=== PATIENT | female | born 1940 | race Caucasian/White ===

== ENCOUNTER 2020-10-03 18:57 | Emergency (ER) | payer MEDICARE, SELFPAY ==
[2020-10-03 19:31] VITALS: BP 165/78; PULSE 106; RESP 16; TEMP 36.4; O2SAT 98; BMI 25.7
[2020-10-03 19:35] VITALS: BP 165/78; PULSE 106; RESP 16; TEMP 36.4; O2SAT 98
[2020-10-03 21:04] LABS: Amphetamine Screen Urine Not Detected (Not Detect); Barbiturates, Urine Not Detected (Not Detect); Benzodiazepines Screen Urine Not Detected (Not Detect); Cannabinoid Screen Urine Not Detected (Not Detect); Cocaine Screen Urine Not Detected (Not Detect); Opiate Screen Urine Not Detected (Not Detect); Phencyclidine Screen Urine Not Detected (Not Detect)
[2020-10-03 22:12] VITALS: BP 172/80; PULSE 100; RESP 18; TEMP 36.5; O2SAT 97
--- NOTE | 2020-10-03 22:17 | ED.PSYCH ---
HPI - Psych General Chief Complaint: Psychiatric Symptoms Stated Complaint: crisis Time Seen by Provider: 10/03/20 22:17 Source: RN notes reviewed Mode of arrival: EMS Limitations: language barrier and other (Dementia) History of Present Illness HPI Narrative: Patient history of dementia came from the [facility] for increased agitation toward staff with history of same in the past staff was unable to control her center here for evaluation on arrival patient been sleeping and relaxed without any agitation Related Data Home Medications Medication Instructions Recorded Confirmed acetylcysteine 2 cap PO BID 10/03/20 10/03/20 albuterol sulfate 90 mcg INHALATION QID PRN 10/03/20 10/03/20 ammonium lactate 1 appl TOPICAL BID 10/03/20 10/03/20 clonazepam 1 mg PO TID 10/03/20 10/03/20 fluocinonide 1 applic TOPICAL DAILY PRN 10/03/20 10/03/20 fluticasone propion-salmeterol 1 inh INHALATION BID 10/03/20 10/03/20 gabapentin 1 cap PO TID 10/03/20 10/03/20 hydroxyzine HCl 1 tab PO TID PRN 10/03/20 10/03/20 insulin aspart U-100 [Novolog See Rx Instructions .ROUTE .COMPLEX 10/03/20 10/03/20 Flexpen U-100 Insulin] insulin glargine [Lantus Solostar 20 unit SUBCUT BID 10/03/20 10/03/20 U-100 Insulin] metoprolol tartrate 1 tab PO BID 10/03/20 10/03/20 montelukast 1 tab PO DAILY 10/03/20 10/03/20 polyethylene glycol 3350 17 g PO DAILY 10/03/20 10/03/20 risperidone 0.75 mg PO DAILY 10/03/20 10/03/20 risperidone 1 tab PO DAILY 10/03/20 10/03/20 tramadol 1 tab PO BID PRN 10/03/20 10/03/20 triamcinolone acetonide 1 appl TOPICAL DAILY PRN 10/03/20 10/03/20 Allergies Allergy/AdvReac Type Severity Reaction Status Date / Time aspirin [ASA] Allergy Unknown RASH Unverified 06/29/20 14:38 niacin [Niacin] Allergy Unknown Rash Unverified 10/03/20 23:59 penicillin G [Penicillin G] Allergy Unknown HIVES Unverified 06/29/20 14:38 penicillin V Allergy Unknown Hives Verified 10/03/20 23:58 Penicillins Allergy Unknown UNKNOWN Unverified 06/29/20 14:38 rofecoxib [From Vioxx] Allergy Unknown UNKNOWN Unverified 06/29/20 14:38 Iodinated Contrast Media Allergy Swelling Verified 10/04/20 00:02 [IV Contrast Dye] moxifloxacin AdvReac Nausea Verified 10/04/20 00:01 Review of Systems Review of Systems: Yes Unobtainable due to mental status [facility] Past Medical History Medical History (Updated 10/03/20 @ 22:47 by Luis M Cantu) Anemia Dementia Diabetes mellitus, type 2 Hypertension Social History Social History Alcohol intake: former Smoking Status: Current some day smoker Smoked in Last 30 Days: Yes Use of substances other than those prescribed or required for medical reasons: No Advance Directives: No Physical Exam Vital Signs: Vital Signs: Last Vital Signs Temp 97.7 F 10/03/20 22:12 Pulse 101 H 10/04/20 00:11 Resp 18 10/03/20 22:12 BP 171/82 H 10/04/20 00:11 Pulse Ox 97 10/03/20 22:12 Body Mass Index 25.7 Appearance: Alert. . No acute distress. Relaxed and sleeping Eyes: Pupils equal, round and reactive to light. ENT: Pharynx normal. Neck: Normal inspection. Neck supple. CVS: Normal heart rate and rhythm. Pulses normal. Respiratory: No respiratory distress. Breath sounds normal. Abdomen: Soft and nontender. Bowel sounds are present, no mass palpable, no CVA tenderness Skin: Skin warm and dry. Normal skin color. Normal skin turgor. Extremities: No lower extremity edema. Neuro: alert. No motor deficit. No sensory deficit. MDM - Psych MDM Narrative Medical decision making narrative: Patient dementia with psychotic behavior will get therapist see the patient for evaluation Restraints Face to Face Assessment: Face to Face Assessment: Current Situation: After assessment of the patient, a review of the pertinent medical record and a discussion with nursing staff, I feel the patient requires a restrain intervention. Reaction To: [] Medical Condition: [] Behavioral State: [] Continued Need: [] Lab Data Labs: Lab Results 10/03/20 10/03/20 10/03/20 Range/Units 20:22 20:38 23:35 POC Glucose 393 H* (60-115) mg/dL Urine Color YELLOW Urine Appearance CLEAR Urine pH 5.5 (5.0-8.0) Ur Specific [place] 1.010 (1.005-1.025) Urine Protein NEG (NEG-TRACE) MG/DL Urine Glucose (UA) 250 H (NEG) MG/DL Urine Ketones NEG (NEG) MG/DL Urine Blood NEG (NEG) Urine Nitrite NEG (NEG) Ur Leukocyte Esterase NEG (NEG) Urine Opiates Screen Not Detected (Not Detect) Ur Barbiturates Screen Not Detected (Not Detect) Ur Phencyclidine Scrn Not Detected (Not Detect) Ur Amphetamines Screen Not Detected (Not Detect) U Benzodiazepines Scrn Not Detected (Not Detect) Urine Cocaine Screen Not Detected (Not Detect) U Marijuana (THC) Screen Not Detected (Not Detect) Discharge Plan Discharge Prescriptions: No Action montelukast 10 mg tablet 1 tab PO DAILY RF: 0 metoprolol tartrate 25 mg tablet 1 tab PO BID RF: 0 acetylcysteine 600 mg capsule 2 cap PO BID RF: 0 clonazepam 0.5 mg tablet 1 mg PO TID RF: 0 risperidone 0.25 mg tablet 0.75 mg PO DAILY RF: 0 gabapentin 100 mg capsule 1 cap PO TID RF: 0 polyethylene glycol 3350 17 gram/dose powder 17 g PO DAILY RF: 0 risperidone 1 mg tablet 1 tab PO DAILY RF: 0 tramadol 50 mg tablet 1 tab PO BID PRN (Reason: Pain) RF: 0 triamcinolone acetonide 0.1 % cream 1 appl topical DAILY PRN (Reason: Itching) RF: 0 fluticasone propion-salmeterol 500-50 mcg/dose blister with device 1 inh inhalation BID RF: 0 hydroxyzine HCl 25 mg tablet 1 tab PO TID PRN (Reason: Itching) RF: 0 ammonium lactate 12 % cream 1 appl topical BID RF: 0 albuterol sulfate 90 mcg/actuation HFA aerosol inhaler 90 mcg inhalation QID PRN (Reason: Dyspnea) RF: 0 fluocinonide 0.05 % cream 1 applic topical DAILY PRN (Reason: Itching) RF: 0 insulin aspart U-100 [Novolog Flexpen U-100 Insulin] 100 unit/mL (3 mL) insulin pen See Rx Instructions .ROUTE .COMPLEX RF: 0 Lantus Solostar U-100 Insulin 100 unit/mL (3 mL) insulin pen 20 unit subcut BID RF: 0
[2020-10-03 22:42] LABS: Glucose Urine UA 250 MG/DL (NEG); Leukocyte Esterase Urine NEG (NEG); Nitrite Urine NEG (NEG); PH 5.5 (5.0-8.0); Urine Blood NEG (NEG); Urine Ketones NEG (NEG); Urine Protein NEG (NEG-TRACE)
[2020-10-03 22:45] VITALS: BMI 25.7
[2020-10-03 22:45] LABS: Appearance Urine CLEAR; Color Urine YELLOW
--- NOTE | 2020-10-03 23:34 | PC.NURSE ---
OSBALDO faxed and called.
[2020-10-03 23:39] LABS: Glucose, Whole Blood 393 mg/dL (60-115)
[2020-10-04] VITALS (12 sets, daily range): BP systolic 160–189; BP diastolic 62–94; PULSE 74–107; RESP 18–24; TEMP 35.8–36.1; O2SAT 97–99
[2020-10-04] MEDS: clonazePAM 0.5 MG TABLET 1 MG PO ×2 (00:11→20:33)
[2020-10-04] MEDS: Metoprolol Tartrate 25 MG TABLET PO ×3 (00:11→20:33)
--- NOTE | 2020-10-04 00:43 | PC.NURSE ---
PT's POC was 393 at 23:35 on 10/03/20. PT was offered long acting and rapid acting insulin per MAR but PT refusing at this time. PT accepted 2 out of 3 of her PO medications. Refusing gabapentin.
[2020-10-04] MEDS: Insulin Lispro 100 UNIT/ML 3 ML VIAL SUBCUT ×4 (00:57→17:58)
[2020-10-04] MEDS: Insulin Glargine,Hum.rec.anlog 100 UNIT/ML 10 ML VIAL 20 UNIT SUBCUT ×2 (01:00→23:43)
--- NOTE | 2020-10-04 03:16 | PC.NURSE ---
PT is out of bed, standing next to the nurse's station and speaking with staff in Malay. PT is calm and cooperative but still confused. PT waiting to be seen by BHN.
[2020-10-04] MEDS: hydrOXYzine HCL 25 MG TABLET PO (04:04)
--- NOTE | 2020-10-04 07:12 | PC.NURSE ---
Report received from CISCO Damico. Pt out in the common area, cooperative w/ care at this time.
[2020-10-04 07:16] LABS: Glucose, Whole Blood 272 mg/dL (60-115)
[2020-10-04] MEDS: Gabapentin 100 MG CAPSULE PO ×2 (08:02→20:34)
[2020-10-04] MEDS: risperiDONE 1 MG TABLET PO (08:02)
[2020-10-04] MEDS: Montelukast Sodium 10 MG TABLET PO (08:13)
--- NOTE | 2020-10-04 08:26 | PC.NURSE ---
Pt awake, restless. Used the bathroom w/ coaching but flushed urine specimen. Pt cooperative w/ care, took medications, accepted insulin. Pt mood variable, food safety specialist called.
--- NOTE | 2020-10-04 08:40 | PC.NURSE ---
Senior Production Manager in. Pt tearful because no one has picked her up. Pt stating 'i want to .' Reassured by freight clerk, pt now on toilet, attempting to give a urine.
--- NOTE | 2020-10-04 09:27 | ECG_ITS ---
Test Reason : MEDECLEARANCE Blood Pressure : / mmHG Vent. Rate : 074 BPM Atrial Rate : 074 BPM P-R Int : 132 ms QRS Dur : 118 ms QT Int : 442 ms P-R-T Axes : 058 051 099 degrees QTc Int : 490 ms Normal sinus rhythm Possible Left atrial enlargement Incomplete left bundle branch block Nonspecific ST and T wave abnormality Prolonged QT Abnormal ECG When compared with ECG of 22-MAR-2019 13:27, Nonspecific T wave abnormality now evident in Inferior leads Referred By: Generic ED Physician Electronically Signed By:LIVE REYNAGA MD
[2020-10-04 09:31] LABS: Basophils Percent Auto 0.4 % (0-2); Eosinophils Absolute Auto 0.3 X10*3/uL (0.0-0.4); Hematocrit 37.3 % (37-47); Imm Gran Abs Auto 0.04 X10*3/uL (0.00-0.03); Imm Gran Pct Auto 0.5 % (0.0-0.4); Lymphocytes Absolute Auto 1.7 X10*3/uL (1.2-4.9); Lymphocytes Percent Auto 21.7 % (20-40); Mean Corpuscular HGB Conc 32.2 g/dl (31.0-35.0); Mean Corpuscular Hemoglobin 27.6 pg (27.0-33.0); Mean Corpuscular Volume 85.9 fL (80-98); Mean Platelet Volume 9.7 fL (9.4-12.3); Monocytes Absolute Auto 0.7 X10*3/uL (0.1-1.2); Monocytes Percent Auto 9.5 % (2-11); Neutrophils Absolute Auto 4.9 X10*3/uL (2.0-8.3); Neutrophils Percent Auto 63.9 % (45-73); Platelet Count 295 X10*3/uL (160-400); Red Blood Count 4.34 X10*6/uL (4.20-5.50); Red Cell Distribution Width 13.5 % (11.0-16.0); White Blood Count 7.7 X10*3/uL (4.8-10.8)
[2020-10-04 09:32] LABS: MANUAL DIFF FLAG NO
--- NOTE | 2020-10-04 09:44 | PC.NURSE ---
Pt placed on 1:1 while awake due to increased restlessness, wandering and occasional confusion re: room. Pt briefly placed hand on chest indicating discomfort. Carmelita Osullivan aware, EKG completed. Pt currently resting in room.
[2020-10-04 10:00] LABS: Alanine Aminotransferase 32 U/L (0-31); Albumin Level 4.4 g/dL (3.5-5.0); Alkaline Phosphatase 75 U/L (39-117); Anion Gap 13 (12-20); Aspartate Amino Transferase 23 U/L (5-31); Bilirubin Direct < 0.2 mg/dL (0.0-0.5); Bilirubin Total 0.3 mg/dL (0.0-1.0); Blood Urea Nitrogen 18 mg/dL (9-16); Calcium 10.1 mg/dL (8.4-10.2); Carbon Dioxide 29 mmol/L (22-29); Chloride 95 mmol/L (96-108); Creatinine Clr Calc Pharmacy 39.4; Estimated Glomerular Filt Rate 49; Glucose Random 343 mg/dL (60-115); Magnesium 1.7 mg/dL (1.6-2.6); Potassium 4.5 mmol/l (3.3-5.1); Sodium 132 mmol/L (135-145); Total Protein 8.2 g/dL (6.5-8.0)
--- NOTE | 2020-10-04 10:03 | PC.NURSE ---
Pharmacy called re: medications unavailable in ED
--- NOTE | 2020-10-04 11:20 | PC.NURSE ---
Pt restless, mood variable, pt redirectable but requires 1:1 care for safety, clinic charge nurse aware. BHN in, or assistant present.
[2020-10-04] MEDS: Ammonium Lactate 12 % Cream 140 GM TUBE 1 APPL TOPICAL (11:37)
[2020-10-04] MEDS: Fluticasone/Vilanterol 200/25 BLST.W.DEV 1 PUFF INHALE (11:38)
[2020-10-04 11:49] LABS: Glucose, Whole Blood 346 mg/dL (60-115)
[2020-10-04] MEDS: LORazepam 2 MG/ML VIAL 1 MG IM (14:14)
--- NOTE | 2020-10-04 14:38 | PC.NURSE ---
Pt increasingly restless, intrusive, attempting to enter other people's rooms. Offered vistaril- pt declined. Called ginger farmer pt offered clonazepam and gabapentin as ordered- pt spit out despite multiple attempts. Pt becoming more aggressive, pushing staff, yelling at another pt. A Shi called- pt given Ativan IM as ordered.
--- NOTE | 2020-10-04 15:21 | MHC.CM.ED ---
Received case management consult from Rosie MORATAYA. Patient was cleared by [facility] and needs to return to [facility]. Referral made via allscripts. They are requesting [facility] eval before patient can return. Per [facility], eval will not be available tonight. Anticipate patient will remain in ER overnight. Corrina PECK aware. Continue to monitor for d/c needs.
--- NOTE | 2020-10-04 15:29 | PC.NURSE ---
Pt continues to pace, is restless though more easily redirected. Pt maintained on a 1:1 for safety related to dementia related intrusiveness
--- NOTE | 2020-10-04 16:03 | PC.NURSE ---
Pt pleasant, slightly hypersexual, putting hands on staff but not aggressive, more easily redirected.
--- NOTE | 2020-10-04 17:45 | PC.NURSE ---
Pt resting, resp unlabored
[2020-10-04 17:57] LABS: Glucose, Whole Blood 285 mg/dL (60-115)
[2020-10-04] MEDS: risperiDONE 0.25 MG TABLET 0.75 MG PO (18:09)
--- NOTE | 2020-10-04 18:12 | PC.NURSE ---
Pt continues to pace and be restless. Accepted insulin and risperdal. Pt declining supper at this time. Kitchen called, requested hamburger, which she ate at dinner. Pharmacy called to change risperdal dosing per instruction to 1800.
--- NOTE | 2020-10-04 18:27 | PC.NURSE ---
Pt brought to bathroom and toileted, voiding moderate amount.
--- NOTE | 2020-10-04 18:32 | PC.NURSE ---
Pt ate small amount of pudding, offered hamburger.
--- NOTE | 2020-10-04 22:05 | PC.NURSE ---
Patient took HS PO medication, spat out partially swallowed medication, provider notified/advised to use pudding next time, patient refused POC, will try later, patient trying to isolate herself in the room. will continue to monitor.
[2020-10-04 23:38] LABS: Glucose, Whole Blood 281 mg/dL (60-115)
[2020-10-05 00:05] VITALS: BP 154/91; PULSE 113; RESP 17; TEMP 35.8; O2SAT 99
[2020-10-05] MEDS: Ammonium Lactate 12 % Cream 140 GM TUBE 1 APPL TOPICAL ×3 (00:25→21:55)
[2020-10-05] MEDS: risperiDONE 1 MG TABLET PO ×2 (00:42→10:03)
[2020-10-05] MEDS: Insulin Lispro 100 UNIT/ML 3 ML VIAL SUBCUT ×5 (01:09→20:42)
--- NOTE | 2020-10-05 01:14 | PC.NURSE ---
Patient has no insight, psychotic, needs ADL support for care, showered, patient voided in her water jar and jar was removed immediately, patient needs lot of redirection, will continue to monitor.
--- NOTE | 2020-10-05 06:43 | PC.NURSE ---
OSBALDO called/spoke with Kyler/requested to fax evaluation. [facility] [place] faxed us evaluation
--- NOTE | 2020-10-05 07:05 | PC.NURSE ---
Report received. PT currently sleeping, respirations even and unlabored, in no apparent distress. OSBALDO tillman received. To be given to case management this monring.
--- NOTE | 2020-10-05 08:26 | MHC.CM.ED ---
Patient remains in ER. Copy of N eval obtained and sent to [facility]. Continue to monitor for d/c needs.
[2020-10-05 09:15] LABS: Glucose, Whole Blood 341 mg/dL (60-115)
[2020-10-05 10:03] VITALS: BP 154/91; PULSE 113
[2020-10-05] MEDS: clonazePAM 0.5 MG TABLET 1 MG PO ×3 (10:03→20:35)
[2020-10-05] MEDS: Montelukast Sodium 10 MG TABLET PO (10:03)
[2020-10-05] MEDS: Gabapentin 100 MG CAPSULE PO ×3 (10:03→20:10)
[2020-10-05] MEDS: Metoprolol Tartrate 25 MG TABLET PO ×2 (10:03→20:11)
[2020-10-05] MEDS: Insulin Glargine,Hum.rec.anlog 100 UNIT/ML 10 ML VIAL 20 UNIT SUBCUT ×2 (10:03→20:37)
[2020-10-05] MEDS: polyethylene glycoL 3350 17 GM POWD.PACK PO (10:03)
[2020-10-05] MEDS: Fluticasone/Vilanterol 200/25 BLST.W.DEV 1 PUFF INHALE (10:23)
[2020-10-05 10:25] VITALS: PULSE 98; O2SAT 99
--- NOTE | 2020-10-05 11:24 | MHC.CM.ED ---
Per Ronni at [facility], they will not be able to accept patient today since she received PRN antipsychotic. Leatha Redd has been asked to see patient for medication recommendations. Continue to monitor for d/c needs.
[2020-10-05 12:50] LABS: Glucose, Whole Blood 270 mg/dL (60-115)
--- NOTE | 2020-10-05 13:06 | P.CNPS_ITS ---
History of Present Illness Date of Service: 10/05/2020 Chief Complaint: crisis Reason for Consult: medication eval Requesting physician: Janki Marlow Discussed with referring provider: No Sources of Information: patient interviewed, chart reviewed and crisis/core team assessment reviewed HPI Narrative: Patient is a 80 year old Georgian speaking female with history of dementia who currently resides at [facility]--presented to ED after reported aggressive behaviors at residence. Crisis evaluation reviewed, minimal information included in evaluation--so unclear if reported behaviors are acute or worsening over time, etc. While in ED patient has required some redirection and mainly around entering other patient rooms. Did require one extra dose of Risperdal, but it is reported that is because she spit out her scheduled dose earlier in the evening. When seen by this sports writer, patient was initially asleep, then woke to use the restroom. She was unable to engage in any meaningful conversation. Medical Evaluation Reviewed: Yes EKG shows prolonged QT slight hyponatremia at 132 Review of Systems Review of Systems Yes Unobtainable due to mental status [facility] Medical History (Updated 10/05/20 @ 13:35 by Leatha Redd CNP) Anemia Dementia Diabetes mellitus, type 2 Hypertension Diagnostics Vital Signs (24Hr): Vital Signs - 24 hr 10/04/20 14:15 10/04/20 14:30 10/04/20 14:45 Temperature Pulse Rate Respiratory Rate 24 H 24 H 20 Blood Pressure Pulse Oximetry 10/04/20 15:00 10/04/20 15:15 10/04/20 20:33 Temperature Pulse Rate 107 H Respiratory Rate 18 22 H Blood Pressure 189/94 H Pulse Oximetry 10/04/20 20:34 10/05/20 00:05 10/05/20 10:03 Temperature 97 F 96.4 F L Pulse Rate 107 H 113 H 113 H Respiratory Rate 20 17 Blood Pressure 189/94 H 154/91 H 154/91 H Pulse Oximetry 97 99 10/05/20 10:25 Temperature Pulse Rate 98 Respiratory Rate Blood Pressure Pulse Oximetry Body Mass Index 25.7 Labs Results: 10/04/20 09:22 10/04/20 09:22 Labs: Laboratory Results - last 48 hr 10/03/20 10/03/20 10/03/20 20:22 20:38 23:35 WBC RBC Hgb Hct MCV MCH MCHC RDW Plt Count MPV Immature Gran % (Auto) Neut % (Auto) Lymph % (Auto) [place] % (Auto) Eos % (Auto) Baso % (Auto) Lymph # (Auto) [place] # (Auto) Eos # (Auto) Baso # (Auto) Abs Immat Gran (auto) Absolute Neuts (auto) Absolute Nucleated RBC Nucleated RBC % (auto) Hold Blue Top Sodium Potassium Chloride Carbon Dioxide Anion Gap BUN Creatinine Estim Creat Clear Calc Estimated GFR POC Glucose 393 H* Random Glucose Calcium Magnesium Total Bilirubin Direct Bilirubin AST ALT Alkaline Phosphatase Total Protein Albumin Urine Color YELLOW Urine Appearance CLEAR Urine pH 5.5 Ur Specific [place] 1.010 Urine Protein NEG Urine Glucose (UA) 250 H Urine Ketones NEG Urine Blood NEG Urine Nitrite NEG Ur Leukocyte Esterase NEG Urine Opiates Screen Not Detected Ur Barbiturates Screen Not Detected Ur Phencyclidine Scrn Not Detected Ur Amphetamines Screen Not Detected U Benzodiazepines Scrn Not Detected Urine Cocaine Screen Not Detected U Marijuana (THC) Screen Not Detected 10/04/20 10/04/20 10/04/20 07:12 09:22 09:22 WBC 7.7 RBC 4.34 Hgb 12.0 Hct 37.3 MCV 85.9 MCH 27.6 MCHC 32.2 RDW 13.5 Plt Count 295 MPV 9.7 Immature Gran % (Auto) 0.5 H Neut % (Auto) 63.9 Lymph % (Auto) 21.7 [place] % (Auto) 9.5 Eos % (Auto) 4.0 Baso % (Auto) 0.4 Lymph # (Auto) 1.7 [place] # (Auto) 0.7 Eos # (Auto) 0.3 Baso # (Auto) 0.0 Abs Immat Gran (auto) 0.04 H Absolute Neuts (auto) 4.9 Absolute Nucleated RBC 0.000 Nucleated RBC % (auto) 0.0 Hold Blue Top SEE NOTE Sodium Potassium Chloride Carbon Dioxide Anion Gap BUN Creatinine Estim Creat Clear Calc Estimated GFR POC Glucose 272 H Random Glucose Calcium Magnesium Total Bilirubin Direct Bilirubin AST ALT Alkaline Phosphatase Total Protein Albumin Urine Color Urine Appearance Urine pH Ur Specific [place] Urine Protein Urine Glucose (UA) Urine Ketones Urine Blood Urine Nitrite Ur Leukocyte Esterase Urine Opiates Screen Ur Barbiturates Screen Ur Phencyclidine Scrn Ur Amphetamines Screen U Benzodiazepines Scrn Urine Cocaine Screen U Marijuana (THC) Screen 10/04/20 10/04/20 10/04/20 09:22 11:45 17:51 WBC RBC Hgb Hct MCV MCH MCHC RDW Plt Count MPV Immature Gran % (Auto) Neut % (Auto) Lymph % (Auto) [place] % (Auto) Eos % (Auto) Baso % (Auto) Lymph # (Auto) [place] # (Auto) Eos # (Auto) Baso # (Auto) Abs Immat Gran (auto) Absolute Neuts (auto) Absolute Nucleated RBC Nucleated RBC % (auto) Hold Blue Top Sodium 132 L Potassium 4.5 Chloride 95 L Carbon Dioxide 29 Anion Gap 13 BUN 18 H Creatinine 1.08 Estim Creat Clear Calc 39.4 Estimated GFR 49 POC Glucose 346 H 285 H Random Glucose 343 H Calcium 10.1 Magnesium 1.7 Total Bilirubin 0.3 Direct Bilirubin < 0.2 AST 23 ALT 32 H Alkaline Phosphatase 75 Total Protein 8.2 H Albumin 4.4 Urine Color Urine Appearance Urine pH Ur Specific [place] Urine Protein Urine Glucose (UA) Urine Ketones Urine Blood Urine Nitrite Ur Leukocyte Esterase Urine Opiates Screen Ur Barbiturates Screen Ur Phencyclidine Scrn Ur Amphetamines Screen U Benzodiazepines Scrn Urine Cocaine Screen U Marijuana (THC) Screen 10/04/20 10/05/20 10/05/20 23:33 09:11 12:45 WBC RBC Hgb Hct MCV MCH MCHC RDW Plt Count MPV Immature Gran % (Auto) Neut % (Auto) Lymph % (Auto) [place] % (Auto) Eos % (Auto) Baso % (Auto) Lymph # (Auto) [place] # (Auto) Eos # (Auto) Baso # (Auto) Abs Immat Gran (auto) Absolute Neuts (auto) Absolute Nucleated RBC Nucleated RBC % (auto) Hold Blue Top Sodium Potassium Chloride Carbon Dioxide Anion Gap BUN Creatinine Estim Creat Clear Calc Estimated GFR POC Glucose 281 H 341 H 270 H Random Glucose Calcium Magnesium Total Bilirubin Direct Bilirubin AST ALT Alkaline Phosphatase Total Protein Albumin Urine Color Urine Appearance Urine pH Ur Specific [place] Urine Protein Urine Glucose (UA) Urine Ketones Urine Blood Urine Nitrite Ur Leukocyte Esterase Urine Opiates Screen Ur Barbiturates Screen Ur Phencyclidine Scrn Ur Amphetamines Screen U Benzodiazepines Scrn Urine Cocaine Screen U Marijuana (THC) Screen Mental Status Exam Mental Status Exam Level of Consciousness: Awake Patient Behavior: Wandering Mood Description: Anxious Affect Description: Anxious Ability to Follow Directions: Fair Speech Pattern: Clear and Rambling Thought Process: Confusion Thought Content: positive for [place] Judgement: Poor Medications Medications Current Medications Generic Name Dose Route Start Last Admin Trade Name Freq PRN Reason Stop Dose Admin Albuterol Sulfate 2 puff 10/03/20 23:46 Albuterol Sulfate 90 Mcg 8 Gm Inhaler INHALE QID PRN Dyspnea Clonazepam 1 mg 10/03/20 23:45 10/05/20 10:03 Clonazepam 0.5 Mg Tablet PO 1 mg TID DANIELLE Administration Fluticasone/Vilanterol 1 puff 10/04/20 09:00 10/05/20 10:23 Fluticasone/Vilanterol 200/25 Blst.W.Dev INHALE 1 puff DAILY DANIELLE Administration Gabapentin 100 mg 10/03/20 23:45 10/05/20 10:03 Gabapentin 100 Mg Capsule PO 100 mg TID DANIELLE Administration Hydroxyzine HCl 25 mg 10/03/20 23:46 10/04/20 04:04 Hydroxyzine Hcl 25 Mg Tablet PO 25 mg TID PRN Administration Itching Insulin Glargine 20 unit 10/03/20 23:45 10/05/20 10:03 Insulin Glargine,Hum.Rec.Anlog 100 Unit/Ml 10 Ml Vial SUBCUT 20 unit BID DANIELLE Administration Insulin Human Lispro 0 unit 10/04/20 07:30 10/05/20 09:19 Insulin Lispro 100 Unit/Ml 3 Ml Vial SUBCUT 8 unit QIDACHS [facility] Administration Protocol Lactic Acid 1 appl 10/04/20 09:00 10/05/20 10:03 Ammonium Lactate 12 % Cream 140 Gm Tube TOPICAL 1 appl BID [facility] Administration Protocol Metoprolol Tartrate 25 mg 10/03/20 23:45 10/05/20 10:03 Metoprolol Tartrate 25 Mg Tablet PO 25 mg BID DANIELLE Administration Protocol Montelukast Sodium 10 mg 10/04/20 09:00 10/05/20 10:03 Montelukast Sodium 10 Mg Tablet PO 10 mg DAILY DANIELLE Administration Non-Formulary Medication 2 cap 10/04/20 09:00 Acetylcysteine PO BID DANIELLE Non-Formulary Medication 1 applic 10/03/20 23:46 Fluocinonide TOPICAL DAILY PRN Itching Polyethylene Glycol 17 gm 10/04/20 09:00 10/05/20 10:03 Polyethylene Glycol 3350 17 Gm Powd.Pack PO 17 gm DAILY DANIELLE Administration Risperidone 1 mg 10/04/20 09:00 10/05/20 10:03 Risperidone 1 Mg Tablet PO 1 mg DAILY DANIELLE Administration Risperidone 0.75 mg 10/05/20 18:00 Risperidone 0.25 Mg Tablet PO DAILY@1800 DANIELLE Tramadol HCl 50 mg 10/03/20 23:46 Tramadol Hcl 50 Mg Tablet PO BID PRN Pain Triamcinolone Acetonide 1 appl 10/03/20 23:46 Triamcinolone Acet 0.1 % Cream 15 Gm Tube TOPICAL DAILY PRN Itching Protocol Allergies Allergies Allergy/AdvReac Type Severity Reaction Status Date / Time aspirin [ASA] Allergy Unknown RASH Unverified 06/29/20 14:38 niacin [Niacin] Allergy Unknown Rash Unverified 10/03/20 23:59 penicillin G [Penicillin G] Allergy Unknown HIVES Unverified 06/29/20 14:38 penicillin V Allergy Unknown Hives Verified 10/03/20 23:58 Penicillins Allergy Unknown UNKNOWN Unverified 06/29/20 14:38 rofecoxib [From Vioxx] Allergy Unknown UNKNOWN Unverified 06/29/20 14:38 Iodinated Contrast Media Allergy Swelling Verified 10/04/20 00:02 [IV Contrast Dye] moxifloxacin AdvReac Nausea Verified 10/04/20 00:01 Assessment & Plan Assessment & Plan (1) Dementia: Status: Acute Code(s): F03.90 - Unspecified dementia without behavioral disturbance Recommendations: -follow up with outpatient provider regarding additional medication changes -labwork to be repeated Greater than 50% of the session was spent on counseling and/or coordination of care
[2020-10-05 14:18] LABS: Alanine Aminotransferase 32 U/L (0-31); Albumin Level 3.5 g/dL (3.5-5.0); Alkaline Phosphatase 61 U/L (39-117); Anion Gap 18 (12-20); Aspartate Amino Transferase 37 U/L (5-31); Bilirubin Total 0.3 mg/dL (0.0-1.0); Blood Urea Nitrogen 29 mg/dL (9-16); Calcium 9.5 mg/dL (8.4-10.2); Carbon Dioxide 20 mmol/L (22-29); Chloride 100 mmol/L (96-108); Creatinine Clr Calc Pharmacy 41.7; Estimated Glomerular Filt Rate 52; Glucose Random 262 mg/dL (60-115); Potassium 5.5 mmol/l (3.3-5.1); Sodium 132 mmol/L (135-145)
[2020-10-05 14:29] VITALS: RESP 16
--- NOTE | 2020-10-05 14:30 | ECG_ITS ---
Test Reason : CARDIAC HX Blood Pressure : / mmHG Vent. Rate : 085 BPM Atrial Rate : 085 BPM P-R Int : 146 ms QRS Dur : 112 ms QT Int : 410 ms P-R-T Axes : 064 040 167 degrees QTc Int : 487 ms Normal sinus rhythm Incomplete left bundle branch block Nonspecific T wave abnormality Prolonged QT Abnormal ECG When compared with ECG of 04-OCT-2020 09:32, No significant change was found Referred By: Sly Knight Electronically Signed By:LIVE REYNAGA MD
[2020-10-05] MEDS: Sodium Polystyrene Sulfon/Sorb 15 GM/60 ML ORAL.SUSP 45 GM PO (14:41)
[2020-10-05 18:22] LABS: Glucose, Whole Blood 229 mg/dL (60-115)
[2020-10-05] MEDS: risperiDONE 0.25 MG TABLET 0.75 MG PO (20:10)
[2020-10-05 20:11] VITALS: BP 171/92; PULSE 111
[2020-10-05 20:24] LABS: Glucose, Whole Blood 303 mg/dL (60-115)
[2020-10-05 21:59] VITALS: BP 112/49; PULSE 79; RESP 16; TEMP 36.6; O2SAT 97
--- NOTE | 2020-10-05 22:08 | PC.NURSE ---
RECVD REPORT FROM ABDOUL PECK. PT WHEELED INTO ED IN WHEELCHAIR, 1 PERSON ASSIST FROM WHEELCHAIR TO BED, PT L SIDE LYING IN BED SLEEPING, RR EVEN UNLABORED, SKIN WPD, NAD. PT AWAITING CM EVAL.
[2020-10-06] VITALS (7 sets, daily range): BP systolic 98–142; BP diastolic 46–77; PULSE 84–100; RESP 14–18; TEMP 36.8; O2SAT 95–97
--- NOTE | 2020-10-06 01:25 | PC.NURSE ---
PATIENT SLEEPING AT THIS TIME, NO ACUTE DISTRESS NOTED. RESPIRATIONS EVEN/UNLABORED. WILL CONTINUE TO MONITOR.
--- NOTE | 2020-10-06 05:47 | PC.NURSE ---
patient continues to sleep at this time. respirations even/unlabored. did not disturb. breakfast ordered. will continue to monitor.
--- NOTE | 2020-10-06 07:08 | PC.NURSE ---
REPORT TAKEN FROM EFRAÍN PECK PT APPEARS SLEEPING, BREAKFAST AT BEDSIDE. RR EVEN/UNLABORED. ALERT TO TACTILE STIMULI. WCTM.
[2020-10-06 08:12] LABS: Glucose, Whole Blood 204 mg/dL (60-115)
--- NOTE | 2020-10-06 08:15 | PC.NURSE ---
pt appears sleeping, arousable to tactile and loud verbal stimuli but easily falling back asleep. pt has not eaten any breakfast, poc glucose checked. insulin coverage held at this time d/t pt status. vss.
[2020-10-06] MEDS: Gabapentin 100 MG CAPSULE PO ×2 (10:28→21:36)
[2020-10-06] MEDS: Metoprolol Tartrate 25 MG TABLET PO ×2 (10:28→21:36)
[2020-10-06] MEDS: risperiDONE 1 MG TABLET PO (10:28)
[2020-10-06] MEDS: clonazePAM 0.5 MG TABLET 1 MG PO ×2 (10:28→21:36)
[2020-10-06] MEDS: Fluticasone/Vilanterol 200/25 BLST.W.DEV 1 PUFF INHALE (10:29)
[2020-10-06] MEDS: Montelukast Sodium 10 MG TABLET PO (10:29)
[2020-10-06] MEDS: Ammonium Lactate 12 % Cream 140 GM TUBE 1 APPL TOPICAL ×2 (10:29→21:37)
[2020-10-06] MEDS: Insulin Glargine,Hum.rec.anlog 100 UNIT/ML 10 ML VIAL 20 UNIT SUBCUT (10:29)
[2020-10-06] MEDS: polyethylene glycoL 3350 17 GM POWD.PACK PO (10:30)
--- NOTE | 2020-10-06 10:40 | PC.NURSE ---
medicated per emar, pt given morning meds w apple juice which pt tolerated. pt has hx of spitting meds. resting in stretcher, alert to verbal stimuli. wctm.
[2020-10-06 11:40] LABS: Glucose, Whole Blood 189 mg/dL (60-115)
--- NOTE | 2020-10-06 14:03 | PC.NURSE ---
pt continues to sleep throughout afternoon, easily arousable to verbal and tactile stimuli. attempting w guamanian speaking staff to get pt to eat lunch. pt refusing to eat any items on lunch tray. has been drinking juice throughout morning and took morning medications. vss. arias.
[2020-10-06 18:57] LABS: Glucose, Whole Blood 159 mg/dL (60-115)
[2020-10-06] MEDS: risperiDONE 0.25 MG TABLET 0.75 MG PO (19:21)
--- NOTE | 2020-10-06 19:26 | PC.NURSE ---
Patient still refusing to eat. Insulin coverage held as patient's blood sugar was 159. MD aware. Patient medicated per emar as noted.
[2020-10-06 20:51] LABS: Glucose, Whole Blood 200 mg/dL (60-115)
[2020-10-07] VITALS (14 sets, daily range): BP systolic 95–165; BP diastolic 41–91; PULSE 78–91; RESP 14–22; TEMP 36.7–36.8; O2SAT 96–99
[2020-10-07 07:49] LABS: Glucose, Whole Blood 177 mg/dL (60-115)
[2020-10-07] MEDS: Ammonium Lactate 12 % Cream 140 GM TUBE 1 APPL TOPICAL ×2 (08:09→20:40)
[2020-10-07] MEDS: Fluticasone/Vilanterol 200/25 BLST.W.DEV 1 PUFF INHALE (08:09)
[2020-10-07] MEDS: clonazePAM 0.5 MG TABLET 1 MG PO ×2 (08:10→20:37)
[2020-10-07] MEDS: risperiDONE 1 MG TABLET PO (08:10)
[2020-10-07] MEDS: Metoprolol Tartrate 25 MG TABLET PO ×2 (08:10→20:37)
[2020-10-07] MEDS: Montelukast Sodium 10 MG TABLET PO (08:10)
[2020-10-07] MEDS: Gabapentin 100 MG CAPSULE PO ×2 (08:10→20:39)
[2020-10-07] MEDS: Insulin Glargine,Hum.rec.anlog 100 UNIT/ML 10 ML VIAL 20 UNIT SUBCUT ×2 (08:11→20:37)
--- NOTE | 2020-10-07 10:23 | MHC.CM.ED ---
consulted aidee ordaz caring for patient in the e.d. today... patient is still sedated c minimal responsiveness and has not eaten in last 24 hrs. pt would not be appropriate to return to snf at this time. dc plan is for patient to return to [facility] where she came from. cm to cont. to follow.
[2020-10-07] MEDS: traMADoL HCL 50 MG TABLET PO (11:34)
[2020-10-07 11:59] LABS: Glucose, Whole Blood 239 mg/dL (60-115)
--- NOTE | 2020-10-07 13:38 | MHC.CM.PN ---
UPDATES SENT TO [facility] VIA [email or web address]. CASE MANAGEMENT FOLLOWING
--- NOTE | 2020-10-07 13:52 | MHC.CM.ED ---
[facility] HAS INFORMED CASE MANAGEMENT THAT PATIENT WILL HAVE TO WAIT UNTIL FRIDAY IN ORDER FOR US TO RE-QUARANTINE HER
[2020-10-07] MEDS: LORazepam 2 MG/ML VIAL 0.5 MG IM (17:06)
[2020-10-07] MEDS: hydrOXYzine HCL 50 MG/ML VIAL IM (17:19)
[2020-10-07 20:22] LABS: Glucose, Whole Blood 178 mg/dL (60-115)
[2020-10-07] MEDS: Insulin Lispro 100 UNIT/ML 3 ML VIAL SUBCUT (20:36)
[2020-10-08] VITALS: BP 136/66; PULSE 84; RESP 16; O2SAT 96
--- NOTE | 2020-10-08 07:51 | PC.NURSE ---
PT IS SLEEPING AT SHIFT CHANGE, COLOR IS PINK AND RESP ARE EQUAL AND NONLABORED
--- NOTE | 2020-10-08 09:19 | PC.NURSE ---
Pt in nad, continues to sleep. Respirations are even and unlabored, skin is pwdi. Will continue to monitor. Pending case management service for placement.
[2020-10-08 09:29] VITALS: RESP 14
--- NOTE | 2020-10-08 09:29 | MHC.CM.ED ---
Review of ED summary and all CM notes: Met with pt to confirm d/c plans: Pt will be able to return to [facility] on Friday, 10/09 with a negative COVID test and new [facility] quarantine protocol. Pt agrees with plan. Updated ED care team on above.
[2020-10-08 11:59] VITALS: RESP 16
[2020-10-08 15:37] VITALS: BP 141/83; PULSE 98; RESP 16
[2020-10-08 15:52] LABS: Glucose, Whole Blood 165 mg/dL (60-115)
--- NOTE | 2020-10-08 15:58 | PC.NURSE ---
Pt awake, got up to use bathroom. Currently sitting up in recliner.
[2020-10-08] MEDS: clonazePAM 0.5 MG TABLET 1 MG PO ×2 (16:06→21:29)
[2020-10-08] MEDS: Gabapentin 100 MG CAPSULE PO ×2 (16:07→21:29)
--- NOTE | 2020-10-08 16:16 | MHC.CM.ED ---
Pt will return to [facility] on 10/09 per communication with admissions liasion. Pt will need a negative rapid COVID result prior to transfer. This information was relayed to the ED provider who will note it in the ED summary for the next provider to order on 10/09. Informed pt of d/c plan - she nodded in acceptance and asked to go back to sleep. CM will follow
--- NOTE | 2020-10-08 16:17 | PC.NURSE ---
Pt medicated with 3pm medication. Tolerated well.
--- NOTE | 2020-10-08 16:48 | PC.NURSE ---
Pt back to bed, declined food at this time. Insulin held due to pt not eating at this time blood sugar 165. RAFIA Haider aware and agrees.
[2020-10-08] MEDS: Ammonium Lactate 12 % Cream 140 GM TUBE 1 APPL TOPICAL (21:29)
[2020-10-08] MEDS: Insulin Glargine,Hum.rec.anlog 100 UNIT/ML 10 ML VIAL 20 UNIT SUBCUT (21:29)
[2020-10-08 21:30] VITALS: BP 168/75; PULSE 94
[2020-10-08] MEDS: Metoprolol Tartrate 25 MG TABLET PO (21:30)
--- NOTE | 2020-10-08 21:30 | PC.NURSE ---
PATIENT MEDICATED AND GIVEN A SNACK. PATIENT IS ALERT ABLE TO COMMUNICATE NEEDS. NO DISTRESS NOTED. AMBULATED WITH ASSIST OF 1 TO THE RESTROOM, HAVING SOME LOOSE STOOL. NO COMPLAINTS AT THIS TIME. IN VIEW OF NURSING STAFF AT THE NURSES STATION.
[2020-10-08 21:58] LABS: Glucose, Whole Blood 205 mg/dL (60-115)
[2020-10-08] MEDS: Insulin Lispro 100 UNIT/ML 3 ML VIAL SUBCUT (22:01)
--- NOTE | 2020-10-08 23:16 | PC.NURSE ---
REPORT FROM CISCO THAPA. PATIENT RESTING ON STRETCHER AWAITING DISPOSITION FROM CASE [facility]NAG[facility] FOR FACILITY PLACEMENT, ?[place] ON FRIDAY.
[2020-10-09] VITALS (8 sets, daily range): BP systolic 123–156; BP diastolic 56–74; PULSE 73–94; RESP 16–20; TEMP 36.2–37; O2SAT 96–99
[2020-10-09 07:12] LABS: Glucose, Whole Blood 195 mg/dL (60-115)
[2020-10-09] MEDS: Insulin Lispro 100 UNIT/ML 3 ML VIAL SUBCUT ×3 (07:26→16:37)
[2020-10-09 09:37] LABS: COVID-19 Test Negative (Negative)
--- NOTE | 2020-10-09 09:45 | MHC.CM.ED ---
Patient remains in ER. Clinical updates, including negative Covid provided to Anabella Hernandez. Continue to monitor for d/c needs.
[2020-10-09 10:05] LABS: Glucose, Whole Blood 165 mg/dL (60-115)
--- NOTE | 2020-10-09 10:49 | MHC.CM.ED ---
Received notification from Ronni, liaison at [facility], they would not be able to accept patient back due to baheaviors including requiring 2 security guards at bedside and requiring IM Ativan. . T/W explained that was on 10/07 around 4pm. Also explained nursing notes show no behaviors since then. Jose will provide this information to the director of home economics for the [facility]. Val Warner, egg caser aware. Continue to monitor for d/c needs.
[2020-10-09] MEDS: Ammonium Lactate 12 % Cream 140 GM TUBE 1 APPL TOPICAL (11:26)
[2020-10-09] MEDS: Gabapentin 100 MG CAPSULE PO ×3 (11:26→21:06)
[2020-10-09] MEDS: Metoprolol Tartrate 25 MG TABLET PO ×2 (11:26→21:07)
[2020-10-09] MEDS: Montelukast Sodium 10 MG TABLET PO (11:26)
[2020-10-09] MEDS: risperiDONE 1 MG TABLET PO (11:26)
[2020-10-09] MEDS: polyethylene glycoL 3350 17 GM POWD.PACK PO (11:26)
[2020-10-09] MEDS: Fluticasone/Vilanterol 200/25 BLST.W.DEV 1 PUFF INHALE (11:27)
[2020-10-09 12:38] LABS: Glucose, Whole Blood 190 mg/dL (60-115)
--- NOTE | 2020-10-09 14:57 | MHC.CM.ED ---
Received notification from liliana Rudolphison at [facility] that a quarentine bed will not be available until Wed. Patient can return to facility then, as long as there are no behavior issues. Continue to monitor for d/c needs.
--- NOTE | 2020-10-09 15:12 | MHC.CM.ED ---
Spoke with patient's brother/hcp Sarthak via telephone at [phone]. Explained patient is expected to return to [facility] on . Sarthak verbalized understanding. Continue to monitor for d/c notes.
[2020-10-09 16:33] LABS: Glucose, Whole Blood 163 mg/dL (60-115)
--- NOTE | 2020-10-09 19:00 | PC.NURSE ---
REPORT RECEIVED FROM CISCO DASH. PT SLEEPING AT THIS TIME, MEDS HELD DUE TO SLEEPING. WILL CONTINUE TO MONITOR.
[2020-10-09] MEDS: risperiDONE 0.25 MG TABLET 0.75 MG PO (21:06)
[2020-10-09] MEDS: Insulin Glargine,Hum.rec.anlog 100 UNIT/ML 10 ML VIAL 20 UNIT SUBCUT (21:07)
--- NOTE | 2020-10-09 21:07 | PC.NURSE ---
PATIENT OUT OF BED, AMBULATING AROUND UNIT, ATTEMPTED TO ENTER ANOTHER PATIENT'S ROOM, BUT WAS RE-DIRECTED AWAY FROM ROOM. LINENS CHANGED, WARM BLANKET GIVEN. GIVEN APPLE JUICE, ORANGE JUICE, AND WATER REQUESTED. RAMBLING IN YAKUT, OCCASIONALLY SWEARING, BUT RE-DIRECTABLE. ATTEMPTED TO OBTAIN POC GLUCOSE, BUT WAS UNABLE TO AT THIS TIME DUE TO FLOW ERROR ON GLUCOMETER. GIVEN LANTUS IN RIGHT UPPER ARM. WILL RE-ATTEMPT TO CHECK POC GLUCOSE AT A LATER TIME. MEDICATIONS CRUSHED AND GIVEN IN APPLE JUICE WITHOUT ISSUE. NOW RESTING IN 22H BED, NEAR CHARGE DESK. EDWARD VAZQUEZ (SANDER SETTER) AWARE OF INCIDENT.
--- NOTE | 2020-10-10 04:30 | PC.NURSE ---
PATIENT SLEEPING AT THIS TIME. WILL CONTINUE TO MONITOR.
--- NOTE | 2020-10-10 06:01 | PC.NURSE ---
PATIENT REQUESTED AND GIVEN STEPHON CRACKERS. WILL CONTINUE TO MONITOR.
[2020-10-10 06:19] LABS: Glucose, Whole Blood 241 mg/dL (60-115)
--- NOTE | 2020-10-10 07:21 | PC.NURSE ---
Report received. PT ate breakfast and is now laying in bed. Calm and cooperative. PT waiting to be transferred back to [facility] where she lives.
[2020-10-10 07:34] LABS: Glucose, Whole Blood 348 mg/dL (60-115)
[2020-10-10] MEDS: Insulin Lispro 100 UNIT/ML 3 ML VIAL SUBCUT (07:44)
--- NOTE | 2020-10-10 08:43 | MHC.CM.ED ---
Patient remains in ER. Anticipate patient will return to [facility] on . Continue to monitor for d/c needs.
[2020-10-10 09:24] LABS: Glucose, Whole Blood 317 mg/dL (60-115)
[2020-10-10 09:29] VITALS: BP 116/67; PULSE 90
[2020-10-10] MEDS: Metoprolol Tartrate 25 MG TABLET PO (09:29)
[2020-10-10] MEDS: polyethylene glycoL 3350 17 GM POWD.PACK PO (09:29)
[2020-10-10] MEDS: Insulin Glargine,Hum.rec.anlog 100 UNIT/ML 10 ML VIAL 20 UNIT SUBCUT (09:29)
[2020-10-10] MEDS: risperiDONE 1 MG TABLET PO (09:30)
[2020-10-10] MEDS: Montelukast Sodium 10 MG TABLET PO (09:30)
[2020-10-10] MEDS: Gabapentin 100 MG CAPSULE PO ×2 (09:30→15:28)
[2020-10-10] MEDS: Ammonium Lactate 12 % Cream 140 GM TUBE 1 APPL TOPICAL (10:36)
[2020-10-10] MEDS: Triamcinolone Acet 0.5 % Cream 15 GM TUBE 1 APPL TOPICAL (10:36)
[2020-10-10] MEDS: Fluticasone/Vilanterol 200/25 BLST.W.DEV 1 PUFF INHALE (10:36)
[2020-10-10 11:27] LABS: Glucose, Whole Blood 183 mg/dL (60-115)
[2020-10-10 11:35] VITALS: BP 127/62; PULSE 82; RESP 16; TEMP 37.9; O2SAT 99
--- NOTE | 2020-10-10 15:19 | PC.NURSE ---
Report received form Jose PECK. Patient resting comfortably on stretcher. Calm and cooperative. No complaints at this time. Respirations regular and even. Skin PWD. Will continue to monitor.
[2020-10-10 17:22] VITALS: BP 96/56; PULSE 68; RESP 18; O2SAT 98
--- NOTE | 2020-10-10 17:23 | PC.NURSE ---
PATIENT ASLEEP ON STRETCHER AT THIS TIME. RESPIRATIONS REMAIN REGULAR AND EVEN. SKIN PWD. NO DISTRESS NOTED. WILL CONTINUE TO MONITOR.
[2020-10-10 17:57] LABS: Glucose, Whole Blood 183 mg/dL (60-115)
--- NOTE | 2020-10-10 18:40 | PC.NURSE ---
Patient continues to sleep at this time. POC- 183. Attempted to awake patient for dinner, but patient not interested at this time. Will re-try in a bit. Patient appears comfortable with equal chest rise/fall. Will continue to monitor.
--- NOTE | 2020-10-10 21:10 | PC.NURSE ---
pt is sleeping, dinner try untouched. skin warm and dry.
[2020-10-11 05:53] VITALS: BP 117/59; PULSE 83; RESP 16; TEMP 36.7; O2SAT 98
[2020-10-11 08:44] VITALS: BP 148/79; PULSE 85; RESP 18; TEMP 36.5; O2SAT 96
[2020-10-11] MEDS: Metoprolol Tartrate 25 MG TABLET PO (09:00)
--- NOTE | 2020-10-11 09:07 | MHC.CM.ED ---
Patient remains in ER. [facility] is expected to have a quarentine bed available today. Clinical updates sent via [employer]. Continue to monitor for d/c needs.
[2020-10-11 09:20] LABS: Glucose, Whole Blood 192 mg/dL (60-115)
[2020-10-11] MEDS: Gabapentin 100 MG CAPSULE PO (10:24)
--- NOTE | 2020-10-11 10:31 | PC.NURSE ---
POC 192- pt refusing insulin at this time
--- NOTE | 2020-10-11 11:08 | MHC.CM.ED ---
Received notification from [facility] patient can leave at noon. [facility] booked. Med nec with chart. Patient, brother/HCP Zoya De León and Daquan RN aware. Continue to monitor for d/c needs.
== END 2020-10-11 12:59 | disposition skilled nursing facility (03) ==
PROVIDERS: Emergency Medicine Emergency Medical Services; Physician Assistant; Emergency Provider Internal Medicine
DX: F03.91 Unspecified dementia, unspecified severity, with behavioral disturbance (principal); F17.200 Nicotine dependence, unspecified, uncomplicated; Z71.6 Tobacco abuse counseling; Z79.899 Other long term (current) drug therapy; Z20.828 Contact with and (suspected) exposure to other viral communicable diseases
CPT/HCPCS: 36415; 80048; 80053; 80076; 80307; 81003; 82947; 83735; 85025; 87635; 93005; 94640; 99283; 99285; J2060

== ENCOUNTER 2020-10-15 21:08 | Emergency (ER) | payer MEDICARE, SELFPAY ==
[2020-10-15 21:11] VITALS: BP 142/69; BP 170/84; PULSE 80; PULSE 85; RESP 20; TEMP 36.6; O2SAT 98; BMI 18.1
--- NOTE | 2020-10-15 21:25 | CT_ITS ---
EXAMINATION: CT HEAD WITHOUT CONTRAST CT CERVICAL SPINE WITHOUT CONTRAST CLINICAL INFORMATION: Fall COMPARISON: 11/16/2018 TECHNIQUE: Multidetector CT imaging of the head and cervical spine was performed without the use of intravenous contrast. Multiplanar reformats are reviewed. This CT examination was performed using dose optimization techniques as appropriate, variously including the following: *Automated exposure control *Adjustment of mA and/or kV according to patient size (this includes techniques or standardized protocols for targeted exams where dose is matched to indication/reason for exam; i.e. extremities or head) *Use of iterative reconstruction technique DLP: 976 mGy-cm. FINDINGS: There is no evidence of acute intracranial hemorrhage or territorial infarction. No abnormal mass effect or midline shift is seen. Barnes to white matter differentiation is well preserved. No extra-axial fluid collections are identified. Generalized brain parenchymal volume loss with commensurate prominence of the ventricular system and cortical sulci/fissures. Stable moderate patchy and confluent subcortical and periventricular white matter low-attenuation changes reflective of chronic small vessel ischemic disease. Left frontal and supraorbital soft tissue swelling. Underlying calvarium and skull base intact. Paranasal sinuses and mastoid air cells are clear. Atlantooccipital alignment is maintained. The vertebral bodies and posterior elements align normally. No acute fracture or subluxation. Vertebral body heights are maintained. Small endplate osteophytes present at C5-C6 and C6-C7. No significant central canal or foraminal narrowing. The paraspinal soft tissues are unremarkable. The imaged lung apices are clear CT/CT cervical spine wo con IMPRESSION: No acute intracranial pathology. No cervical spine fracture or malalignment.
--- NOTE | 2020-10-15 21:26 | ED_ITS ---
HPI - Head Injury General Chief complaint: Wound/Laceration Stated complaint: WIT MECH FALL @ SNF W/L EYEBROW LAC Time Seen by Provider: 10/15/20 21:24 Source: patient and EMS Mode of arrival: EMS Limitations: language barrier History of Present Illness HPI Narrative: [facility] after the fall while she was getting up from the bed to bathroom came in with laceration to left eyebrow no loss of consciousness no seizure MD Complaint: head injury Onset (ago): minute(s) Arrival Conditions: C-spine immobilization present Mechanism of Injury: fall Loss of Consciousness: no Location of injury: frontal Severity: mild Other Injuries: none Associated symptoms: denies other symptoms Related Data Home Medications Medication Instructions Recorded Confirmed acetylcysteine 2 cap PO BID 10/03/20 10/03/20 albuterol sulfate 90 mcg INHALATION QID PRN 10/03/20 10/03/20 ammonium lactate 1 appl TOPICAL BID 10/03/20 10/03/20 clonazepam 1 mg PO TID 10/03/20 10/03/20 fluocinonide 1 applic TOPICAL DAILY PRN 10/03/20 10/03/20 fluticasone propion-salmeterol 1 inh INHALATION BID 10/03/20 10/03/20 gabapentin 1 cap PO TID 10/03/20 10/03/20 hydroxyzine HCl 1 tab PO TID PRN 10/03/20 10/03/20 insulin aspart U-100 [Novolog See Rx Instructions .ROUTE .COMPLEX 10/03/20 10/03/20 Flexpen U-100 Insulin] insulin glargine [Lantus Solostar 20 unit SUBCUT BID 10/03/20 10/03/20 U-100 Insulin] metoprolol tartrate 1 tab PO BID 10/03/20 10/03/20 montelukast 1 tab PO DAILY 10/03/20 10/03/20 polyethylene glycol 3350 17 g PO DAILY 10/03/20 10/03/20 risperidone 0.75 mg PO DAILY 10/03/20 10/03/20 risperidone 1 tab PO DAILY 10/03/20 10/03/20 tramadol 1 tab PO BID PRN 10/03/20 10/03/20 triamcinolone acetonide 1 appl TOPICAL DAILY PRN 10/03/20 10/03/20 Allergies Allergy/AdvReac Type Severity Reaction Status Date / Time aspirin [ASA] Allergy Unknown RASH Verified 10/06/20 06:24 niacin [Niacin] Allergy Unknown Rash Verified 10/06/20 06:24 penicillin G [Penicillin G] Allergy Unknown HIVES Verified 10/06/20 06:24 penicillin V Allergy Unknown Hives Verified 10/06/20 06:24 Penicillins Allergy Unknown UNKNOWN Verified 10/06/20 06:24 rofecoxib [From Vioxx] Allergy Unknown UNKNOWN Verified 10/06/20 06:24 Iodinated Contrast Media Allergy Swelling Verified 10/06/20 06:24 [IV Contrast Dye] moxifloxacin AdvReac Nausea Verified 10/06/20 06:24 Review of Systems Constitutional: Constitutional: Reports no additional constitutional complaints Eyes: Eyes: Reports no additional eye complaints ENT: Reports system reviewed and no additional complaints, except as documented Cardiovascular: Cardiovascular: Reports no additional cardiovascular complaints Respiratory: Respiratory: Reports no additional respiratory complaints Gastrointestinal: Gastrointestinal: Reports no additional gastrointestinal complaints Musculoskeletal: Musculoskeletal: Reports no additional musculoskeletal complaints [facility] Past Medical History Medical History Anemia Dementia Diabetes mellitus, type 2 Hypertension Social History Social History Alcohol intake: former Smoking Status: Current some day smoker Advance Directives: No Advance Directives Information Provided: Yes Physical Exam Vital Signs: Vital Signs: Last Vital Signs Temp 97.8 F 10/15/20 21:11 Pulse 85 10/15/20 21:11 Resp 20 10/15/20 21:11 BP 142/69 H 10/15/20 21:11 Pulse Ox 98 10/15/20 21:11 Body Mass Index 18.1 Const: General: cooperative, comfortable, alert and awake Nutritional Appearance: thin Orientation/consciousness: patient oriented x3 HENMT: Head: Yes No palpable skull fracture present, Yes normocephalic and Yes laceration Head images: 1. 4 cm laceration above left eyebrow Ears: hearing grossly normal bilaterally General nose exam: Normal external n ose present Face and sinus: Yes normal facial exam Mouth: Normal oral and palatal mucosa present Throat: Yes posterior oropharynx normal Eyes: General: appearance normal, both eyes and all related structures Neck: Neck: Yes normal visual inspection, Yes trachea midline, Yes supple and No midline deformity Chest: Chest palpation & inspection: normal inspection of the chest and normal palpation of entire chest wall Resp: Effort & Inspection: normal respiratory effort and able to speak in complete sentences Auscultation: clear to auscultation bilaterally Cardio: Palpation: normal PMI Rate: regular rate Rhythm: regular rhythm Heart sounds: S1 normal heart sound present and S2 normal heart sound present GI: Inspection: Yes normal to inspection Palpation (GI): Soft to palpation and nontender Back/Spine/Pelvis: Thoracic/Lumbar Spine: thoracic and lumbar spine normal to inspection Neuro: General: patient oriented x3, moves all extremities and no focal motor deficits Extrem: General: Yes normal to inspection and Yes full ROM Course Course Course Narrative: Patient with minor head injury with laceration to left forehead which was sutured. Patient ambulatory in the ER alert oriented x2 will do the CT scan of the head and C-spine to rule out any internal bleed or fracture Reevaluation(s) Reevaluation #1: CT scan brain and C-spine negative for any acute [facility] Time: 22:46 Procedures Laceration Laceration 1: Site: face Side (If applicable): left Size (cm): 4 Description: linear Depth: simple, single layer Local Anesthetic: lidocaine 2% Amount of anesthesia used (mL): 5 Skin layer closed with: nylon Size (cm): 5-0 Number of sutures: 6 Technique: simple, interrupted MDM - Head Injury Medical Records Attestation: I reviewed the patient's medical records. Imaging Data CT scan - head: Attestation: I personally reviewed and interpreted this imaging study as follows: Radiologist's impression: CT/CT head/brain wo con IMPRESSION: No acute intracranial pathology. No cervical spine fracture or malalignment. Discharge Plan Discharge Prescriptions: No [facility] montelukast 10 mg tablet 1 tab PO DAILY RF: 0 metoprolol tartrate 25 mg tablet 1 tab PO BID RF: 0 acetylcysteine 600 mg capsule 2 cap PO BID RF: 0 clonazepam 0.5 mg tablet 1 mg PO TID RF: 0 risperidone 0.25 mg tablet 0.75 mg PO DAILY RF: 0 gabapentin 100 mg capsule 1 cap PO TID RF: 0 polyethylene glycol 3350 17 gram/dose powder 17 g PO DAILY RF: 0 risperidone 1 mg tablet 1 tab PO DAILY RF: 0 tramadol 50 mg tablet 1 tab PO BID PRN (Reason: Pain) RF: 0 triamcinolone acetonide 0.1 % cream 1 appl topical DAILY PRN (Reason: Itching) RF: 0 fluticasone propion-salmeterol 500-50 mcg/dose blister with device 1 inh inhalation BID RF: 0 hydroxyzine HCl 25 mg tablet 1 tab PO TID PRN (Reason: Itching) RF: 0 ammonium lactate 12 % cream 1 appl topical BID RF: 0 albuterol sulfate 90 mcg/actuation HFA aerosol inhaler 90 mcg inhalation QID PRN (Reason: Dyspnea) RF: 0 fluocinonide 0.05 % cream 1 applic topical DAILY PRN (Reason: Itching) RF: 0 insulin aspart U-100 [Novolog Flexpen U-100 Insulin] 100 unit/mL (3 mL) insulin pen See Rx Instructions .ROUTE .COMPLEX RF: 0 Lantus Solostar U-100 Insulin 100 unit/mL (3 mL) insulin pen 20 unit subcut BID RF: 0
[2020-10-15] MEDS: Lidocaine HCl 2 % MPF 5 ML VIAL INFILTRATI (21:30)
--- NOTE | 2020-10-15 21:49 | PC.NURSE ---
LAC SUTURED BY DR MEMBRENO.
--- NOTE | 2020-10-15 22:48 | PC.NURSE ---
NURSE TO NURSE [place] AT [facility].
== END 2020-10-15 23:46 | disposition skilled nursing facility (03) ==
PROVIDERS: Emergency Provider Internal Medicine
DX: S01.81XA Laceration without foreign body of other part of head, initial encounter (principal); G44.309 Post-traumatic headache, unspecified, not intractable; M54.5 Low back pain; M54.2 Cervicalgia; W01.0XXA Fall on same level from slipping, tripping and stumbling without subsequent striking against object, initial encounter; Y93.9 Activity, unspecified; Y92.003 Bedroom of unspecified non-institutional (private) residence as the place of occurrence of the external cause; Y99.9 Unspecified external cause status; Z79.899 Other long term (current) drug therapy
CPT/HCPCS: 12013; 70450; 72125; 99283; 99284

== ENCOUNTER 2020-10-16 10:12 | Emergency (ER) | payer MEDICARE, SELFPAY ==
[2020-10-16 10:18] VITALS: BP 135/50; PULSE 97; RESP 18; TEMP 36.1; O2SAT 98; BMI 18.8
--- NOTE | 2020-10-16 10:28 | CT_ITS ---
EXAMINATION: CT ORBIT WITHOUT CONTRAST CLINICAL INFORMATION: Trauma. Rule out left orbital fracture COMPARISON: Head CT scan from yesterday TECHNIQUE: Axial images through the orbits without contrast. Sagittal and coronal reconstructions on the technologist workstation were performed. This CT examination was performed using dose optimization techniques as appropriate, variously including the following: *Automated exposure control *Adjustment of mA and/or kV according to patient size (this includes techniques or standardized protocols for targeted exams where dose is matched to indication/reason for exam; i.e. extremities or head) *Use of iterative reconstruction technique DLP: 162 mGy-cm FINDINGS: There is preseptal soft tissue swelling over the left orbit. Post septal orbital soft tissues are normal. No fracture or dislocation is seen. Paranasal sinuses are clear. Mastoid air cells and middle ears are clear. The temporomandibular joints are normal. Soft tissues are otherwise normal. CT/CT orbit BI wo con IMPRESSION: Preseptal soft tissue swelling over the left orbit. No fracture or dislocation seen.
--- NOTE | 2020-10-16 10:32 | ED.EYEPROB ---
HPI - Eye Problem General Chief complaint: Eye Problems Stated complaint: eye swelling Time Seen by Provider: 10/16/20 10:17 Source: EMS Limitations: other (dementia) History of Present Illness HPI Narrative: This is an 80 years old of female from the long-term a week dementia that was seen in the emergency room last night after laceration of the left orbital are the laceration was repaired, CT scan of the head was done which was negative for bleed, today she was sent back to the emergency room because of swelling in the orbital are. There is no known trauma patient is unable to give the history because of the dementia she has history of diabetes. Onset (ago): day(s) (1) Onset description: gradual Duration: constant Location: left eye Place: other (skilled nursing) Mechanism: direct trauma Severity: moderate Related Data Home Medications Medication Instructions Recorded Confirmed acetylcysteine 2 cap PO BID 10/03/20 10/03/20 albuterol sulfate 90 mcg INHALATION QID PRN 10/03/20 10/03/20 ammonium lactate 1 appl TOPICAL BID 10/03/20 10/03/20 clonazepam 1 mg PO TID 10/03/20 10/03/20 fluocinonide 1 applic TOPICAL DAILY PRN 10/03/20 10/03/20 fluticasone propion-salmeterol 1 inh INHALATION BID 10/03/20 10/03/20 gabapentin 1 cap PO TID 10/03/20 10/03/20 hydroxyzine HCl 1 tab PO TID PRN 10/03/20 10/03/20 insulin aspart U-100 [Novolog See Rx Instructions .ROUTE .COMPLEX 10/03/20 10/03/20 Flexpen U-100 Insulin] insulin glargine [Lantus Solostar 20 unit SUBCUT BID 10/03/20 10/03/20 U-100 Insulin] metoprolol tartrate 1 tab PO BID 10/03/20 10/03/20 montelukast 1 tab PO DAILY 10/03/20 10/03/20 polyethylene glycol 3350 17 g PO DAILY 10/03/20 10/03/20 risperidone 0.75 mg PO DAILY 10/03/20 10/03/20 risperidone 1 tab PO DAILY 10/03/20 10/03/20 tramadol 1 tab PO BID PRN 12/22/20 12/22/20 triamcinolone acetonide 1 appl TOPICAL DAILY PRN 10/03/20 10/03/20 Allergies Allergy/AdvReac Type Severity Reaction Status Date / Time aspirin [ASA] Allergy Unknown RASH Verified 10/16/20 10:22 niacin [Niacin] Allergy Unknown Rash Verified 10/16/20 10:22 penicillin G [Penicillin G] Allergy Unknown HIVES Verified 10/16/20 10:22 penicillin V Allergy Unknown Hives Verified 10/16/20 10:22 Penicillins Allergy Unknown UNKNOWN Verified 10/16/20 10:22 rofecoxib [From Vioxx] Allergy Unknown UNKNOWN Verified 10/16/20 10:22 Iodinated Contrast Media Allergy Swelling Verified 10/16/20 10:22 [IV Contrast Dye] moxifloxacin AdvReac Nausea Verified 10/16/20 10:22 Review of Systems Review of Systems: Yes all other systems are reviewed and are negative Respiratory: Respiratory: Reports no additional respiratory complaints, Reports no additional respiratory complaints, Denies chest congestion and Denies cough Gastrointestinal: Gastrointestinal: Denies melena and Denies hematochezia Neurologic: Denies seizure-like activity [facility] Past Medical History Medical History Anemia Dementia Diabetes mellitus, type 2 Hypertension Social History Social History Alcohol intake: former Smoking Status: Current some day smoker Advance Directives: No Advance Directives Information Provided: No Physical Exam Vital Signs: Vital Signs: Last Vital Signs Temp 97.0 F 10/16/20 10:18 Pulse 97 10/16/20 10:18 Resp 18 10/16/20 10:18 BP 135/50 L 10/16/20 10:18 Pulse Ox 98 10/16/20 10:18 Body Mass Index 18.8 Const: Other: She is awake and alert in not acute distress she looks well Eyes: Other: Examination of the left orbit shows an orbital hematoma there is a sutured wound that is healing well, I was able to open the eyelid and visualize the cornea and conjunctiva there is good pupillary reflex patient very uncooperative during the exam a because of the dementia Neck: Neck: Yes normal visual inspection, Yes full ROM and Yes no lymphadenopathy Chest: Chest palpation & inspection: normal inspection of the chest and normal palpation of entire chest wall Resp: Effort & Inspection: normal respiratory effort Cardio: Rate: regular rate Rhythm: regular rhythm GI: Inspection: Yes normal to inspection Palpation (GI): Soft to palpation, nontender, no guarding and not rigid Skin: General skin exam: no rashes or lesions noted Neuro: Other: She is awake and alert I she moves all the extremities Course Course Course Narrative: CT orbit negative ocular pressure 22 MDM - Eye Problem Imaging Data ct orbit: Radiologist's impression: CT orbital no fractures seen Discharge Plan Discharge Clinical Impression: Hematoma of left orbit Patient Disposition: Xfer [facility] Instructions: Hematoma (ED) Prescriptions: No Action montelukast 10 mg tablet 1 tab PO DAILY RF: 0 metoprolol tartrate 25 mg tablet 1 tab PO BID RF: 0 acetylcysteine 600 mg capsule 2 cap PO BID RF: 0 clonazepam 0.5 mg tablet 1 mg PO TID RF: 0 risperidone 0.25 mg tablet 0.75 mg PO DAILY RF: 0 gabapentin 100 mg capsule 1 cap PO TID RF: 0 polyethylene glycol 3350 17 gram/dose powder 17 g PO DAILY RF: 0 risperidone 1 mg tablet 1 tab PO DAILY RF: 0 tramadol 50 mg tablet 1 tab PO BID PRN (Reason: Pain) RF: 0 triamcinolone acetonide 0.1 % cream 1 appl topical DAILY PRN (Reason: Itching) RF: 0 fluticasone propion-salmeterol 500-50 mcg/dose blister with device 1 inh inhalation BID RF: 0 hydroxyzine HCl 25 mg tablet 1 tab PO TID PRN (Reason: Itching) RF: 0 ammonium lactate 12 % cream 1 appl topical BID RF: 0 albuterol sulfate 90 mcg/actuation HFA aerosol inhaler 90 mcg inhalation QID PRN (Reason: Dyspnea) RF: 0 fluocinonide 0.05 % cream 1 applic topical DAILY PRN (Reason: Itching) RF: 0 insulin aspart U-100 [Novolog Flexpen U-100 Insulin] 100 unit/mL (3 mL) insulin pen See Rx Instructions .ROUTE .COMPLEX RF: 0 Lantus Solostar U-100 Insulin 100 unit/mL (3 mL) insulin pen 20 unit subcut BID RF: 0 Referrals: Greg Liz MD [Primary Care Provider] - 2 days Interventions: ED Discharge Assessment Last Done: 10/16/20 12:54 Discharge Date/Time: 10/16/20 12:55
--- NOTE | 2020-10-16 11:50 | PC.NURSE ---
THIS RN ASSISTED PT WITH WALKING TO BATHROOM AND BACK TO BED. PT STEADY GAIT, MOVING ALL EXTREMITIES, SPEAKING IN FULL SENTENCES.
--- NOTE | 2020-10-16 11:58 | PC.NURSE ---
REPORT GIVEN TO STAFF AT [facility]. PT WILL RETURN
== END 2020-10-16 12:55 | disposition skilled nursing facility (03) ==
PROVIDERS: Emergency Provider Emergency Medicine; PCP Family Medicine
DX: H05.232 Hemorrhage of left orbit (principal); E11.9 Type 2 diabetes mellitus without complications; I10 Essential (primary) hypertension; F03.90 Unspecified dementia, unspecified severity, without behavioral disturbance, psychotic disturbance, mood disturbance, and anxiety; Z79.84 Long term (current) use of oral hypoglycemic drugs; F17.200 Nicotine dependence, unspecified, uncomplicated
CPT/HCPCS: 70480; 99283; 99284

== ENCOUNTER 2021-02-25 11:45 | Emergency (ER) | payer MEDICARE, SELFPAY ==
[2021-02-25 11:56] VITALS: BP 120/70; PULSE 70; RESP 16; TEMP 36.4; O2SAT 98; BMI 28.3
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
[2021-02-25 12:18] VITALS: BP 129/62; PULSE 89; RESP 17; O2SAT 96
[2021-02-25 12:40] LABS: MANUAL DIFF FLAG NO
[2021-02-25 12:42] LABS: Basophils Percent Auto 0.3 % (0-2); Eosinophils Absolute Auto 0.1 X10*3/uL (0.0-0.4); Eosinophils Percent Auto 2.2 % (0-4); Hematocrit 34.9 % (37-47); Hemoglobin 11.2 g/dl (12.0-16.0); Imm Gran Abs Auto 0.03 X10*3/uL (0.00-0.03); Imm Gran Pct Auto 0.5 % (0.0-0.4); Lymphocytes Absolute Auto 1.5 X10*3/uL (1.2-4.9); Lymphocytes Percent Auto 23.9 % (20-40); Mean Corpuscular HGB Conc 32.1 g/dl (31.0-35.0); Mean Corpuscular Hemoglobin 27.6 pg (27.0-33.0); Mean Platelet Volume 9.9 fL (9.4-12.3); Monocytes Absolute Auto 0.5 X10*3/uL (0.1-1.2); Monocytes Percent Auto 7.3 % (2-11); Neutrophils Absolute Auto 4.2 X10*3/uL (2.0-8.3); Neutrophils Percent Auto 65.8 % (45-73); Platelet Count 275 X10*3/uL (160-400); Red Blood Count 4.06 X10*6/uL (4.20-5.50); Red Cell Distribution Width 14.2 % (11.0-16.0); White Blood Count 6.4 X10*3/uL (4.8-10.8)
[2021-02-25 12:43] LABS: Glucose Urine UA NEG (NEG); Leukocyte Esterase Urine NEG (NEG); Nitrite Urine NEG (NEG); Specific Gravity - Urine 1.025 (1.005-1.025); Urine Blood NEG (NEG); Urine Ketones NEG (NEG); Urine Protein NEG (NEG-TRACE)
[2021-02-25 12:45] LABS: Appearance Urine CLEAR; Color Urine YELLOW
[2021-02-25 13:06] LABS: Anion Gap 14 (12-20); Blood Urea Nitrogen 21 mg/dL (9-16); Calcium 9.1 mg/dL (8.4-10.2); Carbon Dioxide 26 mmol/L (22-29); Chloride 100 mmol/L (96-108); Creatinine Clr Calc Pharmacy 34.7; Estimated Glomerular Filt Rate 46; Glucose Random 286 mg/dL (60-115); Lipase 27 U/L (8-78); Potassium 4.7 mmol/L (3.3-5.1); Sodium 135 mmol/L (135-145)
== END 2021-02-25 15:04 | disposition skilled nursing facility (03) ==
PROVIDERS: Emergency Provider Emergency Medicine; PCP Family Medicine
DX: F03.91 Unspecified dementia, unspecified severity, with behavioral disturbance (principal); F17.200 Nicotine dependence, unspecified, uncomplicated; I10 Essential (primary) hypertension; E11.9 Type 2 diabetes mellitus without complications; Z79.4 Long term (current) use of insulin; Z71.6 Tobacco abuse counseling; Z79.899 Other long term (current) drug therapy
CPT/HCPCS: 36415; 80048; 81003; 83690; 85025; 99283

== ENCOUNTER 2021-03-04 18:42 | Emergency (ER) | payer MEDICARE, SELFPAY ==
--- NOTE | ~2021-03-04 | CT_ITS ---
EXAMINATION: CT HEAD WITHOUT CONTRAST CLINICAL INFORMATION: Altered mental status. COMPARISON: Portions of a previous study 10/15/20 TECHNIQUE: Multidetector CT examination of the head is performed without contrast. This CT examination was performed using dose optimization techniques as appropriate, variously including the following: *Automated exposure control *Adjustment of mA and/or kV according to patient size (this includes techniques or standardized protocols for targeted exams where dose is matched to indication/reason for exam; i.e. extremities or head) *Use of iterative reconstruction technique DLP: 570 mGy-cm FINDINGS: There is no evidence of a recent intracranial hemorrhage or extra-axial collection. The midline structures are nondisplaced. Prominence of the ventricles, cisterns and sulci greatest involving the frontal and temporal regions but unchanged. There is no evidence of an intra-axial mass. There are no suspicious focal areas of abnormal brain attenuation. The jones-white interface is within normal limits. There is no evidence of acute territorial infarct. Extensive nonspecific white matter low attenuation including in the periventricular areas. This is similar to the previous study. The paranasal sinuses and mastoids are within normal limits. CT/CT head/brain wo con IMPRESSION: 1. There is no evidence of a recent intracranial hemorrhage. 2. No acute infarct. 3. No change in prominence of the sulci in the frontal and temporal regions.
--- NOTE | ~2021-03-04 | CT_ITS ---
EXAMINATION: CT ABDOMEN AND PELVIS WITHOUT CONTRAST CLINICAL INFORMATION: Altered mental status COMPARISON: 10/09/2016 TECHNIQUE: Multidetector volumetric imaging was performed from the superior aspect of the liver through the pubic symphysis. Sagittal and coronal reformatted images were obtained on the technologist's workstation. This CT examination was performed using dose optimization techniques as appropriate, variously including the following: *Automated exposure control *Adjustment of mA and/or kV according to patient size (this includes techniques or standardized protocols for targeted exams where dose is matched to indication/reason for exam; i.e. extremities or head) *Use of iterative reconstruction technique DLP: 339 mGy-cm FINDINGS: Suboptimal assessment due to patient positioning. LUNG BASES: The visualized lung bases demonstrate subsegmental atelectasis. Calcified lymph nodes noted. LIVER, GALLBLADDER, AND BILIARY TREE: The liver is normal in size, shape, and attenuation. No focal hepatic lesion or biliary ductal dilatation is present. Patient is status post cholecystectomy. PANCREAS: There is partial fatty atrophy of the pancreas. SPLEEN: Unremarkable. ADRENAL GLANDS: Unremarkable. KIDNEYS AND URETERS: The kidneys are normal in size, shape, and attenuation. There is an approximately 2 cm mid left renal cyst. No hydronephrosis, hydroureter, or calculi seen. No perinephric stranding. BLADDER: Unremarkable. GASTROINTESTINAL TRACT: Colonic diverticulosis is present. There is a short segment of wall thickening and surrounding stranding in the sigmoid colon of the left pelvis, most suspicious for diverticulitis. No pericolonic abscess or free air is seen. No evidence of bowel obstruction. The appendix is unremarkable. ABDOMINAL WALL: No significant hernia is appreciated. LYMPH NODES: Normal. VASCULAR: Mild scattered atherosclerotic calcification. PELVIC VISCERA: Patient is status post hysterectomy. OSSEOUS STRUCTURES: There is facet arthropathy of the lower lumbar spine. CT/CT abdomen pelvis wo con IMPRESSION: Diverticulitis of the sigmoid colon. No pericolonic abscess or free air identified. Correlation with recent or followup colonoscopy is advised to exclude an underlying mass lesion.
--- NOTE | ~2021-03-04 | XR_ITS ---
EXAMINATION: XR CHEST CLINICAL INFORMATION: Altered mental status. COMPARISON: Chest radiograph 03/21/2019. TECHNIQUE: Frontal view of the chest was obtained. FINDINGS: Cardiac mediastinal silhouette is normal in configuration. No effusions or pneumothoraces are identified. A course horizontally oriented reticular opacity is present in the left lung base. Rounded subcentimeter well-circumscribed nodules are noted peripherally within the right lung base and within the right pulmonary apex unchanged compared with 03/21/2019 suspicious for pulmonary granulomas. Diffuse osteopenia is noted. Partial visualization is made of multilevel anterior endplate osteophytosis of the thoracic spine. Multiple surgical clips are present in the right upper abdominal quadrant, possibly related to prior cholecystectomy. XR/XR chest 1V IMPRESSION: 1. Minimal platelike atelectasis of the left lung base; otherwise, no acute cardiopulmonary abnormalities. 2. Multiple chronic pulmonary granulomas. 3. Moderate aortic calcific atherosclerosis.
--- NOTE | 2021-03-04 18:43 | ECG_ITS ---
Test Reason : WEAKNESS Blood Pressure : / mmHG Vent. Rate : 086 BPM Atrial Rate : 086 BPM P-R Int : 146 ms QRS Dur : 114 ms QT Int : 400 ms P-R-T Axes : 066 037 118 degrees QTc Int : 478 ms Normal sinus rhythm Incomplete left bundle branch block Nonspecific ST and T wave abnormality Prolonged QT Abnormal ECG When compared with ECG of 05-OCT-2020 14:37, Nonspecific T wave abnormality no longer evident in Inferior leads Referred By: Trice Lacy Electronically Signed By:ERWIN RUIZ
--- NOTE | 2021-03-04 18:46 | ED_ITS ---
HPI - Altered Mental Status General Chief Complaint: Weakness Stated Complaint: ams Time Seen by Provider: 03/04/21 18:43 Source: patient and EMS Mode of arrival: EMS Limitations: altered mental status History of Present Illness MD complaint: altered mental status and confusion Onset (ago): day(s) (today) Timing confirmed by: caregiver Severity: mild Consistency of symptoms: constant Context: history of similar presentation Associated symptoms: other (she told staff she couldn't urinate) Related Data Home Medications Medication Instructions Recorded Confirmed acetylcysteine 2 cap PO BID 10/03/20 10/03/20 albuterol sulfate 90 mcg INHALATION QID PRN 10/03/20 10/03/20 ammonium lactate 1 appl TOPICAL BID 10/03/20 10/03/20 clonazepam 1 mg PO TID 10/03/20 10/03/20 fluocinonide 1 applic TOPICAL DAILY PRN 10/03/20 10/03/20 fluticasone propion-salmeterol 1 inh INHALATION BID 10/03/20 10/03/20 gabapentin 1 cap PO TID 10/03/20 10/03/20 hydroxyzine HCl 1 tab PO TID PRN 10/03/20 10/03/20 insulin aspart U-100 [Novolog See Rx Instructions .ROUTE .COMPLEX 10/03/20 10/03/20 Flexpen U-100 Insulin] insulin glargine [Lantus Solostar 20 unit SUBCUT BID 10/03/20 10/03/20 U-100 Insulin] metoprolol tartrate 1 tab PO BID 10/03/20 10/03/20 montelukast 1 tab PO DAILY 10/03/20 10/03/20 polyethylene glycol 3350 17 g PO DAILY 10/03/20 10/03/20 risperidone 0.75 mg PO DAILY 10/03/20 10/03/20 risperidone 1 tab PO DAILY 10/03/20 10/03/20 tramadol 1 tab PO BID PRN 10/03/20 10/03/20 triamcinolone acetonide 1 appl TOPICAL DAILY PRN 10/03/20 10/03/20 Previous Rx's Medication Instructions Recorded levofloxacin 500 mg PO DAILY 7 Days #14 tab 03/04/21 metronidazole [Flagyl] 500 mg PO BID 7 Days #14 tab 03/04/21 Allergies Allergy/AdvReac Type Severity Reaction Status Date / Time aspirin [ASA] Allergy Unknown RASH Verified 10/16/20 10:22 niacin [Niacin] Allergy Unknown Rash Verified 10/16/20 10:22 penicillin G [Penicillin G] Allergy Unknown HIVES Verified 10/16/20 10:22 penicillin V Allergy Unknown Hives Verified 10/16/20 10:22 Penicillins Allergy Unknown UNKNOWN Verified 10/16/20 10:22 rofecoxib [From Vioxx] Allergy Unknown UNKNOWN Verified 10/16/20 10:22 Iodinated Contrast Media Allergy Swelling Verified 10/16/20 10:22 [IV Contrast Dye] moxifloxacin AdvReac Nausea Verified 10/16/20 10:22 Review of Systems Review of Systems: ROS unable to be obtained due to altered mental status [facility] Past Medical History Attestation statement: The following information was validated with the patient. Medical History Anemia Dementia Diabetes mellitus, type 2 Hypertension Social History Social History Alcohol intake: unknown Smoking Status: Unknown if ever smoked Use of substances other than those prescribed or required for medical reasons: Unknown Advance Directives: Yes Advance Directives on File: Yes Advance Directives Date on File: 02/25/21 Physical Exam Vital Signs: Vital Signs: Last Vital Signs Temp 97.3 F 03/04/21 19:28 Pulse 86 03/04/21 19:28 Resp 16 03/04/21 19:28 BP 126/63 03/04/21 19:28 Pulse Ox 98 03/04/21 19:28 Body Mass Index 21.5 Appearance: Alert. Oriented X1. Anxious mild acute distress. Eyes: Pupils equal, round and reactive to light. ENT: Pharynx normal. Neck: Normal inspection. Neck supple. CVS: Normal heart rate and rhythm. Pulses normal. Respiratory: No respiratory distress. Breath sounds normal. Abdomen: Soft and nontender. Skin: Skin warm and dry. Normal skin color. Normal skin turgor. Extremities: No lower extremity edema. No calf ttp Neuro: Oriented X 1. No motor deficit. No sensory deficit. Course Course Course Narrative: no acute findings other than lactic acid, CT scan for occult infection ordered, repeat lactic acid if negative stable for DC back to [facility] lactic acid cleared no wbc count, no vomiting, no fevers, mild diverticulitis MDM - Altered Mental Status MDM Narrative Medical decision making narrative: 80 yo female with anemia, severe dementia diabetes here with 1 day or worsening AMS - will need labs, CXR for pneumonia, UA for UTI, CT head for ICH, dispo per results and findings, Lab Data Result diagrams: 03/04/21 19:11 03/04/21 19:11 Labs: Lab Results 03/04/21 03/04/21 03/04/21 Range/Units 19:11 19:11 19:11 WBC 6.6 (4.8-10.8) X10*3/uL RBC 4.28 (4.20-5.50) X10*6/uL Hgb 11.7 L (12.0-16.0) g/dl Hct 36.7 L (37-47) % MCV 85.7 (80-98) fL MCH 27.3 (27.0-33.0) pg MCHC 31.9 (31.0-35.0) g/dl RDW 14.0 (11.0-16.0) % Plt Count 305 (160-400) X10*3/uL MPV 9.8 (9.4-12.3) fL Immature Gran % (Auto) 0.3 (0.0-0.4) % Neut % (Auto) 65.2 (45-73) % Lymph % (Auto) 21.9 (20-40) % [place] % (Auto) 11.5 H (2-11) % Eos % (Auto) 0.8 (0-4) % Baso % (Auto) 0.3 (0-2) % Lymph # (Auto) 1.5 (1.2-4.9) X10*3/uL [place] # (Auto) 0.8 (0.1-1.2) X10*3/uL Eos # (Auto) 0.1 (0.0-0.4) X10*3/uL Baso # (Auto) 0.0 (0.0-0.2) X10*3/uL Abs Immat Gran (auto) 0.02 (0.00-0.03) X10*3/uL Absolute Neuts (auto) 4.3 (2.0-8.3) X10*3/uL Absolute Nucleated RBC 0.000 (0.0-0.012) X10*3/uL Nucleated RBC % (auto) 0.0 (0.0-0.2) /100WBC Hold Blue Top SEE NOTE VBG pH (7.32-7.43) VBG pCO2 mmHg VBG pO2 mmHg VBG HCO3 (22-26) mmol/L VBG O2 Saturation % VBG Base Excess mmol/L Sodium 139 (135-145) mmol/L Potassium 4.5 (3.3-5.1) mmol/L Chloride 100 (96-108) mmol/L Carbon Dioxide 26 (22-29) mmol/L Anion Gap 18 (12-20) BUN 30 H (9-16) mg/dL Creatinine 1.34 (0.5-1.4) mg/dL Estim Creat Clear Calc 24.0 Estimated GFR 38 Random Glucose 195 H (60-115) mg/dL Lactic Acid (0.5-2.0) mmol/L Lactic Acid Fup @ 2Hr (0.5-2.0) mmol/L Calcium 9.8 D (8.4-10.2) mg/dL Magnesium (1.6-2.6) mg/dL Total Bilirubin 0.6 (0.0-1.0) mg/dL Direct Bilirubin < 0.2 (0.0-0.5) mg/dL AST 23 (5-31) U/L ALT 22 (0-31) U/L Alkaline Phosphatase 67 (39-117) U/L Ammonia (13-55) umol/L Troponin I High Sens (<3.5-17.0) ng/L Total Protein 7.6 (6.5-8.0) g/dL Albumin 4.1 (3.5-5.0) g/dL Lipase 10 (8-78) U/L TSH (0.32-4.0) uIU/mL Urine Color Urine Appearance Urine pH (5.0-8.0) Ur Specific Pierson (1.005-1.025) Urine Protein (NEG-TRACE) MG/DL Urine Glucose (UA) (NEG) MG/DL Urine Ketones (NEG) MG/DL Urine Blood (NEG) Urine Nitrite (NEG) Ur Leukocyte Esterase (NEG) Urine RBC (0) /HPF Urine WBC (0-4) /HPF Ur Squamous Epith Cells /LPF Uric Acid Crystals /LPF Urine Bacteria /LPF Hyaline Casts /LPF Urine Mucus /LPF COVID-19 (CARMEN) (Negative) COVID-19 Clin Com 03/04/21 03/04/21 03/04/21 Range/Units 19:11 19:11 19:11 WBC (4.8-10.8) X10*3/uL RBC (4.20-5.50) X10*6/uL Hgb (12.0-16.0) g/dl Hct (37-47) % MCV (80-98) fL MCH (27.0-33.0) pg MCHC (31.0-35.0) g/dl RDW (11.0-16.0) % Plt Count (160-400) X10*3/uL MPV (9.4-12.3) fL Immature Gran % (Auto) (0.0-0.4) % Neut % (Auto) (45-73) % Lymph % (Auto) (20-40) % [place] % (Auto) (2-11) % Eos % (Auto) (0-4) % Baso % (Auto) (0-2) % Lymph # (Auto) (1.2-4.9) X10*3/uL [place] # (Auto) (0.1-1.2) X10*3/uL Eos # (Auto) (0.0-0.4) X10*3/uL Baso # (Auto) (0.0-0.2) X10*3/uL Abs Immat Gran (auto) (0.00-0.03) X10*3/uL Absolute Neuts (auto) (2.0-8.3) X10*3/uL Absolute Nucleated RBC (0.0-0.012) X10*3/uL Nucleated RBC % (auto) (0.0-0.2) /100WBC Hold Blue Top VBG pH (7.32-7.43) VBG pCO2 mmHg VBG pO2 mmHg VBG HCO3 (22-26) mmol/L VBG O2 Saturation % VBG Base Excess mmol/L Sodium (135-145) mmol/L Potassium (3.3-5.1) mmol/L Chloride (96-108) mmol/L Carbon Dioxide (22-29) mmol/L Anion Gap (12-20) BUN (9-16) mg/dL Creatinine (0.5-1.4) mg/dL Estim Creat Clear Calc Estimated GFR Random Glucose (60-115) mg/dL Lactic Acid 2.8 H* (0.5-2.0) mmol/L Lactic Acid Fup @ 2Hr (0.5-2.0) mmol/L Calcium (8.4-10.2) mg/dL Magnesium (1.6-2.6) mg/dL Total Bilirubin (0.0-1.0) mg/dL Direct Bilirubin (0.0-0.5) mg/dL AST (5-31) U/L ALT (0-31) U/L Alkaline Phosphatase (39-117) U/L Ammonia 28 (13-55) umol/L Troponin I High Sens (<3.5-17.0) ng/L Total Protein (6.5-8.0) g/dL Albumin (3.5-5.0) g/dL Lipase (8-78) U/L TSH (0.32-4.0) uIU/mL Urine Color Urine Appearance Urine pH (5.0-8.0) Ur Specific Pierson (1.005-1.025) Urine Protein (NEG-TRACE) MG/DL Urine Glucose (UA) (NEG) MG/DL Urine Ketones (NEG) MG/DL Urine Blood (NEG) Urine Nitrite (NEG) Ur Leukocyte Esterase (NEG) Urine RBC (0) /HPF Urine WBC (0-4) /HPF Ur Squamous Epith Cells /LPF Uric Acid Crystals /LPF Urine Bacteria /LPF Hyaline Casts /LPF Urine Mucus /LPF COVID-19 (CARMEN) Negative (Negative) COVID-19 Clin Com See Note 03/04/21 03/04/21 03/04/21 Range/Units 19:11 19:11 19:18 WBC (4.8-10.8) X10*3/uL RBC (4.20-5.50) X10*6/uL Hgb (12.0-16.0) g/dl Hct (37-47) % MCV (80-98) fL MCH (27.0-33.0) pg MCHC (31.0-35.0) g/dl RDW (11.0-16.0) % Plt Count (160-400) X10*3/uL MPV (9.4-12.3) fL Immature Gran % (Auto) (0.0-0.4) % Neut % (Auto) (45-73) % Lymph % (Auto) (20-40) % [place] % (Auto) (2-11) % Eos % (Auto) (0-4) % Baso % (Auto) (0-2) % Lymph # (Auto) (1.2-4.9) X10*3/uL [place] # (Auto) (0.1-1.2) X10*3/uL Eos # (Auto) (0.0-0.4) X10*3/uL Baso # (Auto) (0.0-0.2) X10*3/uL Abs Immat Gran (auto) (0.00-0.03) X10*3/uL Absolute Neuts (auto) (2.0-8.3) X10*3/uL Absolute Nucleated RBC (0.0-0.012) X10*3/uL Nucleated RBC % (auto) (0.0-0.2) /100WBC Hold Blue Top VBG pH 7.36 (7.32-7.43) VBG pCO2 51 mmHg VBG pO2 43 mmHg VBG HCO3 29 H (22-26) mmol/L VBG O2 Saturation 66.0 % VBG Base Excess 3.2 mmol/L Sodium (135-145) mmol/L Potassium (3.3-5.1) mmol/L Chloride (96-108) mmol/L Carbon Dioxide (22-29) mmol/L Anion Gap (12-20) BUN (9-16) mg/dL Creatinine (0.5-1.4) mg/dL Estim Creat Clear Calc Estimated GFR Random Glucose (60-115) mg/dL Lactic Acid (0.5-2.0) mmol/L Lactic Acid Fup @ 2Hr (0.5-2.0) mmol/L Calcium (8.4-10.2) mg/dL Magnesium 1.9 (1.6-2.6) mg/dL Total Bilirubin (0.0-1.0) mg/dL Direct Bilirubin (0.0-0.5) mg/dL AST (5-31) U/L ALT (0-31) U/L Alkaline Phosphatase (39-117) U/L Ammonia (13-55) umol/L Troponin I High Sens 6.9 (<3.5-17.0) ng/L Total Protein (6.5-8.0) g/dL Albumin (3.5-5.0) g/dL Lipase (8-78) U/L TSH 1.43 (0.32-4.0) uIU/mL Urine Color Urine Appearance Urine pH (5.0-8.0) Ur Specific Pierson (1.005-1.025) Urine Protein (NEG-TRACE) MG/DL Urine Glucose (UA) (NEG) MG/DL Urine Ketones (NEG) MG/DL Urine Blood (NEG) Urine Nitrite (NEG) Ur Leukocyte Esterase (NEG) Urine RBC (0) /HPF Urine WBC (0-4) /HPF Ur Squamous Epith Cells /LPF Uric Acid Crystals /LPF Urine Bacteria /LPF Hyaline Casts /LPF Urine Mucus /LPF COVID-19 (CARMEN) (Negative) COVID-19 Clin Com 03/04/21 03/04/21 Range/Units 19:57 22:56 WBC (4.8-10.8) X10*3/uL RBC (4.20-5.50) X10*6/uL Hgb (12.0-16.0) g/dl Hct (37-47) % MCV (80-98) fL MCH (27.0-33.0) pg MCHC (31.0-35.0) g/dl RDW (11.0-16.0) % Plt Count (160-400) X10*3/uL MPV (9.4-12.3) fL Immature Gran % (Auto) (0.0-0.4) % Neut % (Auto) (45-73) % Lymph % (Auto) (20-40) % [place] % (Auto) (2-11) % Eos % (Auto) (0-4) % Baso % (Auto) (0-2) % Lymph # (Auto) (1.2-4.9) X10*3/uL [place] # (Auto) (0.1-1.2) X10*3/uL Eos # (Auto) (0.0-0.4) X10*3/uL Baso # (Auto) (0.0-0.2) X10*3/uL Abs Immat Gran (auto) (0.00-0.03) X10*3/uL Absolute Neuts (auto) (2.0-8.3) X10*3/uL Absolute Nucleated RBC (0.0-0.012) X10*3/uL Nucleated RBC % (auto) (0.0-0.2) /100WBC Hold Blue Top VBG pH (7.32-7.43) VBG pCO2 mmHg VBG pO2 mmHg VBG HCO3 (22-26) mmol/L VBG O2 Saturation % VBG Base Excess mmol/L Sodium (135-145) mmol/L Potassium (3.3-5.1) mmol/L Chloride (96-108) mmol/L Carbon Dioxide (22-29) mmol/L Anion Gap (12-20) BUN (9-16) mg/dL Creatinine (0.5-1.4) mg/dL Estim Creat Clear Calc Estimated GFR Random Glucose (60-115) mg/dL Lactic Acid (0.5-2.0) mmol/L Lactic Acid Fup @ 2Hr 1.8 (0.5-2.0) mmol/L Calcium (8.4-10.2) mg/dL Magnesium (1.6-2.6) mg/dL Total Bilirubin (0.0-1.0) mg/dL Direct Bilirubin (0.0-0.5) mg/dL AST (5-31) U/L ALT (0-31) U/L Alkaline Phosphatase (39-117) U/L Ammonia (13-55) umol/L Troponin I High Sens (<3.5-17.0) ng/L Total Protein (6.5-8.0) g/dL Albumin (3.5-5.0) g/dL Lipase (8-78) U/L TSH (0.32-4.0) uIU/mL Urine Color YELLOW Urine Appearance CLEAR Urine pH 6.0 (5.0-8.0) Ur Specific Pierson 1.025 (1.005-1.025) Urine Protein 2+ H (NEG-TRACE) MG/DL Urine Glucose (UA) NEG (NEG) MG/DL Urine Ketones 5 (NEG) MG/DL Urine Blood NEG (NEG) Urine Nitrite NEG (NEG) Ur Leukocyte Esterase NEG (NEG) Urine RBC 0-2 (0) /HPF Urine WBC 1-4 (0-4) /HPF Ur Squamous Epith Cells 3+ /LPF Uric Acid Crystals TRACE /LPF Urine Bacteria TRACE /LPF Hyaline Casts 5-9 /LPF Urine Mucus 3+ /LPF COVID-19 ([facility]EN) (Negative) COVID-19 Clin Com ECG Data ECG #1: Attestation: I personally reviewed and interpreted this ECG as follows: ECG interpretation date: 03/04/21 ECG interpretation time: 19:38 Interpretation: Rate: 86 Rhythm: NSR Cuero: normal Normal P waves. Normal KAMARI. LBBB ST T wave : inverted I and aVL, no DANIEL qTC: normal prior studies: no change sep 2020 The study has been interpreted contemporaneously by me. . Discharge Plan Discharge Clinical Impression: Diverticulitis Dementia Qualifiers: Dementia type: unspecified type Dementia behavioral disturbance: with behavioral disturbance Qualified Code(s): F03.91 - Unspecified dementia with behavioral disturbance Patient Disposition: er SNF Instructions: Dementia (ED) Additional Instructions: CXR labs, EKG, UA CT head negative CT of abdomen: Colonic diverticulosis is present. There is a short segment of wall thickening and surrounding stranding in the sigmoid colon of the left pelvis, most suspicious for diverticulitis. No pericolonic abscess or free air is seen. No evidence of bowel obstruction. The appendix is unremarkable. Prescriptions: New metronidazole [Flagyl] 500 mg tablet 500 mg PO BID 7 Days Qty: 14 RF: 0 levofloxacin 250 mg tablet 500 mg PO DAILY 7 Days Qty: 14 RF: 0 No Action montelukast 10 mg tablet 1 tab PO DAILY RF: 0 metoprolol tartrate 25 mg tablet 1 tab PO BID RF: 0 acetylcysteine 600 mg capsule 2 cap PO BID RF: 0 clonazepam 0.5 mg tablet 1 mg PO TID RF: 0 risperidone 0.25 mg tablet 0.75 mg PO DAILY RF: 0 gabapentin 100 mg capsule 1 cap PO TID RF: 0 polyethylene glycol 3350 17 gram/dose powder 17 g PO DAILY RF: 0 risperidone 1 mg tablet 1 tab PO DAILY RF: 0 tramadol 50 mg tablet 1 tab PO BID PRN (Reason: Pain) RF: 0 triamcinolone acetonide 0.1 % cream 1 appl topical DAILY PRN (Reason: Itching) RF: 0 fluticasone propion-salmeterol 500-50 mcg/dose blister with device 1 inh inhalation BID RF: 0 hydroxyzine HCl 25 mg tablet 1 tab PO TID PRN (Reason: Itching) RF: 0 ammonium lactate 12 % cream 1 appl topical BID RF: 0 albuterol sulfate 90 mcg/actuation HFA aerosol inhaler 90 mcg inhalation QID PRN (Reason: Dyspnea) RF: 0 fluocinonide 0.05 % cream 1 applic topical DAILY PRN (Reason: Itching) RF: 0 insulin aspart U-100 [Novolog Flexpen U-100 Insulin] 100 unit/mL (3 mL) insulin pen See Rx Instructions .ROUTE .COMPLEX RF: 0 Lantus Solostar U-100 Insulin 100 unit/mL (3 mL) insulin pen 20 unit subcut BID RF: 0 Referrals: Physician,Unknown [Primary Care Provider] - 2 days (if not better)
[2021-03-04 18:49] VITALS: BMI 21.5
[2021-03-04 19:27] LABS: VBG Base Excess 3.2 mmol/L; VBG HCO3 29 mmol/L (22-26); VBG pCO2 51 mmHg; VBG pH 7.36 (7.32-7.43); VBG pO2 43 mmHg
[2021-03-04 19:28] VITALS: BP 126/63; PULSE 86; RESP 16; TEMP 36.3; O2SAT 98
[2021-03-04 19:28] LABS: MANUAL DIFF FLAG NO
[2021-03-04 19:29] LABS: Venous Blood Gas Refer to POC result
[2021-03-04 19:30] LABS: Basophils Percent Auto 0.3 % (0-2); Eosinophils Absolute Auto 0.1 X10*3/uL (0.0-0.4); Eosinophils Percent Auto 0.8 % (0-4); Hematocrit 36.7 % (37-47); Hemoglobin 11.7 g/dl (12.0-16.0); Imm Gran Abs Auto 0.02 X10*3/uL (0.00-0.03); Imm Gran Pct Auto 0.3 % (0.0-0.4); Lymphocytes Absolute Auto 1.5 X10*3/uL (1.2-4.9); Lymphocytes Percent Auto 21.9 % (20-40); Mean Corpuscular HGB Conc 31.9 g/dl (31.0-35.0); Mean Corpuscular Hemoglobin 27.3 pg (27.0-33.0); Mean Corpuscular Volume 85.7 fL (80-98); Mean Platelet Volume 9.8 fL (9.4-12.3); Monocytes Absolute Auto 0.8 X10*3/uL (0.1-1.2); Monocytes Percent Auto 11.5 % (2-11); Neutrophils Absolute Auto 4.3 X10*3/uL (2.0-8.3); Neutrophils Percent Auto 65.2 % (45-73); Platelet Count 305 X10*3/uL (160-400); Red Blood Count 4.28 X10*6/uL (4.20-5.50); White Blood Count 6.6 X10*3/uL (4.8-10.8)
[2021-03-04 19:42] LABS: Ammonia 28 umol/L (13-55)
[2021-03-04 19:53] LABS: Lactic Acid 2.8 mmol/L (0.5-2.0)
[2021-03-04 20:01] LABS: Alanine Aminotransferase 22 U/L (0-31); Albumin Level 4.1 g/dL (3.5-5.0); Alkaline Phosphatase 67 U/L (39-117); Anion Gap 18 (12-20); Aspartate Amino Transferase 23 U/L (5-31); Bilirubin Direct < 0.2 mg/dL (0.0-0.5); Bilirubin Total 0.6 mg/dL (0.0-1.0); Blood Urea Nitrogen 30 mg/dL (9-16); Calcium 9.8 mg/dL (8.4-10.2); Carbon Dioxide 26 mmol/L (22-29); Chloride 100 mmol/L (96-108); Estimated Glomerular Filt Rate 38; Glucose Random 195 mg/dL (60-115); Lipase 10 U/L (8-78); Potassium 4.5 mmol/L (3.3-5.1); Sodium 139 mmol/L (135-145); Total Protein 7.6 g/dL (6.5-8.0)
[2021-03-04 20:02] LABS: Magnesium 1.9 mg/dL (1.6-2.6)
[2021-03-04 20:05] LABS: Troponin-I High Sensitivity 6.9 ng/L (<3.5-17.0)
[2021-03-04 20:12] LABS: Glucose Urine UA NEG (NEG); Leukocyte Esterase Urine NEG (NEG); Nitrite Urine NEG (NEG); Specific Gravity - Urine 1.025 (1.005-1.025); Urine Blood NEG (NEG); Urine Ketones 5 MG/DL (NEG); Urine Protein 2+ MG/DL (NEG-TRACE)
[2021-03-04 20:16] LABS: Appearance Urine CLEAR; Color Urine YELLOW
[2021-03-04 20:21] LABS: COVID-19 Test Negative (Negative); IDNOW Serial# 08D9AD1C
[2021-03-04 20:22] LABS: RBC Urine 0-2 /HPF (0); Squamous Epithelial Cell Urine 3+ /LPF
[2021-03-04 20:23] LABS: Thyroid Stimulating Hormone 1.43 uIU/mL (0.32-4.0)
[2021-03-04 20:23] LABS: Bacteria Urine TRACE /LPF; Mucus Urine 3+ /LPF
[2021-03-04 20:24] LABS: Uric Acid Crystals Urine TRACE /LPF
[2021-03-04 21:19] LABS: Reflex Lactate? Lactic Acid Added
[2021-03-04 23:29] LABS: ~Lactic Acid-LAB USE ONLY 1.8 mmol/L (0.5-2.0)
[2021-03-04] MEDS: metroNIDAZOLE 500 MG TABLET PO (23:57)
[2021-03-04] MEDS: levoFLOXacin/D5W 250 MG/50 ML PIGGYBACK 50 MG IV (23:57)
--- NOTE | 2021-03-05 00:58 | PC.NURSE ---
PT REFUSING TO TAKE ANTIBIOTIC, THREW IT ACROSS THE ER, ATTEMPTED TO PUNCH/BITE RN FOR GIVING IT TO HER.
== END 2021-03-05 01:18 | disposition skilled nursing facility (03) ==
PROVIDERS: Emergency Provider Emergency Medicine
DX: K57.32 Diverticulitis of large intestine without perforation or abscess without bleeding (principal); F03.91 Unspecified dementia, unspecified severity, with behavioral disturbance; R41.82 Altered mental status, unspecified; Z79.899 Other long term (current) drug therapy; Z20.822 Contact with and (suspected) exposure to COVID-19
CPT/HCPCS: 36415; 70450; 71045; 74176; 80048; 80076; 81001; 82140; 83605; 83690; 83735; 84443; 84484; 85025; 87040; 87076; 87185; 87205; 87635; 93005; 96360; 99284; J1956

== ENCOUNTER 2021-07-31 14:55 | Emergency (ER) | payer MEDICARE, SELFPAY ==
--- NOTE | ~2021-07-31 | CT_ITS ---
EXAMINATION: HEAD CT WITHOUT CONTRAST CERVICAL SPINE CT WITHOUT CONTRAST CLINICAL INFORMATION: Facial laceration. Fall. Dementia. COMPARISON: 03/04/2021 TECHNIQUE: Contiguous axial imaging of the head was performed without the administration of IV contrast. Axial multidetector volumetric images were also performed through the cervical spine without intravenous contrast. Multiplanar reconstructed images in coronal and sagittal orientations were submitted. Images of the cervical spine are somewhat limited by motion artifact. This CT examination was performed using dose optimization techniques as appropriate, variously including the following: *Automated exposure control *Adjustment of mA and/or kV according to patient size (this includes techniques or standardized protocols for targeted exams where dose is matched to indication/reason for exam; i.e. extremities or head) *Use of iterative reconstruction technique DOSE: 1103 mGy-cm FINDINGS: HEAD: There is no evidence of acute intracranial hemorrhage or territorial infarction. No abnormal mass-effect or midline shift. No extra-axial fluid collections. Barnes to white matter differentiation is well preserved. Moderate enlargement of the ventricles, sulci, and extra-axial CSF spaces is indicative of parenchymal volume loss. Multiple areas of hypoattenuation in the subcortical and periventricular white matter are most consistent with chronic microangiopathic changes. Globes are aphakic. Mild right periorbital soft tissue swelling. No fractures. The sinuses and mastoid air cells are clear. CERVICAL SPINE: Motion artifact does limit sensitivity for subtle nondisplaced fractures in the cervical spine at the level of C5 and C6. Vertebral body heights are normal. No fractures of the vertebral bodies or posterior elements. Vertebral alignment is normal. No subluxation. Degenerative osteophytes and sclerosis are present at the atlantodental articulation addition to a small fragmented osteophyte. Atlantooccipital articulation is normal. There is mild degenerative disc disease in the lower cervical spine C5-C6 and C6-C7, characterized primarily by uncovertebral osteophytes. Mild multilevel facet arthropathy. Mild central canal narrowing is produced at the C5-C6 level by posterior disc osteophytic protrusion. Uncovertebral osteophytes produce bilateral neural foraminal encroachment at C5-C6 and C6-C7. No significant paravertebral soft tissue swelling. Cervical soft tissues are unremarkable. Imaged portions of the lung apices are clear. CT/CT cervical spine wo con IMPRESSION: 1. No acute intracranial pathology. Moderate cerebral atrophy and chronic white matter disease. 2. No acute fracture or malalignment in the cervical spine.
--- NOTE | ~2021-07-31 | XR_ITS ---
EXAMINATION: XR CHEST CLINICAL INFORMATION: Fever. COMPARISON: 03/04/2021 TECHNIQUE: Frontal view of the chest was obtained. FINDINGS: Low lung volumes. Mild bibasilar atelectasis. Perihilar bronchial wall thickening is noted bilaterally. No consolidation, pneumothorax, or pleural effusion. Multiple calcified pulmonary granulomas. Calcific atherosclerosis is present in the thoracic aorta. Heart and mediastinal contours are normal. No acute osseous findings. Cholecystectomy clips are present in the right upper quadrant. XR/XR chest 1V IMPRESSION: Bronchial wall thickening can be seen with a small airways process such as asthma or atypical/viral infection.
--- NOTE | ~2021-07-31 | CT_ITS ---
EXAM: NONCONTRAST CT OF THE CHEST; NONCONTRAST CT OF THE ABDOMEN AND PELVIS INDICATION: Fever, dementia, rule out infectious process COMPARISON: 03/04/2021, 04/16/2018 TECHNIQUE: No IV contrast was utilized. Multidetector helical imaging was performed through the chest, abdomen, and pelvis. Coronal and sagittal reformatted images were created at the technologist workstation. DOSE LOWERING TECHNIQUES: This CT examination was performed using dose optimization techniques as appropriate, variously including the following: - Automated exposure control - Adjustment of mA and/or kV according to patient size (this includes techniques or standardized protocols for targeted exams were dose is matched to indication/reason for exam; i.e. extremities or head) - Use of iterative reconstruction technique DLP: 724 mGy-cm FINDINGS: Chest: Scattered calcified granulomas noted. No regions of consolidation bilaterally. A few curvilinear bilateral opacities favor atelectasis or scarring. Redemonstrated tiny biapical lung nodules appear similar to prior study of 04/16/2018, favoring a benign etiology. No pneumothorax or pleural effusion. The visualized thyroid gland is unremarkable. Calcified mediastinal and right hilar lymph nodes are consistent with prior granulomatous disease. No discrete adenopathy is seen. Cardiac size is within normal limits; no pericardial effusion. Coronary artery calcifications are present. Thoracic aorta appears normal in caliber. No axillary lymphadenopathy is present. Abdomen/Pelvis: The liver is homogeneous in attenuation without intrahepatic biliary ductal dilatation. Status post cholecystectomy. There is partial fatty atrophy of the pancreas. The spleen and adrenal glands appear unremarkable. No hydronephrosis. No renal or ureteral calculi are present. Redemonstrated mid left renal cyst; no follow-up recommended. The urinary bladder is distended without wall thickening. Patient appears status post hysterectomy. Colonic diverticulosis is noted. The small and large bowel are otherwise unremarkable without evidence of obstruction or pericolonic inflammatory change. The appendix is unremarkable. No free fluid or free air is present. Scattered atherosclerotic calcifications are noted. No retroperitoneal or pelvic lymphadenopathy is seen. Degenerative changes are noted in the spine, including facet arthropathy of the lower lumbar spine. CT/CT abdomen pelvis wo con IMPRESSION: 1. No acute findings identified, though assessment is somewhat suboptimal without intravenous contrast. 2. Colonic diverticulosis without diverticulitis. 3. Evidence of prior granulomatous disease in the chest.
[2021-07-31 15:09] VITALS: PULSE 72
[2021-07-31] MEDS: Diphth,Pertus(ACell),Tet Adult 0.5 ML SYRINGE IM (15:37)
--- NOTE | 2021-07-31 15:42 | ED_ITS ---
HPI - Fall General Chief Complaint: Fall <RAFIA Sears - Last Filed: 08/01/21 00:32> Stated Complaint: FALL W/FACIAL LACS <RAFIA Sears - Last Filed: 08/01/21 00:32> Time Seen by Provider: 07/31/21 15:06 <RAFIA Sears - Last Filed: 08/01/21 00:32> Source: patient <RAFIA Sears - Last Filed: 08/01/21 00:32> Mode of arrival: ambulatory <RAFIA Sears - Last Filed: 08/01/21 00:32> History of Present Illness HPI Narrative: 81-year-old female with a past medical history of anemia, diabetes, HTN, dementia, coming from [facility] for mechanical fall and right sided facial laceration [employer]. No reported LOC, Patient is not on anticoagulation. Reportedly patient at baseline. Tetanus unknown History limited secondary to patient's baseline dementia <RAFIA Sears Last Filed: 08/01/21 00:32> MD complaint: fall <RAFIA Sears Last Filed: 08/01/21 00:32> Related Data Home Medications: Home Medications Medication Instructions Recorded Confirmed acetylcysteine 600 mg capsule 2 cap PO BID 10/03/20 10/03/20 albuterol sulfate 90 mcg/actuation 90 mcg INHALATION QID PRN 10/03/20 10/03/20 aerosol inhaler ammonium lactate 12 % topical cream 1 appl TOPICAL BID 10/03/20 10/03/20 clonazepam 0.5 mg tablet 1 mg PO TID 10/03/20 10/03/20 fluocinonide 0.05 % topical cream 1 applic TOPICAL DAILY PRN 10/03/20 10/03/20 fluticasone 500 mcg-salmeterol 50 1 inh INHALATION BID 10/03/20 10/03/20 mcg/dose blistr powdr for inhalation gabapentin 100 mg capsule 1 cap PO TID 10/03/20 10/03/20 hydroxyzine HCl 25 mg tablet 1 tab PO TID PRN 10/03/20 10/03/20 insulin aspart U-100 100 unit/mL See Rx Instructions .ROUTE .COMPLEX 10/03/20 10/03/20 (3 mL) subcutaneous pen (Novolog Flexpen U-100 Insulin aspart) insulin glargine 100 unit/mL (3 20 unit SUBCUT BID 10/03/20 10/03/20 mL) subcutaneous pen (Lantus Solostar U-100 Insulin) metoprolol tartrate 25 mg tablet 1 tab PO BID 10/03/20 10/03/20 montelukast 10 mg tablet 1 tab PO DAILY 10/03/20 10/03/20 polyethylene glycol 3350 17 17 g PO DAILY 10/03/20 10/03/20 gram/dose oral powder risperidone 0.25 mg tablet 0.75 mg PO DAILY 10/03/20 10/03/20 risperidone 1 mg tablet 1 tab PO DAILY 10/03/20 10/03/20 tramadol 50 mg tablet 1 tab PO BID PRN 10/03/20 10/03/20 triamcinolone acetonide 0.1 % 1 appl TOPICAL DAILY PRN 10/03/20 10/03/20 topical cream Previous Rx's Medication Instructions Recorded levofloxacin 250 mg tablet 500 mg PO DAILY 7 Days #14 tab 03/04/21 metronidazole 500 mg tablet 500 mg PO BID 7 Days #14 tab 03/04/21 (Flagyl) <RAFIA Sears - Last Filed: 08/01/21 00:32> Allergies/Adverse Reactions: Allergies Allergy/AdvReac Type Severity Reaction Status Date / Time aspirin [ASA] Allergy Unknown RASH Verified 10/16/20 10:22 niacin [Niacin] Allergy Unknown Rash Verified 10/16/20 10:22 penicillin G [Penicillin G] Allergy Unknown HIVES Verified 10/16/20 10:22 penicillin V Allergy Unknown Hives Verified 10/16/20 10:22 Penicillins Allergy Unknown UNKNOWN Verified 10/16/20 10:22 rofecoxib [From Vioxx] Allergy Unknown UNKNOWN Verified 10/16/20 10:22 Iodinated Contrast Media Allergy Swelling Verified 10/16/20 10:22 [IV Contrast Dye] moxifloxacin AdvReac Nausea Verified 10/16/20 10:22 <RAFIA Sears - Last Filed: 08/01/21 00:32> Review of Systems Review of Systems: Constitutional: No Fever Eyes: + Swelling Skin: + Skin Lesions, No rash Neuro: No Loss of Consciousness, + Headache History limited secondary to patient's baseline dementia <RAFIA Sears - Last Filed: 08/01/21 00:32> Yes all other systems are reviewed and are negative <RAFIA Sears - Last Filed: 08/01/21 00:32> [facility] Past Medical History Attestation statement: The following information was validated with the patient. <RAFIA Sears - Last Filed: 08/01/21 00:32> Medical History: Medical History Anemia Dementia Diabetes mellitus, type 2 Hypertension <RAFIA Sears - Last Filed: 08/01/21 00:32> Social History Social History: Social History Alcohol intake: unknown Advance Directives: Yes Advance Directives on File: Yes Advance Directives Date on File: 02/25/21 <RAFIA Sears - Last Filed: 08/01/21 00:32> Physical Exam Vital Signs: Vital Signs: Last Vital Signs Temp 98.4 F 07/31/21 22:00 Pulse 110 H 08/01/21 02:11 Resp 16 07/31/21 22:00 BP 145/68 H 08/01/21 02:11 Pulse Ox 97 07/31/21 22:00 <RAFIA Sears - Last Filed: 08/01/21 00:32> Vital Signs: Last Vital Signs Temp 98.4 F 07/31/21 22:00 Pulse 110 H 08/01/21 02:11 Resp 16 07/31/21 22:00 BP 145/68 H 08/01/21 02:11 Pulse Ox 97 07/31/21 22:00 <Candi Huggins MD - Last Filed: 08/01/21 03:14> Const: General: cooperative and healthy appearing <RAFIA Sears - Last Filed: 08/01/21 00:32> Orientation/consciousness: patient oriented x3 <RAFIA Sears - Last Filed: 08/01/21 00:32> Limitations: no limitations <RAFIA Sears - Last Filed: 08/01/21 00:32> HENMT: Other: + right-sided periorbital ecchymosis/swelling with 2cm linear laceration noted above right eye. Right cheek with erythema/ecchymosis. No appreciable ocular involvement. No crepitus or palpable orbital step-off Chin with notable ecchymosis/abrasion <Meliza Ibarra [facility] Last Filed: 08/01/21 00:32> Head: No Floyd's sign <Meliza Ibarra [facility] Last Filed: 08/01/21 00:32> Ears: hearing grossly normal bilaterally <Meliza Ibarra [facility] Last Filed: 08/01/21 00:32> General nose exam: Normal external nose present <Meliza Ibarra [facility] Last Filed: 08/01/21 00:32> Eyes: General: appearance normal, both eyes and all related structures <Meliza Ibarra [facility] Last Filed: 08/01/21 00:32> Conjunctivae: conjunctivae normal <Meliza Ibarra [facility] Last Filed: 08/01/21 00:32> Pupils: Equal, round and reactive pupils present <Meliza Ibarra [facility] Last Filed: 08/01/21 00:32> EOM: EOMs intact bilaterally <Meliza Ibarra [facility] Last Filed: 08/01/21 00:32> Neck: Other: No midline cervical spinous tenderness <Meliza Ibarra [facility] Last Filed: 08/01/21 00:32> Neck: Yes normal visual inspection, Yes full ROM and No anterior neck swelling <Meliza Ibarra [facility] Last Filed: 08/01/21 00:32> Resp: Effort & Inspection: normal respiratory effort <Meliza Ibarra [facility] Last Filed: 08/01/21 00:32> Auscultation: clear to auscultation bilaterally, no rales, no rhonchi and no wheezes <Meliza Ibarra [facility] Last Filed: 08/01/21 00:32> Cardio: Rate: regular rate <Meliza Ibarra [facility] Last Filed: 08/01/21 00:32> Heart sounds: S1 normal heart sound present and S2 normal heart sound present <Meliza Ibarra [facility] Last Filed: 08/01/21 00:32> GI: Inspection: Yes normal to inspection <Meliza Ibarra [facility] Last Filed: 08/01/21 00:32> Palpation (GI): Soft to palpation, nontender, no guarding and not rigid <RAFIA Sears - Last Filed: 08/01/21 00:32> Back/Spine/Pelvis: Other: No midline thoracic/lumbar spinous tenderness/step- off/deformity <RAFIA Sears - Last Filed: 08/01/21 00:32> Skin: Rashes: no rashes <RAFIA Sears - Last Filed: 08/01/21 00:32> Neuro: General: patient oriented x3 <RAFIA Sears - Last Filed: 08/01/21 00:32> Cranial nerves: Yes Equal, round and reactive pupils present <RAFIA Sears - Last Filed: 08/01/21 00:32> Gait exam (Neuro): Normal gait present <RAFIA Sears - Last Filed: 08/01/21 00:32> Extrem: General: Yes normal to inspection and Yes full ROM <RAFIA Sears - Last Filed: 08/01/21 00:32> Course Course Course Narrative: -1743-- CT head/brain wo con / CT cervical spine wo con IMPRESSION: 1. No acute intracranial pathology. Moderate cerebral atrophy and chronic white matter disease. 2. No acute fracture or malalignment in the cervical spine. -1800---vital signs obtained and patient noted to be tachycardic and febrile to 101.1 axillary. Labs including lactic/blood cultures ordered. Infection now suspected. Empiric IV Ceftriaxone ordered -1931--spoke to nurse at [facility], denies patient having fever prior to arrival at ED or any other infectious symptoms including cough, vomiting/d iarrhea -no leukocytosis. H&H stable. Lactic acid 1.9. Labs otherwise unremarkable. Patient does not meet severe sepsis criteria -COVID-19/flu/RSV negative XR chest 1V IMPRESSION: Bronchial wall thickening can be seen with a small airways process such as asthma or atypical/viral infection. -2209--UA negative. Patient's fever likely from viral syndrome without lactic acidosis, or leukocytosis > will obtain CT chest & abdomen/pelvis to rule out other possible infectious etiology -0024--procalcitonin negative -0100-- ED care transferred to Dr. Huggins pending CT abdomen pelvis, and CT chest results. If negative anticipate DC back to SNF, if findings anticipate admission <RAFIA Sears - Last Filed: 08/01/21 00:32> -1744-- CT head/brain wo con / CT cervical spine wo con IMPRESSION: 1. No acute intracranial pathology. Moderate cerebral atrophy and chronic white matter disease. 2. No acute fracture or malalignment in the cervical spine. -1800---vital signs obtained and patient noted to be tachycardic and febrile to 101.1 axillary. Labs including lactic/blood cultures ordered. Infection now suspected. Empiric IV Ceftriaxone ordered -1931--spoke to nurse at [facility], denies patient having fever prior to arrival at ED or any other infectious symptoms including cough, vomiting/diarrhea -no leukocytosis. H&H stable. Lactic acid 1.9. Labs otherwise unremarkable. Patient does not meet severe sepsis criteria -COVID-19/flu/RSV negative XR chest 1V IMPRESSION: Bronchial wall thickening can be seen with a small airways process such as asthma or atypical/viral infection. -2209--UA negative. Patient's fever likely from viral syndrome without lactic acidosis, or leukocytosis > will obtain CT chest & abdomen/pelvis to rule out other possible infectious etiology -0024--procalcitonin negative -0100-- ED care transferred to Dr. Huggins pending CT abdomen pelvis, and CT chest results. If negative anticipate DC back to SNF, if findings anticipate admission I received sign-out from RAFIA Ibarra. Chest CT and abdominal CT unremarkable, white blood cell count, lactic acid within normal limits. Unclear why patient had fever on arrival, likely a viral syndrome. <Candi Huggins MD - Last Filed: 08/01/21 03:14> Procedures Laceration Laceration 1: Site: face <RAFIA Sears - Last Filed: 08/01/21 00:32> Side (If applicable): right <RAFIA Sears Last Filed: 08/01/21 00:32> Size (cm): 2 <RAFIA Sears Last Filed: 08/01/21 00:32> Description: linear <RAFIA Sears Last Filed: 08/01/21 00:32> Depth: simple, single layer <RAFIA Sears Last Filed: 08/01/21 00:32> Pre-repair: wound explored and irrigated extensively <RAFIA Sears - Last Filed: 08/01/21 00:32> Skin layer closed with: other (Dermabond) <RAFIA Sears - Last Filed: 08/01/21 00:32> MDM - Fall MDM Narrative Medical decision making narrative: 81-year-old female with a past medical history of anemia, diabetes, HTN, dementia, coming from [facility] for mechanical fall and right sided facial laceration [employer]. On exam VS as, NAD, baseline dementia, physical exam as above, noted laceration above right eye with right-sided facial ecchymosis/erythema. No evidence of skull depression. Rule out ICH/fracture Plan: Head/C-spine CT, update tetanus, repair laceration <RAFIA Sears - Last Filed: 08/01/21 00:32> Medical Records Attestation: I reviewed the patient's medical records. <RAFIA Sears - Last Filed: 08/01/21 00:32> Lab Data Attestation: I reviewed the patient's lab results. <RAFIA Sears - Last Filed: 08/01/21 00:32> Result diagrams: : 07/31/21 18:27 07/31/21 18:27 <RAFIA Sears - Last Filed: 08/01/21 00:32> Labs: Lab Results 07/31/21 07/31/21 07/31/21 Range/Units 18:27 18:27 18:27 WBC 6.3 (4.8-10.8) X10*3/uL RBC 4.25 (4.20-5.50) X10*6/uL Hgb 12.1 (12.0-16.0) g/dl Hct 36.4 L (37-47) % MCV 85.6 (80-98) fL MCH 28.5 (27.0-33.0) pg MCHC 33.2 (31.0-35.0) g/dl RDW 13.5 (11.0-16.0) % Plt Count 266 (160-400) X10*3/uL MPV 10.0 (9.4-12.3) fL Immature Gran % (Auto) 0.3 (0.0-0.4) % Neut % (Auto) 73.7 H (45-73) % Lymph % (Auto) 14.9 L (20-40) % [place] % (Auto) 10.3 (2-11) % Eos % (Auto) 0.2 (0-4) % Baso % (Auto) 0.6 (0-2) % Lymph # (Auto) 0.9 L (1.2-4.9) X10*3/uL [place] # (Auto) 0.7 (0.1-1.2) X10*3/uL Eos # (Auto) 0.0 (0.0-0.4) X10*3/uL Baso # (Auto) 0.0 (0.0-0.2) X10*3/uL Abs Immat Gran (auto) 0.02 (0.00-0.03) X10*3/uL Absolute Neuts (auto) 4.7 (2.0-8.3) X10*3/uL Absolute Nucleated RBC 0.000 (0.0-0.012) X10*3/uL Nucleated RBC % (auto) 0.0 (0.0-0.2) /100WBC Sodium 136 (135-145) mmol/L Potassium 4.8 (3.3-5.1) mmol/L Chloride 103 (96-108) mmol/L Carbon Dioxide 21 L (22-29) mmol/L Anion Gap 17 (12-20) BUN 31 H (9-16) mg/dL Creatinine 1.18 (0.5-1.4) mg/dL Estim Creat Clear Calc TNP Estimated GFR 44 POC Glucose (60-115) mg/dL Random Glucose 173 H (60-115) mg/dL Lactic Acid 1.9 (0.5-2.0) mmol/L Calcium 9.7 (8.4-10.2) mg/dL Magnesium 1.7 (1.6-2.6) mg/dL Total Bilirubin 0.3 (0.0-1.0) mg/dL Direct Bilirubin < 0.2 (0.0-0.5) mg/dL AST 24 (5-31) U/L ALT 25 (0-31) U/L Alkaline Phosphatase 70 (39-117) U/L B-Natriuretic Peptide (<100) pg/mL Total Protein 8.0 (6.5-8.0) g/dL Albumin 4.3 (3.5-5.0) g/dL Lipase 43 (8-78) U/L Procalcitonin ng/mL Urine Color Urine Appearance Urine pH (5.0-8.0) Ur Specific [place] (1.005-1.025) Urine Protein (NEG-TRACE) MG/DL Urine Glucose (UA) (NEG) MG/DL Urine Ketones (NEG) MG/DL Urine Blood (NEG) Urine Nitrite (NEG) Ur Leukocyte Esterase (NEG) Urine RBC (0) /HPF Urine WBC (0-4) /HPF Ur Squamous Epith Cells /LPF Urine Bacteria /LPF Coronavirus (PCR) (Negative) Influenza Type A (PCR) (Negative) Influenza Type B (PCR) (Negative) RSV RNA Qual (PCR) (Negative) 07/31/21 07/31/21 07/31/21 Range/Units 18:27 18:27 18:27 WBC (4.8-10.8) X10*3/uL RBC (4.20-5.50) X10*6/uL Hgb (12.0-16.0) g/dl Hct (37-47) % MCV (80-98) fL MCH (27.0-33.0) pg MCHC (31.0-35.0) g/dl RDW (11.0-16.0) % Plt Count (160-400) X10*3/uL MPV (9.4-12.3) fL Immature Gran % (Auto) (0.0-0.4) % Neut % (Auto) (45-73) % Lymph % (Auto) (20-40) % [place] % (Auto) (2-11) % Eos % (Auto) (0-4) % Baso % (Auto) (0-2) % Lymph # (Auto) (1.2-4.9) X10*3/uL [place] # (Auto) (0.1-1.2) X10*3/uL Eos # (Auto) (0.0-0.4) X10*3/uL Baso # (Auto) (0.0-0.2) X10*3/uL Abs Immat Gran (auto) (0.00-0.03) X10*3/uL Absolute Neuts (auto) (2.0-8.3) X10*3/uL Absolute Nucleated RBC (0.0-0.012) X10*3/uL Nucleated RBC % (auto) (0.0-0.2) /100WBC Sodium (135-145) mmol/L Potassium (3.3-5.1) mmol/L Chloride (96-108) mmol/L Carbon Dioxide (22-29) mmol/L Anion Gap (12-20) BUN (9-16) mg/dL Creatinine (0.5-1.4) mg/dL Estim Creat Clear Calc Estimated GFR POC Glucose (60-115) mg/dL Random Glucose (60-115) mg/dL Lactic Acid (0.5-2.0) mmol/L Calcium (8.4-10.2) mg/dL Magnesium (1.6-2.6) mg/dL Total Bilirubin (0.0-1.0) mg/dL Direct Bilirubin (0.0-0.5) mg/dL AST (5-31) U/L ALT (0-31) U/L Alkaline Phosphatase (39-117) U/L B-Natriuretic Peptide 17 (<100) pg/mL Total Protein (6.5-8.0) g/dL Albumin (3.5-5.0) g/dL Lipase (8-78) U/L Procalcitonin 0.10 ng/mL Urine Color Urine Appearance Urine pH (5.0-8.0) Ur Specific [place] (1.005-1.025) Urine Protein (NEG-TRACE) MG/DL Urine Glucose (UA) (NEG) MG/DL Urine Ketones (NEG) MG/DL Urine Blood (NEG) Urine Nitrite (NEG) Ur Leukocyte Esterase (NEG) Urine RBC (0) /HPF Urine WBC (0-4) /HPF Ur Squamous Epith Cells /LPF Urine Bacteria /LPF Coronavirus (PCR) NEGATIVE (Negative) Influenza Type A (PCR) NEGATIVE (Negative) Influenza Type B (PCR) NEGATIVE (Negative) RSV RNA Qual (PCR) NEGATIVE (Negative) 07/31/21 07/31/21 Range/Units 19:05 20:58 WBC (4.8-10.8) X10*3/uL RBC (4.20-5.50) X10*6/uL Hgb (12.0-16.0) g/dl Hct (37-47) % MCV (80-98) fL MCH (27.0-33.0) pg MCHC (31.0-35.0) g/dl RDW (11.0-16.0) % Plt Count (160-400) X10*3/uL MPV (9.4-12.3) fL Immature Gran % (Auto) (0.0-0.4) % Neut % (Auto) (45-73) % Lymph % (Auto) (20-40) % [place] % (Auto) (2-11) % Eos % (Auto) (0-4) % Baso % (Auto) (0-2) % Lymph # (Auto) (1.2-4.9) X10*3/uL [place] # (Auto) (0.1-1.2) X10*3/uL Eos # (Auto) (0.0-0.4) X10*3/uL Baso # (Auto) (0.0-0.2) X10*3/uL Abs Immat Gran (auto) (0.00-0.03) X10*3/uL Absolute Neuts (auto) (2.0-8.3) X10*3/uL Absolute Nucleated RBC (0.0-0.012) X10*3/uL Nucleated RBC % (auto) (0.0-0.2) /100WBC Sodium (135-145) mmol/L Potassium (3.3-5.1) mmol/L Chloride (96-108) mmol/L Carbon Dioxide (22-29) mmol/L Anion Gap (12-20) BUN (9-16) mg/dL Creatinine (0.5-1.4) mg/dL Estim Creat Clear Calc Estimated GFR POC Glucose 157 H (60-115) mg/dL Random Glucose (60-115) mg/dL Lactic Acid (0.5-2.0) mmol/L Calcium (8.4-10.2) mg/dL Magnesium (1.6-2.6) mg/dL Total Bilirubin (0.0-1.0) mg/dL Direct Bilirubin (0.0-0.5) mg/dL AST (5-31) U/L ALT (0-31) U/L Alkaline Phosphatase (39-117) U/L B-Natriuretic Peptide (<100) pg/mL Total Protein (6.5-8.0) g/dL Albumin (3.5-5.0) g/dL Lipase (8-78) U/L Procalcitonin ng/mL Urine Color YELLOW Urine Appearance CLEAR Urine pH 6.0 (5.0-8.0) Ur Specific [place] 1.025 (1.005-1.025) Urine Protein 2+ H (NEG-TRACE) MG/DL Urine Glucose (UA) NEG (NEG) MG/DL Urine Ketones NEG (NEG) MG/DL Urine Blood NEG (NEG) Urine Nitrite NEG (NEG) Ur Leukocyte Esterase NEG (NEG) Urine RBC 0-2 (0) /HPF Urine WBC 0 (0-4) /HPF Ur Squamous Epith Cells TRACE /LPF Urine Bacteria NONE /LPF Coronavirus (PCR) (Negative) Influenza Type A (PCR) (Negative) Influenza Type B (PCR) (Negative) RSV RNA Qual (PCR) (Negative) <RAFIA Sears - Last Filed: 08/01/21 00:32> Lab Results 07/31/21 07/31/21 07/31/21 Range/Units 18:27 18:27 18:27 WBC 6.3 (4.8-10.8) X10*3/uL RBC 4.25 (4.20-5.50) X10*6/uL Hgb 12.1 (12.0-16.0) g/dl Hct 36.4 L (37-47) % MCV 85.6 (80-98) fL MCH 28.5 (27.0-33.0) pg MCHC 33.2 (31.0-35.0) g/dl RDW 13.5 (11.0-16.0) % Plt Count 266 (160-400) X10*3/uL MPV 10.0 (9.4-12.3) fL Immature Gran % (Auto) 0.3 (0.0-0.4) % Neut % (Auto) 73.7 H (45-73) % Lymph % (Auto) 14.9 L (20-40) % [place] % (Auto) 10.3 (2-11) % Eos % (Auto) 0.2 (0-4) % Baso % (Auto) 0.6 (0-2) % Lymph # (Auto) 0.9 L (1.2-4.9) X10*3/uL [place] # (Auto) 0.7 (0.1-1.2) X10*3/uL Eos # (Auto) 0.0 (0.0-0.4) X10*3/uL Baso # (Auto) 0.0 (0.0-0.2) X10*3/uL Abs Immat Gran (auto) 0.02 (0.00-0.03) X10*3/uL Absolute Neuts (auto) 4.7 (2.0-8.3) X10*3/uL Absolute Nucleated RBC 0.000 (0.0-0.012) X10*3/uL Nucleated RBC % (auto) 0.0 (0.0-0.2) /100WBC Sodium 136 (135-145) mmol/L Potassium 4.8 (3.3-5.1) mmol/L Chloride 103 (96-108) mmol/L Carbon Dioxide 21 L (22-29) mmol/L Anion Gap 17 (12-20) BUN 31 H (9-16) mg/dL Creatinine 1.18 (0.5-1.4) mg/dL Estim Creat Clear Calc TNP Estimated GFR 44 POC Glucose (60-115) mg/dL Random Glucose 173 H (60-115) mg/dL Lactic Acid 1.9 (0.5-2.0) mmol/L Calcium 9.7 (8.4-10.2) mg/dL Magnesium 1.7 (1.6-2.6) mg/dL Total Bilirubin 0.3 (0.0-1.0) mg/dL Direct Bilirubin < 0.2 (0.0-0.5) mg/dL AST 24 (5-31) U/L ALT 25 (0-31) U/L Alkaline Phosphatase 70 (39-117) U/L B-Natriuretic Peptide (<100) pg/mL Total Protein 8.0 (6.5-8.0) g/dL Albumin 4.3 (3.5-5.0) g/dL Lipase 43 (8-78) U/L Procalcitonin ng/mL Urine Color Urine Appearance Urine pH (5.0-8.0) Ur Specific [place] (1.005-1.025) Urine Protein (NEG-TRACE) MG/DL Urine Glucose (UA) (NEG) MG/DL Urine Ketones (NEG) MG/DL Urine Blood (NEG) Urine Nitrite (NEG) Ur Leukocyte Esterase (NEG) Urine RBC (0) /HPF Urine WBC (0-4) /HPF Ur Squamous Epith Cells /LPF Urine Bacteria /LPF Coronavirus (PCR) (Negative) Influenza Type A (PCR) (Negative) Influenza Type B (PCR) (Negative) RSV RNA Qual (PCR) (Negative) 07/31/21 07/31/21 07/31/21 Range/Units 18:27 18:27 18:27 WBC (4.8-10.8) X10*3/uL RBC (4.20-5.50) X10*6/uL Hgb (12.0-16.0) g/dl Hct (37-47) % MCV (80-98) fL MCH (27.0-33.0) pg MCHC (31.0-35.0) g/dl RDW (11.0-16.0) % Plt Count (160-400) X10*3/uL MPV (9.4-12.3) fL Immature Gran % (Auto) (0.0-0.4) % Neut % (Auto) (45-73) % Lymph % (Auto) (20-40) % [place] % (Auto) (2-11) % Eos % (Auto) (0-4) % Baso % (Auto) (0-2) % Lymph # (Auto) (1.2-4.9) X10*3/uL [place] # (Auto) (0.1-1.2) X10*3/uL Eos # (Auto) (0.0-0.4) X10*3/uL Baso # (Auto) (0.0-0.2) X10*3/uL Abs Immat Gran (auto) (0.00-0.03) X10*3/uL Absolute Neuts (auto) (2.0-8.3) X10*3/uL Absolute Nucleated RBC (0.0-0.012) X10*3/uL Nucleated RBC % (auto) (0.0-0.2) /100WBC Sodium (135-145) mmol/L Potassium (3.3-5.1) mmol/L Chloride (96-108) mmol/L Carbon Dioxide (22-29) mmol/L Anion Gap (12-20) BUN (9-16) mg/dL Creatinine (0.5-1.4) mg/dL Estim Creat Clear Calc Estimated GFR POC Glucose (60-115) mg/dL Random Glucose (60-115) mg/dL Lactic Acid (0.5-2.0) mmol/L Calcium (8.4-10.2) mg/dL Magnesium (1.6-2.6) mg/dL Total Bilirubin (0.0-1.0) mg/dL Direct Bilirubin (0.0-0.5) mg/dL AST (5-31) U/L ALT (0-31) U/L Alkaline Phosphatase (39-117) U/L B-Natriuretic Peptide 17 (<100) pg/mL Total Protein (6.5-8.0) g/dL Albumin (3.5-5.0) g/dL Lipase (8-78) U/L Procalcitonin 0.10 ng/mL Urine Color Urine Appearance Urine pH (5.0-8.0) Ur Specific [place] (1.005-1.025) Urine Protein (NEG-TRACE) MG/DL Urine Glucose (UA) (NEG) MG/DL Urine Ketones (NEG) MG/DL Urine Blood (NEG) Urine Nitrite (NEG) Ur Leukocyte Esterase (NEG) Urine RBC (0) /HPF Urine WBC (0-4) /HPF Ur Squamous Epith Cells /LPF Urine Bacteria /LPF Coronavirus (PCR) NEGATIVE (Negative) Influenza Type A (PCR) NEGATIVE (Negative) Influenza Type B (PCR) NEGATIVE (Negative) RSV RNA Qual (PCR) NEGATIVE (Negative) 07/31/21 07/31/21 Range/Units 19:05 20:58 WBC (4.8-10.8) X10*3/uL RBC (4.20-5.50) X10*6/uL Hgb (12.0-16.0) g/dl Hct (37-47) % MCV (80-98) fL MCH (27.0-33.0) pg MCHC (31.0-35.0) g/dl RDW (11.0-16.0) % Plt Count (160-400) X10*3/uL MPV (9.4-12.3) fL Immature Gran % (Auto) (0.0-0.4) % Neut % (Auto) (45-73) % Lymph % (Auto) (20-40) % [place] % (Auto) (2-11) % Eos % (Auto) (0-4) % Baso % (Auto) (0-2) % Lymph # (Auto) (1.2-4.9) X10*3/uL [place] # (Auto) (0.1-1.2) X10*3/uL Eos # (Auto) (0.0-0.4) X10*3/uL Baso # (Auto) (0.0-0.2) X10*3/uL Abs Immat Gran (auto) (0.00-0.03) X10*3/uL Absolute Neuts (auto) (2.0-8.3) X10*3/uL Absolute Nucleated RBC (0.0-0.012) X10*3/uL Nucleated RBC % (auto) (0.0-0.2) /100WBC Sodium (135-145) mmol/L Potassium (3.3-5.1) mmol/L Chloride (96-108) mmol/L Carbon Dioxide (22-29) mmol/L Anion Gap (12-20) BUN (9-16) mg/dL Creatinine (0.5-1.4) mg/dL Estim Creat Clear Calc Estimated GFR POC Glucose 157 H (60-115) mg/dL Random Glucose (60-115) mg/dL Lactic Acid (0.5-2.0) mmol/L Calcium (8.4-10.2) mg/dL Magnesium (1.6-2.6) mg/dL Total Bilirubin (0.0-1.0) mg/dL Direct Bilirubin (0.0-0.5) mg/dL AST (5-31) U/L ALT (0-31) U/L Alkaline Phosphatase (39-117) U/L B-Natriuretic Peptide (<100) pg/mL Total Protein (6.5-8.0) g/dL Albumin (3.5-5.0) g/dL Lipase (8-78) U/L Procalcitonin ng/mL Urine Color YELLOW Urine Appearance CLEAR Urine pH 6.0 (5.0-8.0) Ur Specific [place] 1.025 (1.005-1.025) Urine Protein 2+ H (NEG-TRACE) MG/DL Urine Glucose (UA) NEG (NEG) MG/DL Urine Ketones NEG (NEG) MG/DL Urine Blood NEG (NEG) Urine Nitrite NEG (NEG) Ur Leukocyte Esterase NEG (NEG) Urine RBC 0-2 (0) /HPF Urine WBC 0 (0-4) /HPF Ur Squamous Epith Cells TRACE /LPF Urine Bacteria NONE /LPF Coronavirus (PCR) (Negative) Influenza Type A (PCR) (Negative) Influenza Type B (PCR) (Negative) RSV RNA Qual (PCR) (Negative) <Candi Huggins MD - Last Filed: 08/01/21 03:14> Imaging Data CT of the chest and abdomen/pelvis: Radiologist's impression: TECHNIQUE: No IV contrast was utilized. Multidetector helical imaging was performed through the chest, abdomen, and pelvis. Coronal and sagittal reformatted images were created at the technologist workstation. DOSE LOWERING TECHNIQUES: This CT examination was performed using dose optimization techniques as appropriate, variously including the following: ?- Automated exposure control ?- Adjustment of mA and/or kV according to patient size (this includes techniques or standardized protocols for targeted exams were dose is matched to indication/reason for exam; i.e. extremities or head) ?- Use of iterative reconstruction technique DLP: 724 mGy-cm FINDINGS: Chest: Scattered calcified granulomas noted. No regions of consolidation bilaterally. A few curvilinear bilateral opacities favor atelectasis or scarring. Redemonstrated tiny biapical lung nodules appear similar to prior study of 04/16/2018, favoring a benign etiology. No pneumothorax or pleural effusion. The visualized thyroid gland is unremarkable. Calcified mediastinal and right hilar lymph nodes are consistent with prior granulomatous disease. No discrete adenopathy is seen. Cardiac size is within normal limits; no pericardial effusion. Coronary artery calcifications are present. Thoracic aorta appears normal in caliber. No axillary lymphadenopathy is present. Abdomen/Pelvis: The liver is homogeneous in attenuation without intrahepatic biliary ductal dilatation. Status post cholecystectomy. There is partial fatty atrophy of the pancreas. The spleen and adrenal glands appear unremarkable. No hydronephrosis. No renal or ureteral calculi are present. Redemonstrated mid left renal cyst; no follow-up recommended. The urinary bladder is distended without wall thickening. Patient appears status post hysterectomy. Colonic diverticulosis is noted. The small and large bowel are otherwise unremarkable without evidence of obstruction or pericolonic inflammatory change. The appendix is unremarkable. No free fluid or free air is present. Scattered atherosclerotic calcifications are noted. No retroperitoneal or pelvic lymphadenopathy is seen. Degenerative changes are noted in the spine, including facet arthropathy of the lower lumbar spine. CT/CT abdomen pelvis wo con IMPRESSION: 1.? No acute findings identified, though assessment is somewhat suboptimal without intravenous contrast. 2.? Colonic diverticulosis without diverticulitis. 3.? Evidence of prior granulomatous disease in the chest. <Candi Huggins MD - Last Filed: 08/01/21 03:14> Discharge Plan Discharge Clinical Impression: Fever, Laceration of head, Acute viral syndrome <RAFIA Sears - Last Filed: 08/01/21 00:32> Patient Disposition: Xfer Other <RAFIA Sears - Last Filed: 08/01/21 00:32> Transfer Details: [facility] <RAFIA Sears - Last Filed: 08/01/21 00:32> [facility] <Candi Huggins MD - Last Filed: 08/01/21 03:14> Instructions: Fever in Adults (ED) <RAFIA Sears - Last Filed: 08/01/21 00:32> Additional Instructions: Patient was febrile in the ED to 102 Patient tested negative for COVID-19, the flu, and RSV Blood work was reassuring, urine was unremarkable Chest x-ray showed possible atypical/viral infection <RAFIA Sears - Last Filed: 08/01/21 00:32> Prescriptions: No Action montelukast 10 mg tablet 1 tab PO DAILY RF: 0 metoprolol tartrate 25 mg tablet 1 tab PO BID RF: 0 acetylcysteine 600 mg capsule 2 cap PO BID RF: 0 clonazepam 0.5 mg tablet 1 mg PO TID RF: 0 risperidone 0.25 mg tablet 0.75 mg PO DAILY RF: 0 gabapentin 100 mg capsule 1 cap PO TID RF: 0 polyethylene glycol 3350 17 gram/dose powder 17 g PO DAILY RF: 0 risperidone 1 mg tablet 1 tab PO DAILY RF: 0 tramadol 50 mg tablet 1 tab PO BID PRN (Reason: Pain) RF: 0 triamcinolone acetonide 0.1 % cream 1 appl topical DAILY PRN (Reason: Itching) RF: 0 fluticasone propion-salmeterol 500-50 mcg/dose blister with device 1 inh inhalation BID RF: 0 hydroxyzine HCl 25 mg tablet 1 tab PO TID PRN (Reason: Itching) RF: 0 ammonium lactate 12 % cream 1 appl topical BID RF: 0 albuterol sulfate 90 mcg/actuation HFA aerosol inhaler 90 mcg inhalation QID PRN (Reason: Dyspnea) RF: 0 fluocinonide 0.05 % cream 1 applic topical DAILY PRN (Reason: Itching) RF: 0 insulin aspart U-100 [Novolog Flexpen U-100 Insulin] 100 unit/mL (3 mL) insulin pen See Rx Instructions .ROUTE .COMPLEX RF: 0 Lantus Solostar U-100 Insulin 100 unit/mL (3 mL) insulin pen 20 unit subcut BID RF: 0 metronidazole [Flagyl] 500 mg tablet 500 mg PO BID 7 Days Qty: 14 RF: 0 levofloxacin 250 mg tablet 500 mg PO DAILY 7 Days Qty: 14 RF: 0 <RAFIA Sears - Last Filed: 08/01/21 00:32>
[2021-07-31 17:55] VITALS: BP 136/70; PULSE 125; RESP 16; TEMP 38.4; O2SAT 98
[2021-07-31 18:36] LABS: MANUAL DIFF FLAG NO
[2021-07-31 18:39] LABS: Basophils Percent Auto 0.6 % (0-2); Eosinophils Percent Auto 0.2 % (0-4); Hematocrit 36.4 % (37-47); Hemoglobin 12.1 g/dl (12.0-16.0); Imm Gran Abs Auto 0.02 X10*3/uL (0.00-0.03); Imm Gran Pct Auto 0.3 % (0.0-0.4); Lymphocytes Absolute Auto 0.9 X10*3/uL (1.2-4.9); Lymphocytes Percent Auto 14.9 % (20-40); Mean Corpuscular HGB Conc 33.2 g/dl (31.0-35.0); Mean Corpuscular Hemoglobin 28.5 pg (27.0-33.0); Mean Corpuscular Volume 85.6 fL (80-98); Monocytes Absolute Auto 0.7 X10*3/uL (0.1-1.2); Monocytes Percent Auto 10.3 % (2-11); Neutrophils Absolute Auto 4.7 X10*3/uL (2.0-8.3); Neutrophils Percent Auto 73.7 % (45-73); Platelet Count 266 X10*3/uL (160-400); Red Blood Count 4.25 X10*6/uL (4.20-5.50); Red Cell Distribution Width 13.5 % (11.0-16.0); White Blood Count 6.3 X10*3/uL (4.8-10.8)
[2021-07-31 18:44] VITALS: TEMP 38.8
[2021-07-31 18:50] LABS: Lactic Acid 1.9 mmol/L (0.5-2.0)
[2021-07-31 18:54] LABS: Alanine Aminotransferase 25 U/L (0-31); Albumin Level 4.3 g/dL (3.5-5.0); Alkaline Phosphatase 70 U/L (39-117); Anion Gap 17 (12-20); Aspartate Amino Transferase 24 U/L (5-31); Bilirubin Direct < 0.2 mg/dL (0.0-0.5); Bilirubin Total 0.3 mg/dL (0.0-1.0); Blood Urea Nitrogen 31 mg/dL (9-16); Calcium 9.7 mg/dL (8.4-10.2); Carbon Dioxide 21 mmol/L (22-29); Chloride 103 mmol/L (96-108); Estimated Glomerular Filt Rate 44; Glucose Random 173 mg/dL (60-115); Lipase 43 U/L (8-78); Magnesium 1.7 mg/dL (1.6-2.6); Potassium 4.8 mmol/L (3.3-5.1); Sodium 136 mmol/L (135-145)
[2021-07-31 18:57] LABS: B Type Natriuretic Peptide 17 pg/mL (<100)
[2021-07-31] MEDS: Acetaminophen Supp 650 MG SUPP.RECT PR (19:01)
[2021-07-31] MEDS: 0.9 % Sodium Chloride 1,000 ML 999 ML IVCONT ×2 (19:03→20:19)
[2021-07-31 19:10] LABS: Glucose, Whole Blood 157 mg/dL (60-115)
--- NOTE | 2021-07-31 19:15 | PC.NURSE ---
attempted to straight cath pt - no urine production noted. pt started on IV fluids and given rectal suppository for 102 Rectal temp. Pt disoriented and not making sense with use of hospital equine dentist. pt POC [id number]
[2021-07-31 19:16] LABS: Influenza A PCR NEGATIVE (Negative); Influenza B PCR NEGATIVE (Negative); Resp Syncy Virus RNA Qual PCR NEGATIVE (Negative); SARS COV2 PCR INHOUSE NEGATIVE (Negative)
[2021-07-31 20:35] VITALS: BP 137/60; PULSE 104; RESP 14; O2SAT 96
--- NOTE | 2021-07-31 20:55 | PC.NURSE ---
straight cath obtained urine for lab. UA sent to lab for eval. pt tolerated well. VS obtained and WNL.
[2021-07-31 20:59] VITALS: TEMP 37.7
--- NOTE | 2021-07-31 20:59 | PC.NURSE ---
patient was incontinent of urine ,patient was clean up by myself and carolyn bazan .
[2021-07-31 21:09] LABS: Appearance Urine CLEAR; Color Urine YELLOW; Glucose Urine UA NEG (NEG); Leukocyte Esterase Urine NEG (NEG); Nitrite Urine NEG (NEG); Specific Gravity - Urine 1.025 (1.005-1.025); UACC Culture Trigger NO; Urine Blood NEG (NEG); Urine Ketones NEG (NEG); Urine Protein 2+ MG/DL (NEG-TRACE)
[2021-07-31 21:31] LABS: RBC Urine 0-2 /HPF (0); Squamous Epithelial Cell Urine TRACE /LPF; WBC Urine 0 /HPF (0-4)
[2021-07-31 22:00] VITALS: BP 125/74; PULSE 107; RESP 16; TEMP 36.9; O2SAT 97
[2021-08-01] MEDS: LORazepam 2 MG/ML VIAL 1 MG IVPUSH (01:03)
[2021-08-01 02:11] VITALS: BP 145/68; PULSE 110
--- NOTE | 2021-08-01 03:36 | PC.NURSE ---
REPORT CALLED TO CISCO LOPES AT [facility]. EMS IS NOTIFIED FOR TRANSFER TO FACILITY.
== END 2021-08-01 05:38 | disposition other institution (70) ==
PROVIDERS: Physician Assistant; Emergency Provider Emergency Medicine; PCP Family Medicine
DX: S01.81XA Laceration without foreign body of other part of head, initial encounter (principal); B34.9 Viral infection, unspecified; I10 Essential (primary) hypertension; E11.9 Type 2 diabetes mellitus without complications; F03.90 Unspecified dementia, unspecified severity, without behavioral disturbance, psychotic disturbance, mood disturbance, and anxiety; W19.XXXA Unspecified fall, initial encounter; Y93.9 Activity, unspecified; Y92.009 Unspecified place in unspecified non-institutional (private) residence as the place of occurrence of the external cause; Y99.9 Unspecified external cause status; Z20.822 Contact with and (suspected) exposure to COVID-19
CPT/HCPCS: 0241U; 36415; 70450; 71045; 71250; 72125; 74176; 80048; 80076; 81001; 82947; 83605; 83690; 83735; 83880; 84145; 85025; 87040; 90715; 99285; J2060

== ENCOUNTER 2022-01-22 21:13 | Emergency (ER) | payer OTHER, MEDICAID, SELFPAY ==
--- NOTE | ~2022-01-22 | CT_ITS ---
EXAMINATION: CT HEAD WITHOUT CONTRAST CT CERVICAL SPINE WITHOUT CONTRAST CLINICAL INFORMATION: Fall COMPARISON: 07/31/2021 TECHNIQUE: Multidetector CT imaging of the head and cervical spine was performed without the use of intravenous contrast. Multiplanar reformats are reviewed. This CT examination was performed using dose optimization techniques as appropriate, variously including the following: *Automated exposure control *Adjustment of mA and/or kV according to patient size (this includes techniques or standardized protocols for targeted exams where dose is matched to indication/reason for exam; i.e. extremities or head) *Use of iterative reconstruction technique DLP: 902 mGy-cm. FINDINGS: There is no evidence of acute intracranial hemorrhage or territorial infarction. No abnormal mass effect or midline shift is seen. Barnes to white matter differentiation is well preserved. No extra-axial fluid collections are identified. Moderate generalized brain parenchymal volume loss. No disproportionate ventriculomegaly to suggest superimposed communicating/normal pressure hydrocephalus. Patchy and confluent subcortical, periventricular and deep white matter low-attenuation changes redemonstrated, statistically reflective of chronic white matter small vessel ischemic disease. Right parietal calvarial subgaleal hematoma. Underlying calvarium intact. The mastoid air cells and visualized portions of the paranasal sinuses are well-aerated. Atlantooccipital alignment is maintained. The vertebral bodies and posterior elements align normally. No acute fracture or subluxation. Vertebral body heights are maintained. Small endplate osteophyte present C5-C6 and C6-C7 with accompanying uncovertebral arthrosis. Mild facet arthropathy throughout the cervical spine. Incidental right cervical rib. The paraspinal soft tissues are unremarkable. The imaged lung apices are clear CT/CT cervical spine wo con IMPRESSION: No acute intracranial pathology. No cervical spine fracture or malalignment.
[2022-01-22 21:26] VITALS: BP 128/61; BP 138/62; PULSE 72; PULSE 93; RESP 20; O2SAT 95; O2SAT 97; BMI 16.0
--- NOTE | 2022-01-22 21:29 | ED_ITS ---
HPI - Head Injury General Chief complaint: Fall Stated complaint: HEAD STRIKE DUE TO FALL Time Seen by Provider: 01/22/22 21:29 Source: EMS Mode of arrival: EMS Limitations: altered mental status History of Present Illness HPI Narrative: [facility] to [facility] with history of dementia and a mechanical fall risk prior to arrival unwitnessed no change in mental status had a small laceration at the back of the head no seizures other injuries Related Data Home Medications Medication Instructions Recorded Confirmed acetylcysteine 600 mg capsule 2 cap PO BID 10/03/20 10/03/20 albuterol sulfate 90 mcg/actuation 90 mcg INHALATION QID PRN 10/03/20 10/03/20 aerosol inhaler ammonium lactate 12 % topical cream 1 appl TOPICAL BID 10/03/20 10/03/20 clonazepam 0.5 mg tablet 1 mg PO TID 10/03/20 10/03/20 fluocinonide 0.05 % topical cream 1 applic TOPICAL DAILY PRN 10/03/20 10/03/20 fluticasone 500 mcg-salmeterol 50 1 inh INHALATION BID 10/03/20 10/03/20 mcg/dose blistr powdr for inhalation gabapentin 100 mg capsule 1 cap PO TID 10/03/20 10/03/20 hydroxyzine HCl 25 mg tablet 1 tab PO TID PRN 10/03/20 10/03/20 insulin aspart U-100 100 unit/mL See Rx Instructions .ROUTE .COMPLEX 10/03/20 10/03/20 (3 mL) subcutaneous pen (Novolog Flexpen U-100 Insulin aspart) insulin glargine 100 unit/mL (3 20 unit SUBCUT BID 10/03/20 10/03/20 mL) subcutaneous pen (Lantus Solostar U-100 Insulin) metoprolol tartrate 25 mg tablet 1 tab PO BID 10/03/20 10/03/20 montelukast 10 mg tablet 1 tab PO DAILY 10/03/20 10/03/20 polyethylene glycol 3350 17 17 g PO DAILY 10/03/20 10/03/20 gram/dose oral powder risperidone 0.25 mg tablet 0.75 mg PO DAILY 10/03/20 10/03/20 risperidone 1 mg tablet 1 tab PO DAILY 10/03/20 10/03/20 tramadol 50 mg tablet 1 tab PO BID PRN 10/03/20 10/03/20 triamcinolone acetonide 0.1 % 1 appl TOPICAL DAILY PRN 10/03/20 10/03/20 topical cream Previous Rx's Medication Instructions Recorded levofloxacin 250 mg tablet 500 mg PO DAILY 7 Days #14 tab 03/04/21 metronidazole 500 mg tablet 500 mg PO BID 7 Days #14 tab 03/04/21 (Flagyl) Allergies Allergy/AdvReac Type Severity Reaction Status Date / Time aspirin [ASA] Allergy Unknown RASH Verified 01/22/22 21:32 niacin [Niacin] Allergy Unknown Rash Verified 01/22/22 21:32 penicillin G [Penicillin G] Allergy Unknown HIVES Verified 01/22/22 21:32 penicillin V Allergy Unknown Hives Verified 01/22/22 21:32 Penicillins Allergy Unknown UNKNOWN Verified 01/22/22 21:32 rofecoxib [From Vioxx] Allergy Unknown UNKNOWN Verified 01/22/22 21:32 Iodinated Contrast Media Allergy Swelling Verified 01/22/22 21:32 [IV Contrast Dye] moxifloxacin AdvReac Nausea Verified 01/22/22 21:32 Review of Systems Review of Systems: Yes Unobtainable due to mental status [facility] Past Medical History Medical History Anemia Dementia Diabetes mellitus, type 2 Hypertension Social History Social History Alcohol intake: unknown Advance Directives: Yes Advance Directives on File: Yes Advance Directives Date on File: 02/25/21 Physical Exam Vital Signs: Vital Signs: Last Vital Signs Pulse 93 01/22/22 21:26 Resp 20 01/22/22 21:26 BP 128/61 01/22/22 21:26 Pulse Ox 95 01/22/22 21:26 BMI result Body Mass Index 16.0 Appearance: Alert. And awake demented Eyes: PERRL HEENT: Pharynx normal. Oral Mucosa moist superficial laceration at the occipital area Neck: Normal inspection. Neck supple. CVS: Normal heart rate and rhythm. Pulses normal. Respiratory: No respiratory distress. Equal air entry bilateral, Abdomen: Soft and nontender. Bowel sounds are present, no mass palpable, no CVA tenderness Skin: Skin warm and dry. Normal skin color. Normal skin turgor. Extremities: No lower extremity edema. No calf tenderness stable pelvis Neuro: Alert and awake No motor deficit. No sensory deficit.No cerebellar signs , cranial nerves II-XII intact MDM - Head Injury MDM Narrative Medical decision making narrative: Patient status post mechanical fall CT head and C-spine negative scalp at laceration which was stapled by 7 guanako patient has beenat her baseline will discharge patient back to nursing Procedures Laceration Laceration 1: Site: scalp Side (If applicable): right Size (cm): 3 Description: linear Skin layer closed with: other ([place] #7) Discharge Plan Discharge Clinical Impression: Head injury, Laceration of scalp Patient Disposition: er [facility] Instructions: Laceration (ED), Head Injury (ED) Additional Instructions: Local care as advised Head CT and C-spine CT were negative 7 guanako were placed remove them in 5-7 days Prescriptions: No Action montelukast 10 mg tablet 1 tab PO DAILY 0RF metoprolol tartrate 25 mg tablet 1 tab PO BID 0RF acetylcysteine 600 mg capsule 2 cap PO BID 0RF clonazepam 0.5 mg tablet 1 mg PO TID 0RF risperidone 0.25 mg tablet 0.75 mg PO DAILY 0RF Rx Instructions: Give at 18:00 gabapentin 100 mg capsule 1 cap PO TID 0RF polyethylene glycol 3350 17 gram/dose powder 17 g PO DAILY 0RF risperidone 1 mg tablet 1 tab PO DAILY 0RF tramadol 50 mg tablet 1 tab PO BID PRN (Reason: Pain) 0RF triamcinolone acetonide 0.1 % cream 1 appl topical DAILY PRN (Reason: Itching) 0RF fluticasone propion-salmeterol 500-50 mcg/dose blister with device 1 inh inhalation BID 0RF hydroxyzine HCl 25 mg tablet 1 tab PO TID PRN (Reason: Itching) 0RF ammonium lactate 12 % cream 1 appl topical BID 0RF albuterol sulfate 90 mcg/actuation HFA aerosol inhaler 90 mcg inhalation QID PRN (Reason: Dyspnea) 0RF fluocinonide 0.05 % cream 1 applic topical DAILY PRN (Reason: Itching) 0RF insulin aspart U-100 [Novolog Flexpen U-100 Insulin] 100 unit/mL (3 mL) insulin pen See Rx Instructions .ROUTE .COMPLEX 0RF Rx Instructions: With meals and at bedtime Sliding scale Lantus Solostar U-100 Insulin 100 unit/mL (3 mL) insulin pen 20 unit subcut BID 0RF metronidazole [Flagyl] 500 mg tablet 500 mg PO BID 7 Days Qty: 14 0RF levofloxacin 250 mg tablet 500 mg PO DAILY 7 Days Qty: 14 0RF Interventions: ED Discharge Assessment Last Done: 01/23/22 00:15 Discharge Date/Time: 01/23/22 00:17
--- NOTE | 2022-01-22 21:33 | PC.NURSE ---
MD at bedside for primary eval. Plan for [facility]/neck CT and wound repair.
--- NOTE | 2022-01-22 23:45 | PC.NURSE ---
MD at bedside for wound repair, 7 guanako applied, wound bandaged and wrapped. Minimal bleeding noted, pt tolerating procedure well.
--- NOTE | 2022-01-23 00:04 | PC.NURSE ---
Nurse [facility] nurse [facility] RN @ [facility] asking this RN if we could keep her overnight because it's late. This RN explaining that we cannot admit patients without a reason and that unfortunately she would need to be sent back to the facility as her discharge is ready. Awaiting EMS transport.
== END 2022-01-23 00:17 ==
PROVIDERS: Emergency Provider Internal Medicine; PCP Family Medicine
DX: S09.90XA Unspecified injury of head, initial encounter (principal); S01.01XA Laceration without foreign body of scalp, initial encounter; W18.30XA Fall on same level, unspecified, initial encounter; I10 Essential (primary) hypertension; E11.9 Type 2 diabetes mellitus without complications; F03.90 Unspecified dementia, unspecified severity, without behavioral disturbance, psychotic disturbance, mood disturbance, and anxiety; Y93.9 Activity, unspecified; Y92.129 Unspecified place in nursing home as the place of occurrence of the external cause; Y99.9 Unspecified external cause status; Z79.4 Long term (current) use of insulin
CPT/HCPCS: 12002; 70450; 72125; 99283; 99284

== ENCOUNTER 2022-04-22 12:19 | Emergency (ER) | payer OTHER, SELFPAY ==
--- NOTE | ~2022-04-22 | CT_ITS ---
EXAMINATION: CT ABDOMEN AND PELVIS WITHOUT CONTRAST CLINICAL INFORMATION: Abdominal pain COMPARISON: CT abdomen and pelvis 08/01/2021 TECHNIQUE: Multidetector volumetric imaging was performed from the superior aspect of the liver through the pubic symphysis. Sagittal and coronal reformatted images were obtained on the technologist's workstation. This CT examination was performed using dose optimization techniques as appropriate, variously including the following: *Automated exposure control *Adjustment of mA and/or kV according to patient size (this includes techniques or standardized protocols for targeted exams where dose is matched to indication/reason for exam; i.e. extremities or head) *Use of iterative reconstruction technique DLP: 393 mGy-cm FINDINGS: LUNG BASES: Small calcified granulomas at the lung bases. Mild bibasilar atelectasis. Mitral annular calcifications. Suspected small hiatal hernia. LIVER, GALLBLADDER, AND BILIARY TREE: Normal hepatic attenuation. Couple small calcifications in the left liver lobe are redemonstrated. No liver lesions. Extrahepatic bile duct measures 1.1 cm in diameter unchanged. No intrahepatic biliary ductal dilation. Status post cholecystectomy with surgical clips in the gallbladder fossa. PANCREAS: Mild pancreatic atrophy. A punctate calcification the pancreatic neck noted. No pancreatic lesion or peripancreatic inflammatory change. SPLEEN: Unremarkable. ADRENAL GLANDS: Unremarkable. KIDNEYS AND URETERS: 1.8 cm fluid density simple cyst in the left mid pole, unchanged. No other renal lesions. No radiodense urinary tract calculi. No hydronephrosis or perinephric stranding. BLADDER: Markedly distended. No bladder wall thickening. GASTROINTESTINAL TRACT: Colonic diverticulosis. No evidence of acute diverticulitis. No bowel wall thickening or dilated bowel loops. Appendix is within normal limits. No ascites or free air. ABDOMINAL WALL: No significant hernia is appreciated. LYMPH NODES: No lymphadenopathy. VASCULAR: Normal caliber abdominal aorta. Mild vascular calcifications. PELVIC VISCERA: Status post hysterectomy. No free pelvic fluid. OSSEOUS STRUCTURES: No acute fracture or suspicious osseous lesion. CT/CT abdomen pelvis wo con IMPRESSION: 1. No acute intra-abdominal process identified. 2. Colonic diverticulosis. No evidence of acute diverticulitis. 3. Status post cholecystectomy. 4. Prominently distended urinary bladder. Correlate clinically with bladder dysfunction or with difficulty voiding.
--- NOTE | ~2022-04-22 | XR_ITS ---
EXAMINATION: XR FOOT, RIGHT CLINICAL INFORMATION: Rule out osteomyelitis COMPARISON: Previous x-ray November 2008 TECHNIQUE: AP, lateral, and oblique views of the right foot. FINDINGS: Bone alignment is normal. No fracture or dislocation is seen. There is no x-ray evidence of osteomyelitis. There is soft tissue swelling over the distal great toe. No soft tissue foreign body is seen. XR/XR foot RT 2V IMPRESSION: Soft tissue swelling of the distal great toe. No x-ray evidence of osteomyelitis.
--- NOTE | ~2022-04-22 | XR_ITS ---
EXAMINATION: XR CHEST CLINICAL INFORMATION: Shortness of breath COMPARISON: Previous chest x-ray and chest CT July 2021 TECHNIQUE: Frontal view of the chest was obtained. FINDINGS: There is question of increasing volume loss to the right hemithorax. There is prominence of the right pulmonary hilum and question central right lung bronchiectasis and bronchial wall thickening. There is linear scarring or segmental atelectasis in the more peripheral right mid lung. There is evidence of old granulomatous disease with calcification in the right hilar and subcarinal regions. There are small calcified nodules in the right lung base that are stable. The left lung is clear. There is no pleural effusion. Bony structures are unremarkable. XR/XR chest 1V IMPRESSION: Question increasing volume loss to the right hemithorax, prominence of the right pulmonary hilum and central bronchiectasis and bronchial wall thickening. There is evidence of old granulomatous disease.
--- NOTE | 2022-04-22 12:27 | ED_ITS ---
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 EMS states that the patient is [place]ian speaking only. EMS states that the patient just had a medication change of stopping her Depakote all together and decreasing her respiradone. EMS states that the patient is somewhat confused at baseline secondary to dementia and psychiatric disorders. <RAFIA Macias - Last Filed: 04/22/22 17:51> Onset (ago): day(s) <RAFIA Macias - Last Filed: 04/22/22 17:51> Severity: mild <RAFIA Macias - Last Filed: 04/22/22 17:51> Severity scale (1-10): 4 <RAFIA Macias - Last Filed: 04/22/22 17:51> Relieving factors: none <RAFIA Macias - Last Filed: 04/22/22 17:51> Exacerbating factors: none <RAFIA Macias - Last Filed: 04/22/22 17:51> Associated symptoms: denies other symptoms <RAFIA Macias - Last Filed: 04/22/22 17:51> Treatments prior to arrival: none <RAFIA Macias - Last Filed: 04/22/22 17:51> Related Data Home medications: Home Medications Medication Instructions Recorded Confirmed acetylcysteine 600 mg capsule 2 cap PO BID 10/03/20 10/03/20 albuterol sulfate 90 mcg/actuation 90 mcg inhalation QID PRN Dyspnea 10/03/20 10/03/20 aerosol inhaler ammonium lactate 12 % topical cream 1 appl topical BID 10/03/20 10/03/20 clonazepam 0.5 mg tablet 1 mg PO TID 10/03/20 10/03/20 fluocinonide 0.05 % topical cream 1 applic topical DAILY PRN Itching 10/03/20 10/03/20 fluticasone 500 mcg-salmeterol 50 1 inh inhalation BID 10/03/20 10/03/20 mcg/dose blistr powdr for inhalation gabapentin 100 mg capsule 1 cap PO TID 10/03/20 10/03/20 hydroxyzine HCl 25 mg tablet 1 tab PO TID PRN Itching 10/03/20 10/03/20 insulin aspart U-100 100 unit/mL See Rx Instructions .Route .COMPLEX 10/03/20 10/03/20 (3 mL) subcutaneous pen (Novolog Flexpen U-100 Insulin aspart) insulin glargine 100 unit/mL (3 20 unit subcut BID 10/03/20 10/03/20 mL) subcutaneous pen (Lantus Solostar U-100 Insulin) metoprolol tartrate 25 mg tablet 1 tab PO BID 10/03/20 10/03/20 montelukast 10 mg tablet 1 tab PO DAILY 10/03/20 10/03/20 polyethylene glycol 3350 17 17 g PO DAILY 10/03/20 10/03/20 gram/dose oral powder risperidone 0.25 mg tablet 0.75 mg PO DAILY 10/03/20 10/03/20 risperidone 1 mg tablet 1 tab PO DAILY 10/03/20 10/03/20 tramadol 50 mg tablet 1 tab PO BID PRN Pain 10/03/20 10/03/20 triamcinolone acetonide 0.1 % 1 appl topical DAILY PRN Itching 10/03/20 10/03/20 topical cream Previous Rx's Medication Instructions Recorded levofloxacin 250 mg tablet 500 mg PO DAILY 7 days #14 tabs 03/04/21 metronidazole 500 mg tablet 500 mg PO BID 7 days #14 tabs 03/04/21 (Flagyl) <RAFIA Macias - Last Filed: 04/22/22 17:51> Allergies/adverse reactions: Allergies Allergy/AdvReac Type Severity Reaction Status Date / Time aspirin [ASA] Allergy Unknown RASH Verified 01/22/22 21:32 niacin [Niacin] Allergy Unknown Rash Verified 01/22/22 21:32 penicillin G [Penicillin G] Allergy Unknown HIVES Verified 01/22/22 21:32 penicillin V Allergy Unknown Hives Verified 01/22/22 21:32 Penicillins Allergy Unknown UNKNOWN Verified 01/22/22 21:32 rofecoxib [From Vioxx] Allergy Unknown UNKNOWN Verified 01/22/22 21:32 Iodinated Contrast Media Allergy Swelling Verified 01/22/22 21:32 [IV Contrast Dye] moxifloxacin AdvReac Nausea Verified 01/22/22 21:32 <RAFIA Macias - Last Filed: 04/22/22 17:51> Review of Systems Review of Systems: Yes Unobtainable due to mental status <RAFIA Solares - Last Filed: 04/22/22 17:51> Constitutional: Constitutional: Denies fever(s) <RAFIA Macias Last Filed: 04/22/22 17:51> Eyes: Eyes: Denies eye discharge and Denies loss of vision <RAFIA Macias Last Filed: 04/22/22 17:51> ENT: Denies dizziness and Denies neck mass <RAFIA Macias Last Filed: 04/22/22 17:51> Cardiovascular: Cardiovascular: Reports no additional cardiovascular c omplaints, Denies chest pain, Denies lightheadedness, Denies Loss of Consciousness and Denies dyspnea <RAFIA Macias Last Filed: 04/22/22 17:51> Respiratory: Respiratory: Reports no additional respiratory complaints and Denies dyspnea <RAFIA Macias Last Filed: 04/22/22 17:51> Gastrointestinal: Gastrointestinal: Denies abdominal pain and Denies change in stool character <RAFIA Macias Last Filed: 04/22/22 17:51> Genitourinary: Genitourinary: Denies hematuria, Denies urinary frequency, Denies dysuria, Denies urinary incontinence, Denies urinary hesitancy and Denies urinary urgency <RAFIA Macias Last Filed: 04/22/22 17:51> Musculoskeletal: Musculoskeletal: Reports no additional musculoskeletal complaints, Denies numbness and Denies tingling <RAFIA Macias - Last Filed: 04/22/22 17:51> Neurologic: Reports confusion, Denies dizziness, Denies loss of vision, Denies numbness and Denies tingling <RAFIA Macias - Last Filed: 04/22/22 17:51> Psychiatric: Psychiatric: Reports no additional psychiatric complaints and Reports confusion <RAFIA Macias - Last Filed: 04/22/22 17:51> Endocrine: Endocrine: Reports no additional endocrine complaints <RAFIA Macias - Last Filed: 04/22/22 17:51> Hematologic/Lymphatic: Hematologic/Lymphatic: Reports no additional hematologic/lymphatic complaints <RAFIA Macias - Last Filed: 04/22/22 17:51> Allergic/Immunologic: Allergic/Immunologic: Reports no additional allergic/immunologic complaints <RAFIA Macias - Last Filed: 04/22/22 17:51> [facility] Past Medical History Attestation statement: The following information was validated with the patient. <RAFIA Macias - Last Filed: 04/22/22 17:51> Source: old records reviewed <RAFIA Macias - Last Filed: 04/22/22 17:51> Medical History: Medical History Anemia Dementia Diabetes mellitus, type 2 Hypertension <RAFIA Macias - Last Filed: 04/22/22 17:51> Social History Social History: Social History Alcohol intake: unknown Advance Directives: Yes Advance Directives on File: Yes Advance Directives Date on File: 02/25/21 <RAFIA Macias - Last Filed: 04/22/22 17:51> Physical Exam ED Vital Signs: Vital Signs - 24 hr 04/22/22 12:28 04/22/22 16:02 04/22/22 20:00 Temperature 97.9 F 97.9 F 98.1 F Pulse Rate 81 91 72 Respiratory Rate 20 12 16 Blood Pressure 131/56 L 105/45 L 174/84 H Pulse Oximetry 97 98 97 Oxygen Delivery Method Room Air Room Air Room Air BMI result Body Mass Index 22.2 <RAFIA Macias - Last Filed: 04/22/22 17:51> Vital Signs - 24 hr 04/22/22 12:28 04/22/22 16:02 04/22/22 20:00 Temperature 97.9 F 97.9 F 98.1 F Pulse Rate 81 91 72 Respiratory Rate 20 12 16 Blood Pressure 131/56 L 105/45 L 174/84 H Pulse Oximetry 97 98 97 Oxygen Delivery Method Room Air Room Air Room Air BMI result Body Mass Index 22.2 <Ana Buckley MD - Last Filed: 04/22/22 14:56> Const General: confusion <RAFIA Macias - Last Filed: 04/22/22 17:51> Nutritional Appearance: well nourished <RAFIA Macias - Last Filed: 04/22/22 17:51> Orientation/consciousness: confusion <RAFIA Macias - Last Filed: 04/22/22 17:51> Limitations: no limitations <RAFIA Macias - Last Filed: 04/22/22 17:51> HENMT Head: Yes normal to inspection and Yes atraumatic <RAFIA Macias - Last Filed: 04/22/22 17:51> Ears: hearing grossly normal bilaterally and external ears normal <RAFIA Macias - Last Filed: 04/22/22 17:51> General nose exam: Normal external nose present, no nasal discharge noted and no epistaxis <RAFIA Macias - Last Filed: 04/22/22 17:51> Face and sinus: Yes normal facial exam, No abrasion and No laceration <RAFIA Macias - Last Filed: 04/22/22 17:51> Mouth: Normal oral and palatal mucosa present, no drooling and no muffled voice <RAFIA Macias - Last Filed: 04/22/22 17:51> Eyes General: appearance normal, both eyes and all related structures <RAFIA Macias Last Filed: 04/22/22 17:51> Periorbital: periorbital findings normal <RAFIA Macias - Last Filed: 04/22/22 17:51> Eyelids: Yes eyelids normal <Kristy Virk PA - Last Filed: 04/22/22 17:51> Conjunctivae: conjunctivae normal <Kristy Virk RAFIA - Last Filed: 04/22/22 17:51> Pupils: Equal, round and reactive pupils present <Kristy Virk PA - Last Filed: 04/22/22 17:51> EOM: EOMs intact bilaterally <Kristy VirkRAFIA - Last Filed: 04/22/22 17:51> Neck Neck: Yes normal visual inspection, Yes full ROM and Yes no lymphadenopathy <Kristy Virk PA - Last Filed: 04/22/22 17:51> Chest Chest palpation & inspection: normal inspection of the chest <Kristy VirkRAFIA - Last Filed: 04/12 11/03 17:51> Resp Effort & Inspection: normal respiratory effort and able to speak in complete sentences <Mickey Virk AK - Last Filed: 04/22/22 17:51> Auscultation: clear to auscultation bilaterally <Kristy Virk PA - Last Filed: 04/22/22 17:51> Cardio Rate: regular rate <Kristy Virk AK - Last Filed: 04/22/22 17:51> Rhythm: regular rhythm <Kristy Virk PA - Last Filed: 04/22/22 17:51> GI Inspection: Yes normal to inspection <Kristy Virk AK - Last Filed: 04/22/22 17:51> Palpation (GI): Soft to palpation, not firm, Tenderness to palpation present (GI) (diffuse), no guarding and not rigid <Kristy Virk PA - Last Filed: 04/22/22 17:51> Neuro General: confusion <Kristy Virk PA - Last Filed: 04/22/22 17:51> Cranial nerves: Yes Equal, round and reactive pupils present <Kristy VirkRAFIA - Last Filed: 04/22/22 17:51> Cognition (Neuro): abnormal cognition <Kristy VirkRAFIA - Last Filed: 04/22/22 17:51> Extrem Other: right great toe has some darkened areas with a loose nail attached <Kristy VirkRAFIA - Last Filed: 04/22/22 17:51> General: Yes full ROM and Yes capillary refill normal <RAFIA Macias - Last Filed: 04/22/22 17:51> Psych Affect: Animated affect present and Hostile affect present <RAFIA Macias - Last Filed: 04/22/22 17:51> Attitude: Belligerent attititude/behavior present <RAFIA Macias - Last Filed: 04/22/22 17:51> Thought process: Normal thought process present <RAFIA Macias - Last Filed: 04/22/22 17:51> Thought content: delusions <RAFIA Macias - Last Filed: 04/22/22 17:51> Insight: Limited insight present (Psych) <RAFIA Macias - Last Filed: 04/22/22 17:51> Course Reevaluation(s) Reevaluation #1: Called into room because patient trying to climb off of the gurney, remains exceedingly agitated. The decision was made to chemically restrain the patient with 5 mg of IM Zyprexa in combination with 50 mg of Benadryl IM. EKG was checked before hand for evidence significant QT prolongation. In addition, bladder scan, lactic acid/blood cultures were ordered. If patient appears to be in urinary retention Souza catheter should be placed, urinalysis will be sent. <Ana Buckley MD - Last Filed: 04/22/22 14:56> Time: 14:55 <Ana Buckley MD - Last Filed: 04/22/22 14:56> Medical Decision Making [facility] Narrative Medical decision making narrative: Patient is an 81 year old female presenting to the emergency department today with altered mental status and abdominal pain. Patient's physical exam showed diffuse abdominal pain with palpation and combativeness. Patient was aggressive and attempting to get up and get out of bed multiple times. Patient's blood work was unremarkable. Patient's urine showed a possible urinary tract infection. Patient's EKG was unremarkable. Patient's chest x-ray showed no acute process. Patient's right foot x-ray showed no acute process. Patient is not considered septic and at no point during my care of the patient was the patient septic. I explained my physical exam findings as well as all test results to the patient. I answered all questions asked by the patient. Patient received multiple medications to assist in keeping her calm. Patient has an abdominal CT pending. Sign out given to Dr. Hutchinson. <RAFIA Macias - Last Filed: 04/22/22 17:51> Medical Records Medical records reviewed: Yes I reviewed the patient's medical records. <RAFIA Macias - Last Filed: 04/22/22 17:51> Lab Data Lab results reviewed: Yes I reviewed the patient's lab results. <RAFIA Macias - Last Filed: 04/22/22 17:51> Result diagrams: : 04/22/22 13:26 04/22/22 13:25 <RAFIA Macias - Last Filed: 04/22/22 17:51> Labs: Lab Results 04/22/22 04/22/22 04/22/22 Range/Units 13:25 13:25 13:25 WBC (4.8-10.8) X10*3/uL RBC (4.20-5.50) X10*6/uL Hgb (12.0-16.0) g/dl Hct (37.0-47.0) % MCV (80.0-98.0) fL MCH (27.0-33.0) pg MCHC (31.0-35.0) g/dl RDW (11.0-16.0) % Plt Count MPV Immature Gran % (Auto) (0.0-0.4) % Neut % (Auto) (45-73) % Lymph % (Auto) (20-40) % [place] % (Auto) (2-11) % Eos % (Auto) (0-4) % Baso % (Auto) (0-2) % Lymph # (Auto) (1.2-4.9) X10*3/uL [place] # (Auto) (0.1-1.2) X10*3/uL Eos # (Auto) (0.0-0.4) X10*3/uL Baso # (Auto) (0.0-0.2) X10*3/uL Abs Immat Gran (auto) (0.00-0.03) X10*3/uL Absolute Neuts (auto) (2.0-8.3) x10*3/uL Absolute Nucleated RBC (0.0-0.012) X10*3/uL Nucleated RBC % (auto) (0.0-0.2) /100WBC Smear Tech's Comments D-Dimer High Sensitivty 182 NG/ML VBG pH (7.32-7.43) VBG pCO2 mmHg VBG pO2 mmHg VBG HCO3 (22-26) mmol/L VBG O2 Saturation % VBG Base Excess mmol/L Sodium 135 (135-145) mmol/L Potassium 5.1 (3.3-5.1) mmol/L Chloride 101 (96-108) mmol/L Carbon Dioxide 25 (22-29) mmol/L Anion Gap 14 (12-20) BUN 19 H (9-16) mg/dL Creatinine 1.09 (0.5-1.4) mg/dL Estim Creat Clear Calc 27.5 Estimated GFR 48 Random Glucose 210 H (60-115) mg/dL Lactic Acid 2.3 H* (0.5-2.0) mmol/L Calcium 9.4 (8.4-10.2) mg/dL Magnesium 2.0 (1.6-2.6) mg/dL Total Bilirubin 0.2 (0.0-1.0) mg/dL AST 20 (5-31) U/L ALT 21 (0-31) U/L Alkaline Phosphatase 66 (39-117) U/L Troponin I High Sens (<3.5-17.0) ng/L Total Protein 7.9 (6.5-8.0) g/dL Albumin 4.3 (3.5-5.0) g/dL Urine Color Urine Appearance Urine pH (5.0-8.0) Ur Specific [place] (1.005-1.025) Urine Protein (NEG-TRACE) MG/DL Urine Glucose (UA) (NEG) MG/DL Urine Ketones (NEG) MG/DL Urine Blood (NEG) Urine Nitrite (NEG) Ur Leukocyte Esterase (NEG) Urine RBC (0) /HPF Urine WBC (0-4) /HPF Ur Squamous Epith Cells /LPF Urine Bacteria /LPF COVID-19 (CARMEN) (Negative) COVID-19 Clin Com Influenza Type A (MERYL) (Negative) Influenza Type B (MERYL) (Negative) Influenza A & B Note 0704/22/22 04/22/22 Range/Units 13:26 13:26 13:26 WBC 6.0 (4.8-10.8) X10*3/uL RBC 4.47 (4.20-5.50) X10*6/uL Hgb 12.7 (12.0-16.0) g/dl Hct 40.0 (37.0-47.0) % MCV 89.5 (80.0-98.0) fL MCH 28.4 (27.0-33.0) pg MCHC 31.8 (31.0-35.0) g/dl RDW 13.5 (11.0-16.0) % Plt Count TNP MPV Not Reportable Immature Gran % (Auto) 0.5 H (0.0-0.4) % Neut % (Auto) 58.3 (45-73) % Lymph % (Auto) 28.7 (20-40) % [place] % (Auto) 8.7 (2-11) % Eos % (Auto) 3.5 (0-4) % Baso % (Auto) 0.3 (0-2) % Lymph # (Auto) 1.7 (1.2-4.9) X10*3/uL [place] # (Auto) 0.5 (0.1-1.2) X10*3/uL Eos # (Auto) 0.2 (0.0-0.4) X10*3/uL Baso # (Auto) 0.0 (0.0-0.2) X10*3/uL Abs Immat Gran (auto) 0.03 (0.00-0.03) X10*3/uL Absolute Neuts (auto) 3.5 (2.0-8.3) x10*3/uL Absolute Nucleated RBC 0.000 (0.0-0.012) X10*3/uL Nucleated RBC % (auto) 0.0 (0.0-0.2) /100WBC Smear Tech's Comments VERIFIED D-Dimer High Sensitivty NG/ML VBG pH (7.32-7.43) VBG pCO2 mmHg VBG pO2 mmHg VBG HCO3 (22-26) mmol/L VBG O2 Saturation % VBG Base Excess mmol/L Sodium (135-145) mmol/L Potassium (3.3-5.1) mmol/L Chloride (96-108) mmol/L Carbon Dioxide (22-29) mmol/L Anion Gap (12-20) BUN (9-16) mg/dL Creatinine (0.5-1.4) mg/dL Estim Creat Clear Calc Estimated GFR Random Glucose (60-115) mg/dL Lactic Acid (0.5-2.0) mmol/L Calcium (8.4-10.2) mg/dL Magnesium (1.6-2.6) mg/dL Total Bilirubin (0.0-1.0) mg/dL AST (5-31) U/L ALT (0-31) U/L Alkaline Phosphatase (39-117) U/L Troponin I High Sens (<3.5-17.0) ng/L Total Protein (6.5-8.0) g/dL Albumin (3.5-5.0) g/dL Urine Color Urine Appearance Urine pH (5.0-8.0) Ur Specific [place] (1.005-1.025) Urine Protein (NEG-TRACE) MG/DL Urine Glucose (UA) (NEG) MG/DL Urine Ketones (NEG) MG/DL Urine Blood (NEG) Urine Nitrite (NEG) Ur Leukocyte Esterase (NEG) Urine RBC (0) /HPF Urine WBC (0-4) /HPF Ur Squamous Epith Cells /LPF Urine Bacteria /LPF COVID-19 (CARMEN) Negative (Negative) COVID-19 Clin Com See Note Influenza Type A (MERYL) Negative (Negative) Influenza Type B (MERYL) Negative (Negative) Influenza A & B Note See Note 04/22/22 04/22/22 04/22/22 Range/Units 13:26 14:47 15:05 WBC (4.8-10.8) X10*3/uL RBC (4.20-5.50) X10*6/uL Hgb (12.0-16.0) g/dl Hct (37.0-47.0) % MCV (80.0-98.0) fL MCH (27.0-33.0) pg MCHC (31.0-35.0) g/dl RDW (11.0-16.0) % Plt Count MPV Immature Gran % (Auto) (0.0-0.4) % Neut % (Auto) (45-73) % Lymph % (Auto) (20-40) % [place] % (Auto) (2-11) % Eos % (Auto) (0-4) % Baso % (Auto) (0-2) % Lymph # (Auto) (1.2-4.9) X10*3/uL [place] # (Auto) (0.1-1.2) X10*3/uL Eos # (Auto) (0.0-0.4) X10*3/uL Baso # (Auto) (0.0-0.2) X10*3/uL Abs Immat Gran (auto) (0.00-0.03) X10*3/uL Absolute Neuts (auto) (2.0-8.3) x10*3/uL Absolute Nucleated RBC (0.0-0.012) X10*3/uL Nucleated RBC % (auto) (0.0-0.2) /100WBC Smear Tech's Comments D-Dimer High Sensitivty NG/ML VBG pH 7.36 (7.32-7.43) VBG pCO2 33 mmHg VBG pO2 55 mmHg VBG HCO3 19 L (22-26) mmol/L VBG O2 Saturation 84.0 % VBG Base Excess -5.5 mmol/L Sodium (135-145) mmol/L Potassium (3.3-5.1) mmol/L Chloride (96-108) mmol/L Carbon Dioxide (22-29) mmol/L Anion Gap (12-20) BUN (9-16) mg/dL Creatinine (0.5-1.4) mg/dL Estim Creat Clear Calc Estimated GFR Random Glucose (60-115) mg/dL Lactic Acid (0.5-2.0) mmol/L Calcium (8.4-10.2) mg/dL Magnesium (1.6-2.6) mg/dL Total Bilirubin (0.0-1.0) mg/dL AST (5-31) U/L ALT (0-31) U/L Alkaline Phosphatase (39-117) U/L Troponin I High Sens 5.4 (<3.5-17.0) ng/L Total Protein (6.5-8.0) g/dL Albumin (3.5-5.0) g/dL Urine Color YELLOW Urine Appearance HAZY Urine pH 6.0 (5.0-8.0) Ur Specific [place] 1.025 (1.005-1.025) Urine Protein 1+ H (NEG-TRACE) MG/DL Urine Glucose (UA) NEG (NEG) MG/DL Urine Ketones NEG (NEG) MG/DL Urine Blood TRACE (NEG) Urine Nitrite NEG (NEG) Ur Leukocyte Esterase 1+ H (NEG) Urine RBC 0-2 (0) /HPF Urine WBC 0-2 (0-4) /HPF Ur Squamous Epith Cells 3+ /LPF Urine Bacteria 4+ /LPF COVID-19 (CARMEN) (Negative) COVID-19 Clin Com Influenza Type A (MERYL) (Negative) Influenza Type B (MERYL) (Negative) Influenza A & B Note <RAFIA Macias - Last Filed: 04/22/22 17:51> Lab Results 04/22/22 04/22/22 04/22/22 Range/Units 13:25 13:25 13:25 WBC (4.8-10.8) X10*3/uL RBC (4.20-5.50) X10*6/uL Hgb (12.0-16.0) g/dl Hct (37.0-47.0) % MCV (80.0-98.0) fL MCH (27.0-33.0) pg MCHC (31.0-35.0) g/dl RDW (11.0-16.0) % Plt Count MPV Immature Gran % (Auto) (0.0-0.4) % Neut % (Auto) (45-73) % Lymph % (Auto) (20-40) % [place] % (Auto) (2-11) % Eos % (Auto) (0-4) % Baso % (Auto) (0-2) % Lymph # (Auto) (1.2-4.9) X10*3/uL [place] # (Auto) (0.1-1.2) X10*3/uL Eos # (Auto) (0.0-0.4) X10*3/uL Baso # (Auto) (0.0-0.2) X10*3/uL Abs Immat Gran (auto) (0.00-0.03) X10*3/uL Absolute Neuts (auto) (2.0-8.3) x10*3/uL Absolute Nucleated RBC (0.0-0.012) X10*3/uL Nucleated RBC % (auto) (0.0-0.2) /100WBC Smear Tech's Comments D-Dimer High Sensitivty 182 NG/ML VBG pH (7.32-7.43) VBG pCO2 mmHg VBG pO2 mmHg VBG HCO3 (22-26) mmol/L VBG O2 Saturation % VBG Base Excess mmol/L Sodium 135 (135-145) mmol/L Potassium 5.1 (3.3-5.1) mmol/L Chloride 101 (96-108) mmol/L Carbon Dioxide 25 (22-29) mmol/L Anion Gap 14 (12-20) BUN 19 H (9-16) mg/dL Creatinine 1.09 (0.5-1.4) mg/dL Estim Creat Clear Calc 27.5 Estimated GFR 48 Random Glucose 210 H (60-115) mg/dL Lactic Acid 2.3 H* (0.5-2.0) mmol/L Calcium 9.4 (8.4-10.2) mg/dL Magnesium 2.0 (1.6-2.6) mg/dL Total Bilirubin 0.2 (0.0-1.0) mg/dL AST 20 (5-31) U/L ALT 21 (0-31) U/L Alkaline Phosphatase 66 (39-117) U/L Troponin I High Sens (<3.5-17.0) ng/L Total Protein 7.9 (6.5-8.0) g/dL Albumin 4.3 (3.5-5.0) g/dL Urine Color Urine Appearance Urine pH (5.0-8.0) Ur Specific [place] (1.005-1.025) Urine Protein (NEG-TRACE) MG/DL Urine Glucose (UA) (NEG) MG/DL Urine Ketones (NEG) MG/DL Urine Blood (NEG) Urine Nitrite (NEG) Ur Leukocyte Esterase (NEG) Urine RBC (0) /HPF Urine WBC (0-4) /HPF Ur Squamous Epith Cells /LPF Urine Bacteria /LPF COVID-19 (CARMEN) (Negative) COVID-19 Clin Com Influenza Type A (MERYL) (Negative) Influenza Type B (MERYL) (Negative) Influenza A & B Note 04/22/22 04/22/22 04/22/22 Range/Units 13:26 13:26 13:26 WBC 6.0 (4.8-10.8) X10*3/uL RBC 4.47 (4.20-5.50) X10*6/uL Hgb 12.7 (12.0-16.0) g/dl Hct 40.0 (37.0-47.0) % MCV 89.5 (80.0-98.0) fL MCH 28.4 (27.0-33.0) pg MCHC 31.8 (31.0-35.0) g/dl RDW 13.5 (11.0-16.0) % Plt Count TNP MPV Not Reportable Immature Gran % (Auto) 0.5 H (0.0-0.4) % Neut % (Auto) 58.3 (45-73) % Lymph % (Auto) 28.7 (20-40) % [place] % (Auto) 8.7 (2-11) % Eos % (Auto) 3.5 (0-4) % Baso % (Auto) 0.3 (0-2) % Lymph # (Auto) 1.7 (1.2-4.9) X10*3/uL [place] # (Auto) 0.5 (0.1-1.2) X10*3/uL Eos # (Auto) 0.2 (0.0-0.4) X10*3/uL Baso # (Auto) 0.0 (0.0-0.2) X10*3/uL Abs Immat Gran (auto) 0.03 (0.00-0.03) X10*3/uL Absolute Neuts (auto) 3.5 (2.0-8.3) x10*3/uL Absolute Nucleated RBC 0.000 (0.0-0.012) X10*3/uL Nucleated RBC % (auto) 0.0 (0.0-0.2) /100WBC Smear Tech's Comments VERIFIED D-Dimer High Sensitivty NG/ML VBG pH (7.32-7.43) VBG pCO2 mmHg VBG pO2 mmHg VBG HCO3 (22-26) mmol/L VBG O2 Saturation % VBG Base Excess mmol/L Sodium (135-145) mmol/L Potassium (3.3-5.1) mmol/L Chloride (96-108) mmol/L Carbon Dioxide (22-29) mmol/L Anion Gap (12-20) BUN (9-16) mg/dL Creatinine (0.5-1.4) mg/dL Estim Creat Clear Calc Estimated GFR Random Glucose (60-115) mg/dL Lactic Acid (0.5-2.0) mmol/L Calcium (8.4-10.2) mg/dL Magnesium (1.6-2.6) mg/dL Total Bilirubin (0.0-1.0) mg/dL AST (5-31) U/L ALT (0-31) U/L Alkaline Phosphatase (39-117) U/L Troponin I High Sens (<3.5-17.0) ng/L Total Protein (6.5-8.0) g/dL Albumin (3.5-5.0) g/dL Urine Color Urine Appearance Urine pH (5.0-8.0) Ur Specific [place] (1.005-1.025) Urine Protein (NEG-TRACE) MG/DL Urine Glucose (UA) (NEG) MG/DL Urine Ketones (NEG) MG/DL Urine Blood (NEG) Urine Nitrite (NEG) Ur Leukocyte Esterase (NEG) Urine RBC (0) /HPF Urine WBC (0-4) /HPF Ur Squamous Epith Cells /LPF Urine Bacteria /LPF COVID-19 (CARMEN) Negative (Negative) COVID-19 Clin Com See Note Influenza Type A (MERYL) Negative (Negative) Influenza Type B (MERYL) Negative (Negative) Influenza A & B Note See Note 04/22/22 04/22/22 04/22/22 Range/Units 13:26 14:47 15:05 WBC (4.8-10.8) X10*3/uL RBC (4.20-5.50) X10*6/uL Hgb (12.0-16.0) g/dl Hct (37.0-47.0) % MCV (80.0-98.0) fL MCH (27.0-33.0) pg MCHC (31.0-35.0) g/dl RDW (11.0-16.0) % Plt Count MPV Immature Gran % (Auto) (0.0-0.4) % Neut % (Auto) (45-73) % Lymph % (Auto) (20-40) % [place] % (Auto) (2-11) % Eos % (Auto) (0-4) % Baso % (Auto) (0-2) % Lymph # (Auto) (1.2-4.9) X10*3/uL [place] # (Auto) (0.1-1.2) X10*3/uL Eos # (Auto) (0.0-0.4) X10*3/uL Baso # (Auto) (0.0-0.2) X10*3/uL Abs Immat Gran (auto) (0.00-0.03) X10*3/uL Absolute Neuts (auto) (2.0-8.3) x10*3/uL Absolute Nucleated RBC (0.0-0.012) X10*3/uL Nucleated RBC % (auto) (0.0-0.2) /100WBC Smear Tech's Comments D-Dimer High Sensitivty NG/ML VBG pH 7.36 (7.32-7.43) VBG pCO2 33 mmHg VBG pO2 55 mmHg VBG HCO3 19 L (22-26) mmol/L VBG O2 Saturation 84.0 % VBG Base Excess -5.5 mmol/L Sodium (135-145) mmol/L Potassium (3.3-5.1) mmol/L Chloride (96-108) mmol/L Carbon Dioxide (22-29) mmol/L Anion Gap (12-20) BUN (9-16) mg/dL Creatinine (0.5-1.4) mg/dL Estim Creat Clear Calc Estimated GFR Random Glucose (60-115) mg/dL Lactic Acid (0.5-2.0) mmol/L Calcium (8.4-10.2) mg/dL Magnesium (1.6-2.6) mg/dL Total Bilirubin (0.0-1.0) mg/dL AST (5-31) U/L ALT (0-31) U/L Alkaline Phosphatase (39-117) U/L Troponin I High Sens 5.4 (<3.5-17.0) ng/L Total Protein (6.5-8.0) g/dL Albumin (3.5-5.0) g/dL Urine Color YELLOW Urine Appearance HAZY Urine pH 6.0 (5.0-8.0) Ur Specific [place] 1.025 (1.005-1.025) Urine Protein 1+ H (NEG-TRACE) MG/DL Urine Glucose (UA) NEG (NEG) MG/DL Urine Ketones NEG (NEG) MG/DL Urine Blood TRACE (NEG) Urine Nitrite NEG (NEG) Ur Leukocyte Esterase 1+ H (NEG) Urine RBC 0-2 (0) /HPF Urine WBC 0-2 (0-4) /HPF Ur Squamous Epith Cells 3+ /LPF Urine Bacteria 4+ /LPF COVID-19 (CARMEN) (Negative) COVID-19 Clin Com Influenza Type A (MERYL) (Negative) Influenza Type B (MERYL) (Negative) Influenza A & B Note <Ana Buckley MD - Last Filed: 04/22/22 14:56> Imaging Data Chest x-ray: Attestation: I personally reviewed and interpreted this imaging study as follows: <RAFIA Macias - Last Filed: 04/22/22 17:51> My impression: No acute process. <RAFIA Macias - Last Filed: 04/22/22 17:51> Radiologist's impression: EXAMINATION: XR CHEST CLINICAL INFORMATION: Shortness of breath COMPARISON: Previous chest x-ray and chest CT July 2021 TECHNIQUE: Frontal view of the chest was obtained. FINDINGS: There is question of increasing volume loss to the right hemithorax. There is prominence of the right pulmonary hilum and question central right lung bronchiectasis and bronchial wall thickening. There is linear scarring or segmental atelectasis in the more peripheral right mid lung. There is evidence of old granulomatous disease with calcification in the right hilar and subcarinal regions. There are small calcified nodules in the right lung base that are stable. The left lung is clear. There is no pleural effusion. Bony structures are unremarkable. XR/XR chest 1V IMPRESSION: Question increasing volume loss to the right hemithorax, prominence of the right pulmonary hilum and central bronchiectasis and bronchial wall thickening. There is evidence of old granulomatous disease. Dictated By: Ana Santoyo MD Signed By: Electronically signed by Ana Santoyo MD 04/22/22 1441 <RAFIA Macias - Last Filed: 04/22/22 17:51> Right foot x-ray: Attestation: I personally reviewed and interpreted this imaging study as follows: <RAFIA Macias - Last Filed: 04/22/22 17:51> My impression: No acute process. <RAFIA Macias - Last Filed: 04/22/22 17:51> Radiologist's impression: EXAMINATION: XR FOOT, RIGHT CLINICAL INFORMATION: Rule out osteomyelitis? COMPARISON: Previous x-ray November 2008 TECHNIQUE: AP, lateral, and oblique views of the right foot. FINDINGS: Bone alignment is normal. No fracture or dislocation is seen. There is no x-ray evidence of osteomyelitis. There is soft tissue swelling over the distal great toe. No soft tissue foreign body is seen. XR/XR foot RT 2V IMPRESSION: Soft tissue swelling of the distal great toe. No x-ray evidence of osteomyelitis. Dictated By: Ana Santoyo MD Signed By: Electronically signed by Ana Santoyo MD 04/22/22 1448 <RAFIA Macias - Last Filed: 04/22/22 17:51> ECG Data Attestation: I personally reviewed and interpreted this ECG as follows: <RAFIA Macias - Last Filed: 04/22/22 17:51> Prior ECG tracings: available for review <RAFIA Macias - Last Filed: 04/22/22 17:51> Interpretation: Vent. Rate: 083 BPM ? ? Atrial Rate: 083 BPM P-R Int: 142 ms? QRS Dur: 112 ms QT Int: 402 ms ? ? ? P-R-T Axes: 065 040 111 degrees QTc Int: 472 ms ? Normal sinus rhythm Incomplete left bundle branch block Nonspecific ST and T wave abnormality Prolonged QT Abnormal ECG When compared with ECG of 04-MAR-2021 19:35, No significant change was found DD/ 1255 <RAFIA Macias - Last Filed: 04/22/22 17:51> Critical Care Time Critical Care Time Critical Care Time: Yes <RAFIA Macias Last Filed: 04/22/22 17:51> Total Critical Care Time: 30 <RAFIA Macias - Last Filed: 04/22/22 17:51> Attestation: I spent 30 minutes of Critical Care Time with this patient. This does not include time spent on separately reported billable procedures. <RAFIA Macias - Last Filed: 04/22/22 17:51> Discharge Plan Discharge Clinical Impression: Dementia <RAFIA Macias - Last Filed: 04/22/22 17:51> Patient Disposition: Still a Patient <RAFIA Macias - Last Filed: 04/22/22 17:51> Instructions: Dementia (ED) <RAFIA Macias - Last Filed: 04/22/22 17:51> Prescriptions: No Action montelukast 10 mg tablet 1 tab PO DAILY metoprolol tartrate 25 mg tablet 1 tab PO BID acetylcysteine 600 mg capsule 2 cap PO BID clonazepam 0.5 mg tablet 1 mg PO TID risperidone 0.25 mg tablet 0.75 mg PO DAILY Rx Instructions: Give at 18:00 gabapentin 100 mg capsule 1 cap PO TID polyethylene glycol 3350 17 gram/dose powder 17 g PO DAILY risperidone 1 mg tablet 1 tab PO DAILY tramadol 50 mg tablet 1 tab PO BID PRN (Reason: Pain) triamcinolone acetonide 0.1 % cream 1 appl topical DAILY PRN (Reason: Itching) fluticasone propion-salmeterol 500-50 mcg/dose blister with device 1 inh inhalation BID hydroxyzine HCl 25 mg tablet 1 tab PO TID PRN (Reason: Itching) ammonium lactate 12 % cream 1 appl topical BID albuterol sulfate 90 mcg/actuation HFA aerosol inhaler 90 mcg inhalation QID PRN (Reason: Dyspnea) fluocinonide 0.05 % cream 1 applic topical DAILY PRN (Reason: Itching) insulin aspart U-100 [Novolog Flexpen U-100 Insulin] 100 unit/mL (3 mL) insulin pen See Rx Instructions .ROUTE .COMPLEX Rx Instructions: With meals and at bedtime Sliding scale Lantus Solostar U-100 Insulin 100 unit/mL (3 mL) insulin pen 20 unit subcut BID metronidazole [Flagyl] 500 mg tablet 500 mg PO BID 7 Days Qty: 14 0RF levofloxacin 250 mg tablet 500 mg PO DAILY 7 Days Qty: 14 0RF <RAFIA Macias - Last Filed: 04/22/22 17:51> Print Language: Colombian <RAFIA Macias - Last Filed: 04/22/22 17:51>
[2022-04-22 12:28] VITALS: BP 120/78; BP 131/56; PULSE 81; PULSE 83; RESP 20; TEMP 36.6; O2SAT 97; BMI 22.2
--- NOTE | 2022-04-22 12:33 | ECG_ITS ---
Test Reason : ams Blood Pressure : / mmHG Vent. Rate : 083 BPM Atrial Rate : 083 BPM P-R Int : 142 ms QRS Dur : 112 ms QT Int : 402 ms P-R-T Axes : 065 040 111 degrees QTc Int : 472 ms Normal sinus rhythm Incomplete left bundle branch block Nonspecific ST and T wave abnormality Prolonged QT Abnormal ECG When compared with ECG of 04-MAR-2021 19:35, No significant change was found Referred By: Kristy Virk Electronically Signed By:LIVE REYNAGA MD
[2022-04-22] MEDS: OLANZapine 5 MG TABLET PO (13:17)
[2022-04-22 13:31] LABS: VBG Base Excess -5.5 mmol/L; VBG HCO3 19 mmol/L (22-26); VBG pCO2 33 mmHg; VBG pH 7.36 (7.32-7.43); VBG pO2 55 mmHg
[2022-04-22 13:42] LABS: Basophils Percent Auto 0.3 % (0-2); Eosinophils Absolute Auto 0.2 X10*3/uL (0.0-0.4); Eosinophils Percent Auto 3.5 % (0-4); Hemoglobin 12.7 g/dl (12.0-16.0); Imm Gran Abs Auto 0.03 X10*3/uL (0.00-0.03); Imm Gran Pct Auto 0.5 % (0.0-0.4); Lymphocytes Absolute Auto 1.7 X10*3/uL (1.2-4.9); Lymphocytes Percent Auto 28.7 % (20-40); MANUAL DIFF FLAG SCAN; Mean Corpuscular HGB Conc 31.8 g/dl (31.0-35.0); Mean Corpuscular Hemoglobin 28.4 pg (27.0-33.0); Mean Corpuscular Volume 89.5 fL (80.0-98.0); Monocytes Absolute Auto 0.5 X10*3/uL (0.1-1.2); Monocytes Percent Auto 8.7 % (2-11); Neutrophils Absolute Auto 3.5 x10*3/uL (2.0-8.3); Neutrophils Percent Auto 58.3 % (45-73); PLT CLUMP 1; Red Blood Count 4.47 X10*6/uL (4.20-5.50); Red Cell Distribution Width 13.5 % (11.0-16.0); SCAN SMEAR FLAG 1
[2022-04-22 13:45] LABS: D Dimer High Sensitivity 182 NG/ML
[2022-04-22 13:52] LABS: Alanine Aminotransferase 21 U/L (0-31); Albumin Level 4.3 g/dL (3.5-5.0); Alkaline Phosphatase 66 U/L (39-117); Anion Gap 14 (12-20); Aspartate Amino Transferase 20 U/L (5-31); Bilirubin Total 0.2 mg/dL (0.0-1.0); Blood Urea Nitrogen 19 mg/dL (9-16); Calcium 9.4 mg/dL (8.4-10.2); Carbon Dioxide 25 mmol/L (22-29); Chloride 101 mmol/L (96-108); Creatinine Clr Calc Pharmacy 27.5; Estimated Glomerular Filt Rate 48; Glucose Random 210 mg/dL (60-115); Lactic Acid 2.3 mmol/L (0.5-2.0); Potassium 5.1 mmol/L (3.3-5.1); Sodium 135 mmol/L (135-145); Total Protein 7.9 g/dL (6.5-8.0)
[2022-04-22 14:04] LABS: COVID-19 Test Negative (Negative); IDNOW Serial# 16C4AD1C; Influenza A Negative (Negative); Influenza B2 Negative (Negative)
[2022-04-22 14:26] LABS: SLIDE REVIEW VERIFIED
[2022-04-22 14:31] LABS: Venous Blood Gas Refer to POC result
[2022-04-22] MEDS: diphenhydrAMINE HCL 50 MG/ML VIAL IM (15:07)
[2022-04-22] MEDS: OLANZapine 10 MG VIAL 5 MG IM (15:07)
--- NOTE | 2022-04-22 15:07 | PC.NURSE ---
RN assumed care of pt, pt agitated/combative attempting to hit/bite staff while trying to get blood/get vitals.
[2022-04-22 15:12] LABS: Appearance Urine HAZY; Color Urine YELLOW; Glucose Urine UA NEG (NEG); Leukocyte Esterase Urine 1+ (NEG); Nitrite Urine NEG (NEG); Specific Gravity - Urine 1.025 (1.005-1.025); UACC Culture Trigger YES; Urine Blood TRACE (NEG); Urine Ketones NEG (NEG); Urine Protein 1+ MG/DL (NEG-TRACE)
[2022-04-22 15:18] LABS: Bacteria Urine 4+ /LPF; Squamous Epithelial Cell Urine 3+ /LPF
[2022-04-22 15:19] LABS: Troponin-I High Sensitivity 5.4 ng/L (<3.5-17.0)
[2022-04-22 15:19] LABS: WBC Urine 0-2 /HPF (0-4)
[2022-04-22 15:20] LABS: RBC Urine 0-2 /HPF (0)
[2022-04-22 15:32] LABS: Reflex Lactate? Lactic Acid Added
[2022-04-22 16:02] VITALS: BP 105/45; PULSE 91; RESP 12; TEMP 36.6; O2SAT 98
[2022-04-22] MEDS: Midazolam HCl/PF 2 MG/2 ML VIAL IM (17:05)
[2022-04-22 20:00] VITALS: BP 174/84; PULSE 72; RESP 16; TEMP 36.7; O2SAT 97
--- NOTE | 2022-04-22 20:43 | MHC.CARE ---
Addendum entered by Val Kelly, [facility] 04/22/22 21:44: Psych consult in the morning. Original Note: CARE team support requested by ED physician re: pt who was sent to the ED from [facility] s/p agitation, combativeness, and sexually inappropriate behavior. Pt has been medically cleared and it needs to be determined whether pt can return to the facility without a crisis evaluation or psychiatry consultation. [place] noting is that there have been recent, significant changes to the pt's medications. This ad copy writer attempted to contact [facility] several times, calling each nursing station twice, unable to get in contact with facility staff. Smart sheet was completed for referral to [facility].
[2022-04-22 23:07] LABS: ~Lactic Acid-LAB USE ONLY 3.5 mmol/L (0.5-2.0)
[2022-04-23] VITALS: PULSE 78; RESP 16; TEMP 37.1; O2SAT 98
[2022-04-23] MEDS: 0.9 % Sodium Chloride 1,000 ML 999 ML IV (00:15)
[2022-04-23 00:48] LABS: Reflex Lactate? 2 Y
[2022-04-23] MEDS: diphenhydrAMINE HCL 50 MG/ML VIAL 25 MG IM (01:05)
[2022-04-23] MEDS: Haloperidol Lactate 5 MG/ML VIAL IM (01:06)
--- NOTE | 2022-04-23 01:12 | PC.NURSE ---
pt increasingly agitated, combative, attempting to pull out evans/IV line. medicated per provider order.
[2022-04-23 02:24] VITALS: BP 186/96; PULSE 82; RESP 16; TEMP 36.6; O2SAT 96
[2022-04-23 02:46] LABS: ~Lactic Acid-LAB USE ONLY 1.1 mmol/L (0.5-2.0)
[2022-04-23] MEDS: Morphine Sulfate 2 MG/ML CARTRIDGE IVPUSH (03:48)
--- NOTE | 2022-04-23 03:52 | PC.NURSE ---
medicated for pain, pt reporting abd pain/headache.
--- NOTE | 2022-04-23 04:52 | PC.NURSE ---
pt denies pain at this time, refusing vitals - ate tuna sandwich and pudding.
[2022-04-23 06:50] VITALS: BP 128/80; PULSE 58; RESP 16; O2SAT 98
--- NOTE | 2022-04-23 12:08 | PM.PSYCN ---
History of Present Illness Date of Service: 04/23/2022 Chief Complaint: PSYCH EPISODE,COMBATIVE FROM SNF PER EMS Requesting physician: Kristy Virk Discussed with referring provider: Yes Sources of Information: patient interviewed, chart reviewed and crisis/core team assessment reviewed Additional Sources of Information: called staff from [facility] HPI Narrative: Mrs. Fernandez is a 81 year-old woman with hx of dementia, brought to [facility] ED via EMS after staff called 911 as pt presented as combative, hitting other residents and staff, not able to be redirected. This editorial writer spoke with RN who takes care of her for ther past 3 months. RN reports that pt before although combative able to be redirected. RN at [facility] reports that pt was on depakote 125mg po qhs and risperidone 0.25mg po BID which was discontinued on 03/14/2022 as it was thought at the time was not having any therapeutic effect in terms of combative behaviors. However, RN at [facility] notes that agitation and combativeness significantly worsened in last few weeks. In the ED, last night, pt combative at night, pulling IV and catheter, requiring IM olanzapine. This editorial writer met with pt, she is somnolent, opens eyes when named called. She denies any pain. She reports she lives here in the hospital. She is not able to tell the place, year, situation. This editorial writer tried calling pt's psychiatric provider, odell JULIO. However, per RN from [facility], plan was to restart depakote and risperidone. RN denies any side effects with depakote including high ammonia. Review of Systems Review of Systems Yes Unobtainable due to mental status Constitutional: Denies fever(s) Eyes: Denies eye discharge and Denies loss of vision Denies dizziness and Denies neck mass Cardiovascular: Reports no additional cardiovascular complaints, Denies chest pain, Denies lightheadedness, Denies Loss of Consciousness and Denies dyspnea Respiratory: Reports no additional respiratory complaints and Denies dyspnea Gastrointestinal: Denies abdominal pain and Denies change in stool character Musculoskeletal: Reports no additional musculoskeletal complaints, Denies numbness and Denies tingling Reports confusion, Denies dizziness, Denies loss of vision, Denies numbness and Denies tingling Psychiatric: Reports no additional psychiatric complaints and Reports confusion Endocrine: Reports no additional endocrine complaints Hematologic/Lymphatic: Reports no additional hematologic/lymphatic complaints Allergic/Immunologic: Reports no additional allergic/immunologic complaints [facility] Medical History Anemia Dementia Diabetes mellitus, type 2 Hypertension Diagnostics Vital Signs (24Hr): Vital Signs - 24 hr 04/22/22 20:00 04/23/22 00:00 04/23/22 02:24 Temperature 98.1 F 98.7 F 97.9 F Pulse Rate 72 78 82 Respiratory Rate 16 16 16 Blood Pressure 174/84 H 186/96 H Pulse Oximetry 97 98 96 Oxygen Delivery Method Room Air Room Air 04/23/22 06:50 04/23/22 15:50 Temperature 97.8 F Pulse Rate 58 73 Respiratory Rate 16 16 Blood Pressure 128/80 133/67 Pulse Oximetry 98 98 Oxygen Delivery Method Room Air Room Air BMI result Body Mass Index 22.2 Labs Results: 04/22/22 13:26 04/22/22 13:25 Labs: Laboratory Results - last 48 hr 04/22/22 04/22/22 04/22/22 13:25 13:25 13:25 WBC RBC Hgb Hct MCV MCH MCHC RDW Plt Count MPV Immature Gran % (Auto) Neut % (Auto) Lymph % (Auto) [place] % (Auto) Eos % (Auto) Baso % (Auto) Lymph # (Auto) [place] # (Auto) Eos # (Auto) Baso # (Auto) Abs Immat Gran (auto) Absolute Neuts (auto) Absolute Nucleated RBC Nucleated RBC % (auto) Smear Tech's Comments D-Dimer High Sensitivty 182 VBG pH VBG pCO2 VBG pO2 VBG HCO3 VBG O2 Saturation VBG Base Excess Sodium 135 Potassium 5.1 Chloride 101 Carbon Dioxide 25 Anion Gap 14 BUN 19 H Creatinine 1.09 Estim Creat Clear Calc 27.5 Estimated GFR 48 Random Glucose 210 H Lactic Acid 2.3 H* Lactic Acid F/U @ 2Hr Lactic Acid F/U @ 4Hr Calcium 9.4 Magnesium 2.0 Total Bilirubin 0.2 AST 20 ALT 21 Alkaline Phosphatase 66 Troponin I High Sens Total Protein 7.9 Albumin 4.3 Urine Color Urine Appearance Urine pH Ur Specific [place] Urine Protein Urine Glucose (UA) Urine Ketones Urine Blood Urine Nitrite Ur Leukocyte Esterase Urine RBC Urine WBC Ur Squamous Epith Cells Urine Bacteria COVID-19 (CARMEN) COVID-19 Clin Com Influenza Type A (MERYL) Influenza Type B (MERYL) Influenza A & B Note 04/22/22 04/22/22 04/22/22 13:26 13:26 13:26 WBC 6.0 RBC 4.47 Hgb 12.7 Hct 40.0 MCV 89.5 MCH 28.4 MCHC 31.8 RDW 13.5 Plt Count TNP MPV Not Reportable Immature Gran % (Auto) 0.5 H Neut % (Auto) 58.3 Lymph % (Auto) 28.7 [place] % (Auto) 8.7 Eos % (Auto) 3.5 Baso % (Auto) 0.3 Lymph # (Auto) 1.7 [place] # (Auto) 0.5 Eos # (Auto) 0.2 Baso # (Auto) 0.0 Abs Immat Gran (auto) 0.03 Absolute Neuts (auto) 3.5 Absolute Nucleated RBC 0.000 Nucleated RBC % (auto) 0.0 Smear Tech's Comments VERIFIED D-Dimer High Sensitivty VBG pH VBG pCO2 VBG pO2 VBG HCO3 VBG O2 Saturation VBG Base Excess Sodium Potassium Chloride Carbon Dioxide Anion Gap BUN Creatinine Estim Creat Clear Calc Estimated GFR Random Glucose Lactic Acid Lactic Acid F/U @ 2Hr Lactic Acid F/U @ 4Hr Calcium Magnesium Total Bilirubin AST ALT Alkaline Phosphatase Troponin I High Sens Total Protein Albumin Urine Color Urine Appearance Urine pH Ur Specific [place] Urine Protein Urine Glucose (UA) Urine Ketones Urine Blood Urine Nitrite Ur Leukocyte Esterase Urine RBC Urine WBC Ur Squamous Epith Cells Urine Bacteria COVID-19 (CARMEN) Negative COVID-19 Clin Com See Note Influenza Type A (MERYL) Negative Influenza Type B (MERYL) Negative Influenza A & B Note See Note 04/22/22 04/22/22 04/22/22 13:26 14:47 15:05 WBC RBC Hgb Hct MCV MCH MCHC RDW Plt Count MPV Immature Gran % (Auto) Neut % (Auto) Lymph % (Auto) [place] % (Auto) Eos % (Auto) Baso % (Auto) Lymph # (Auto) [place] # (Auto) Eos # (Auto) Baso # (Auto) Abs Immat Gran (auto) Absolute Neuts (auto) Absolute Nucleated RBC Nucleated RBC % (auto) Smear Tech's Comments D-Dimer High Sensitivty VBG pH 7.36 VBG pCO2 33 VBG pO2 55 VBG HCO3 19 L VBG O2 Saturation 84.0 VBG Base Excess -5.5 Sodium Potassium Chloride Carbon Dioxide Anion Gap BUN Creatinine Estim Creat Clear Calc Estimated GFR Random Glucose Lactic Acid Lactic Acid F/U @ 2Hr Lactic Acid F/U @ 4Hr Calcium Magnesium Total Bilirubin AST ALT Alkaline Phosphatase Troponin I High Sens 5.4 Total Protein Albumin Urine Color YELLOW Urine Appearance HAZY Urine pH 6.0 Ur Specific [place] 1.025 Urine Protein 1+ H Urine Glucose (UA) NEG Urine Ketones NEG Urine Blood TRACE Urine Nitrite NEG Ur Leukocyte Esterase 1+ H Urine RBC 0-2 Urine WBC 0-2 Ur Squamous Epith Cells 3+ Urine Bacteria 4+ COVID-19 (CARMEN) COVID-19 Clin Com Influenza Type A (MERYL) Influenza Type B (MERYL) Influenza A & B Note 04/22/22 04/23/22 22:46 02:32 WBC RBC Hgb Hct MCV MCH MCHC RDW Plt Count MPV Immature Gran % (Auto) Neut % (Auto) Lymph % (Auto) [place] % (Auto) Eos % (Auto) Baso % (Auto) Lymph # (Auto) [place] # (Auto) Eos # (Auto) Baso # (Auto) Abs Immat Gran (auto) Absolute Neuts (auto) Absolute Nucleated RBC Nucleated RBC % (auto) Smear Tech's Comments D-Dimer High Sensitivty VBG pH VBG pCO2 VBG pO2 VBG HCO3 VBG O2 Saturation VBG Base Excess Sodium Potassium Chloride Carbon Dioxide Anion Gap BUN Creatinine Estim Creat Clear Calc Estimated GFR Random Glucose Lactic Acid Lactic Acid F/U @ 2Hr 3.5 H* Lactic Acid F/U @ 4Hr 1.1 Calcium Magnesium Total Bilirubin AST ALT Alkaline Phosphatase Troponin I High Sens Total Protein Albumin Urine Color Urine Appearance Urine pH Ur Specific [place] Urine Protein Urine Glucose (UA) Urine Ketones Urine Blood Urine Nitrite Ur Leukocyte Esterase Urine RBC Urine WBC Ur Squamous Epith Cells Urine Bacteria COVID-19 (CARMEN) COVID-19 Clin Com Influenza Type A (MERYL) Influenza Type B (MERYL) Influenza A & B Note Imaging Radiology Impressions: ITS Impressions Chest X-Ray 04/22/22 13:45 IMPRESSION: Question increasing volume loss to the right hemithorax, prominence of the right pulmonary hilum and central bronchiectasis and bronchial wall thickening. There is evidence of old granulomatous disease. Foot X-Ray 04/22/22 13:50 IMPRESSION: Soft tissue swelling of the distal great toe. No x-ray evidence of osteomyelitis. Abdomen/Pelvis CT 04/22/22 18:45 IMPRESSION: 1. No acute intra-abdominal process identified. 2. Colonic diverticulosis. No evidence of acute diverticulitis. 3. Status post cholecystectomy. 4. Prominently distended urinary bladder. Correlate clinically with bladder dysfunction or with difficulty voiding. Mental Status Exam Mental Status Exam Narrative: Appearance: MO, wearing hospital gown, somnolent but in NAD Behavior:jose juan engagement due to somnolence psychomotor:somnolent Speech:single word Thought process: Thought content: Mood:unable to assess Affect: somnolent SI:unable to assess HI:unable to assess VH/AH:none Delusions:none Insight/judgment:impaired x 2. Memory/cog: alert, impaired s/s to dementia. Medications Medications Current Medications Divalproex Sodium (Divalproex Sodium Sprinkles 125 Mg ) 125 mg PO BEDTIME DANIELLE Allergies Allergies Allergy/AdvReac Type Severity Reaction Status Date / Time aspirin [ASA] Allergy Unknown RASH Verified 01/22/22 21:32 niacin [Niacin] Allergy Unknown Rash Verified 01/22/22 21:32 penicillin G [Penicillin G] Allergy Unknown HIVES Verified 01/22/22 21:32 penicillin V Allergy Unknown Hives Verified 01/22/22 21:32 Penicillins Allergy Unknown UNKNOWN Verified 01/22/22 21:32 rofecoxib [From Vioxx] Allergy Unknown UNKNOWN Verified 01/22/22 21:32 Iodinated Contrast Media Allergy Swelling Verified 01/22/22 21:32 [IV Contrast Dye] moxifloxacin AdvReac Nausea Verified 01/22/22 21:32 Assessment & Plan Assessment & Plan (1) Major neurocognitive disorder due to another medical condition with behavioral disturbance: Status: Acute Code(s): F02.81 - Dementia in other diseases classified elsewhere with behavioral disturbance Plan Mrs. Fernandez is a 81 y/o Armenian Speaking woman brought in to [facility] ED due to combativeness, it appears in setting of recent d/c of depakote and risperidone. Per RN at [facility] no side effects and reason for d/c due to at the time thought of not having any therapeutic benefit in terms of agitation. This editorial writer left VM to psych provider. Liver function stable, does appear to have CKD. Will restart low dose of depakote 125mg po qhs and risperidone 0.5mg po BID. Pt can return to SNF with psych providers. I spent minutes with the patient and/or on the patient floor today, greater than?50% of which was spent counseling/coordinating care.
[2022-04-23 15:50] VITALS: BP 133/67; PULSE 73; RESP 16; TEMP 36.6; O2SAT 98
--- NOTE | 2022-04-23 15:51 | PC.NURSE ---
pt is going back to SNIF at 1800 per [facility]
[2022-04-23 18:00] VITALS: BP 134/82; PULSE 74; RESP 16; TEMP 36.1; O2SAT 98
== END 2022-04-23 19:08 | disposition skilled nursing facility (03) ==
PROVIDERS: Physician Assistant Medical; Emergency Provider Student in an Organized Health Care Education/Training Program
DX: R41.82 Altered mental status, unspecified (principal); F02.81 Dementia in other diseases classified elsewhere, unspecified severity, with behavioral disturbance; F05 Delirium due to known physiological condition; R30.0 Dysuria; M79.672 Pain in left foot; M79.671 Pain in right foot; R10.9 Unspecified abdominal pain; R07.89 Other chest pain; Z20.822 Contact with and (suspected) exposure to COVID-19; Z79.899 Other long term (current) drug therapy
CPT/HCPCS: 36415; 51702; 51798; 71045; 73620; 74176; 80053; 81001; 82803; 83605; 83735; 84484; 85025; 85379; 87040; 87086; 87147; 87205; 87502; 87635; 93005; 96372; 96374; 99285; J1200; J2250; J2270

== ENCOUNTER → 2022-04-26 09:23 | Outpatient (BNVA) | payer OTHER, MEDICAID, SELFPAY | PROVIDERS: PCP Family Medicine; Referring Provider Family Medicine; Visit Provider Surgery | DX: L97.519 Non-pressure chronic ulcer of other part of right foot with unspecified severity (principal); F03.90 Unspecified dementia, unspecified severity, without behavioral disturbance, psychotic disturbance, mood disturbance, and anxiety | CPT/HCPCS: 99202 ==

== ENCOUNTER 2022-04-30 14:12 | Emergency (ER) | payer OTHER, SELFPAY ==
--- NOTE | ~2022-04-30 | XR_ITS ---
EXAMINATION: Right great toe CLINICAL INFORMATION: Ulceration COMPARISON: None TECHNIQUE: 3 views of the right toes were obtained. FINDINGS: There is air in the soft tissues of the nailbed of the great toe. No radiopaque foreign body. No focal bone lesion. No bone destruction. No radiographic evidence for osteomyelitis. No fracture. Linear soft tissue calcification at the dorsum of the first toe adjacent to the proximal phalange is chronic. No associated soft tissue swelling. XR/XR toe RT min 2V IMPRESSION: Air in the soft tissues of the nailbed of the great toe. No radiographic evidence for osteomyelitis.
--- NOTE | 2022-04-30 14:49 | ED.PSYCH ---
HPI - Psych General Chief Complaint: General Medical Stated Complaint: AGGRESIVE/ASSAULT TO STAFF @ SNF Time Seen by Provider: 04/30/22 14:42 Source: patient Mode of arrival: ambulatory Limitations: altered mental status History of Present Illness HPI Narrative: 81 year old female presents to the ED agitated was here with simliar agitation and fighting staff and other patients. Patient arrives agitated and fighting and swing at de. MD complaint: feels depressed, altered mental status and anxiety Related Data Home Medications Medication Instructions Recorded Confirmed acetylcysteine 600 mg capsule 2 cap PO BID 10/03/20 10/03/20 albuterol sulfate 90 mcg/actuation 90 mcg inhalation QID PRN Dyspnea 10/03/20 10/03/20 aerosol inhaler ammonium lactate 12 % topical cream 1 appl topical BID 10/03/20 10/03/20 clonazepam 0.5 mg tablet 1 mg PO TID 10/03/20 10/03/20 fluocinonide 0.05 % topical cream 1 applic topical DAILY PRN Itching 10/03/20 10/03/20 fluticasone 500 mcg-salmeterol 50 1 inh inhalation BID 10/03/20 10/03/20 mcg/dose blistr powdr for inhalation gabapentin 100 mg capsule 1 cap PO TID 10/03/20 10/03/20 hydroxyzine HCl 25 mg tablet 1 tab PO TID PRN Itching 10/03/20 10/03/20 insulin aspart U-100 100 unit/mL See Rx Instructions .Route .COMPLEX 10/03/20 10/03/20 (3 mL) subcutaneous pen (Novolog Flexpen U-100 Insulin aspart) insulin glargine 100 unit/mL (3 20 unit subcut BID 10/03/20 10/03/20 mL) subcutaneous pen (Lantus Solostar U-100 Insulin) metoprolol tartrate 25 mg tablet 1 tab PO BID 10/03/20 10/03/20 montelukast 10 mg tablet 1 tab PO DAILY 10/03/20 10/03/20 polyethylene glycol 3350 17 17 g PO DAILY 10/03/20 10/03/20 gram/dose oral powder risperidone 0.25 mg tablet 0.75 mg PO DAILY 10/03/20 10/03/20 risperidone 1 mg tablet 1 tab PO DAILY 10/03/20 10/03/20 tramadol 50 mg tablet 1 tab PO BID PRN Pain 10/03/20 10/03/20 triamcinolone acetonide 0.1 % 1 appl topical DAILY PRN Itching 10/03/20 10/03/20 topical cream cetirizine 10 mg tablet 10 mg PO DAILY 04/26/22 clonazepam 0.5 mg tablet 0.5 mg PO TID 04/26/22 lactulose 10 gram/15 mL oral ml PO 04/26/22 solution omeprazole 20 mg capsule,delayed 20 mg PO BID 04/26/22 release Previous Rx's Medication Instructions Recorded levofloxacin 250 mg tablet 500 mg PO DAILY 7 days #14 tabs 03/04/21 metronidazole 500 mg tablet 500 mg PO BID 7 days #14 tabs 03/04/21 (Flagyl) Allergies Allergy/AdvReac Type Severity Reaction Status Date / Time aspirin [ASA] Allergy Unknown RASH Verified 04/26/22 09:38 niacin [Niacin] Allergy Unknown Rash Verified 04/26/22 09:38 penicillin G [Penicillin G] Allergy Unknown HIVES Verified 04/26/22 09:38 rofecoxib [From Vioxx] Allergy Unknown UNKNOWN Verified 04/26/22 09:38 Iodinated Contrast Media Allergy Swelling Verified 04/26/22 09:38 [IV Contrast Dye] moxifloxacin AdvReac Nausea Verified 04/26/22 09:38 Review of Systems Review of Systems: unable to obtain patient is repetitive in agitated cannot be calmed down. [facility] Past Medical History Attestation statement: The following information was validated with the patient. Medical History Anemia Dementia Diabetes mellitus, type 2 Hypertension Social History Social History Alcohol intake: unknown Advance Directives: Yes Advance Directives on File: Yes Advance Directives Date on File: 02/25/21 Physical Exam Vital Signs: Vital Signs: Last Vital Signs Temp 97.9 F 04/30/22 16:00 Pulse 95 04/30/22 16:00 Resp 16 04/30/22 16:00 BP 120/73 04/30/22 16:00 Pulse Ox 98 04/30/22 16:00 O2 Del Method 04/30/22 16:00 BMI result Body Mass Index 17.6 General: Well-appearing well-nourished in no signs of distress HEENT: Normocephalic atraumatic Neck: No signs of JVD, no masses no tenderness or lymphadenopathy Cardiovascular: Regular rate and rhythm Respiratory: Clear to auscultation bilaterally Abdomen: Soft nontender no masses Extremities: Normal pedal pulses no signs of edema Skin: Dry warm no rashes Back: No tenderness full ROM MDM - Psych MDM Narrative Medical decision making narrative: Agitated delirium with baseline dementia I will treat with haldol. I will get a bladder scan as she has had urinary retention in thepast and check labs. The patient will be reassessed. 1648 She was much more calm after haldol labs okay no urinary retention. I will clear medically for Crisis evaluation. Lab Data Result diagrams: 04/30/22 15:54 04/30/22 15:54 Labs: Lab Results 04/30/22 04/30/22 04/30/22 Range/Units 15:45 15:54 15:54 WBC 5.6 (4.8-10.8) X10*3/uL RBC 3.88 L (4.20-5.50) X10*6/uL Hgb 11.2 L (12.0-16.0) g/dl Hct 33.9 L (37.0-47.0) % MCV 87.4 (80.0-98.0) fL MCH 28.9 (27.0-33.0) pg MCHC 33.0 (31.0-35.0) g/dl RDW 13.5 (11.0-16.0) % Plt Count 232 (160-400) X10*3/uL MPV 10.2 (9.4-12.3) fL Immature Gran % (Auto) 0.4 (0.0-0.4) % Neut % (Auto) 66.5 (45-73) % Lymph % (Auto) 24.0 (20-40) % [place] % (Auto) 7.3 (2-11) % Eos % (Auto) 1.4 (0-4) % Baso % (Auto) 0.4 (0-2) % Lymph # (Auto) 1.3 (1.2-4.9) X10*3/uL [place] # (Auto) 0.4 (0.1-1.2) X10*3/uL Eos # (Auto) 0.1 (0.0-0.4) X10*3/uL Baso # (Auto) 0.0 (0.0-0.2) X10*3/uL Abs Immat Gran (auto) 0.02 (0.00-0.03) X10*3/uL Absolute Neuts (auto) 3.7 (2.0-8.3) x10*3/uL Absolute Nucleated RBC 0.000 (0.0-0.012) X10*3/uL Nucleated RBC % (auto) 0.0 (0.0-0.2) /100WBC Sodium 136 (135-145) mmol/L Potassium 4.5 (3.3-5.1) mmol/L Chloride 102 (96-108) mmol/L Carbon Dioxide 24 (22-29) mmol/L Anion Gap 15 (12-20) BUN 22 H (9-16) mg/dL Creatinine 0.99 (0.5-1.4) mg/dL Estim Creat Clear Calc 28.6 Estimated GFR 54 Random Glucose 217 H (60-115) mg/dL Calcium 8.9 (8.4-10.2) mg/dL Ethyl Alcohol < 10 mg/dL COVID-19 (CARMEN) Negative (Negative) COVID-19 Clin Com See Note Discharge Plan Discharge Clinical Impression: Dementia, Agitation due to dementia Patient Disposition: Still a Patient Transfer Details: I will sign out to Dr. Huggins pending evaluation and disposition. Prescriptions: No Action montelukast 10 mg tablet 1 tab PO DAILY metoprolol tartrate 25 mg tablet 1 tab PO BID acetylcysteine 600 mg capsule 2 cap PO BID clonazepam 0.5 mg tablet 1 mg PO TID risperidone 0.25 mg tablet 0.75 mg PO DAILY Rx Instructions: Give at 18:00 gabapentin 100 mg capsule 1 cap PO TID polyethylene glycol 3350 17 gram/dose powder 17 g PO DAILY risperidone 1 mg tablet 1 tab PO DAILY tramadol 50 mg tablet 1 tab PO BID PRN (Reason: Pain) triamcinolone acetonide 0.1 % cream 1 appl topical DAILY PRN (Reason: Itching) fluticasone propion-salmeterol 500-50 mcg/dose blister with device 1 inh inhalation BID hydroxyzine HCl 25 mg tablet 1 tab PO TID PRN (Reason: Itching) ammonium lactate 12 % cream 1 appl topical BID albuterol sulfate 90 mcg/actuation HFA aerosol inhaler 90 mcg inhalation QID PRN (Reason: Dyspnea) fluocinonide 0.05 % cream 1 applic topical DAILY PRN (Reason: Itching) insulin aspart U-100 [Novolog Flexpen U-100 Insulin] 100 unit/mL (3 mL) insulin pen See Rx Instructions .ROUTE .COMPLEX Rx Instructions: With meals and at bedtime Sliding scale Lantus Solostar U-100 Insulin 100 unit/mL (3 mL) insulin pen 20 unit subcut BID metronidazole [Flagyl] 500 mg tablet 500 mg PO BID 7 Days Qty: 14 0RF levofloxacin 250 mg tablet 500 mg PO DAILY 7 Days Qty: 14 0RF lactulose 10 gram/15 mL solution PO omeprazole 20 mg capsule,delayed release(DR/EC) 20 mg PO BID clonazepam 0.5 mg tablet 0.5 mg PO TID cetirizine 10 mg tablet 10 mg PO DAILY
[2022-04-30] MEDS: Haloperidol Lactate 5 MG/ML VIAL IM (14:50)
[2022-04-30 14:57] VITALS: RESP 18; BMI 17.6
[2022-04-30 15:09] VITALS: BP 157/79; PULSE 113; RESP 20
[2022-04-30 15:58] LABS: MANUAL DIFF FLAG NO
[2022-04-30 16:00] VITALS: BP 120/73; PULSE 95; RESP 16; TEMP 36.6; O2SAT 98
[2022-04-30 16:09] LABS: Basophils Percent Auto 0.4 % (0-2); Eosinophils Absolute Auto 0.1 X10*3/uL (0.0-0.4); Eosinophils Percent Auto 1.4 % (0-4); Hematocrit 33.9 % (37.0-47.0); Hemoglobin 11.2 g/dl (12.0-16.0); Imm Gran Abs Auto 0.02 X10*3/uL (0.00-0.03); Imm Gran Pct Auto 0.4 % (0.0-0.4); Lymphocytes Absolute Auto 1.3 X10*3/uL (1.2-4.9); Mean Corpuscular Hemoglobin 28.9 pg (27.0-33.0); Mean Corpuscular Volume 87.4 fL (80.0-98.0); Mean Platelet Volume 10.2 fL (9.4-12.3); Monocytes Absolute Auto 0.4 X10*3/uL (0.1-1.2); Monocytes Percent Auto 7.3 % (2-11); Neutrophils Absolute Auto 3.7 x10*3/uL (2.0-8.3); Neutrophils Percent Auto 66.5 % (45-73); Platelet Count 232 X10*3/uL (160-400); Red Blood Count 3.88 X10*6/uL (4.20-5.50); Red Cell Distribution Width 13.5 % (11.0-16.0); White Blood Count 5.6 X10*3/uL (4.8-10.8)
[2022-04-30 16:16] LABS: COVID-19 Test Negative (Negative)
[2022-04-30 16:17] LABS: Anion Gap 15 (12-20); Blood Urea Nitrogen 22 mg/dL (9-16); Calcium 8.9 mg/dL (8.4-10.2); Carbon Dioxide 24 mmol/L (22-29); Chloride 102 mmol/L (96-108); Creatinine Clr Calc Pharmacy 28.6; Estimated Glomerular Filt Rate 54; Ethanol < 10 mg/dL; Glucose Random 217 mg/dL (60-115); Potassium 4.5 mmol/L (3.3-5.1); Sodium 136 mmol/L (135-145)
[2022-04-30 18:00] VITALS: PULSE 72; RESP 16
--- NOTE | 2022-04-30 18:07 | PHA.MEDREC ---
Pharmacy Consult ? Medication Reconciliation Pharmacy has completed the medication reconciliation.
--- NOTE | 2022-04-30 19:05 | MHC.CM.ED ---
CM received consult. Pt resides at [facility]. Section 12 to ED for aggressive, combative behaviors towards staff and residents. Pt hitting and biting. Unable to re-direct. Pt was aggressive and assaultive in ED. Haldol IM at 1540. Pt resting quietly with sitter at bedside. HX dementia with behavioral disturbance. Was seen at [facility] on 04/22 for same issues. Psych consult at that time made medication changes and restarted medications that were discontinued (depakote/resperidone). VAX/booster/Pfizer 10/22/20, 11/12/20 & 10/22/21. HCP on file. HCP/brother Sarthak Fletcher ([phone]). HCP invoked per [facility]. Work-up and crisis evaluation pending. CM will follow.
--- NOTE | 2022-04-30 19:24 | ED.GENADULT ---
HPI - General Adult General Chief complaint: General Medical Stated complaint: AGGRESIVE/ASSAULT TO STAFF @ SNF Time Seen by Provider: 04/30/22 14:42 Source: patient Mode of arrival: ambulatory Limitations: altered mental status Related Data Home Medications Medication Instructions Recorded Confirmed albuterol sulfate 90 mcg/actuation 2 puff inhalation Q4H PRN Wheezing 10/03/20 04/30/22 aerosol inhaler ammonium lactate 12 % topical cream 1 appl topical BID 10/03/20 04/30/22 clonazepam 0.5 mg tablet 0.5 mg PO TID 10/03/20 04/30/22 fluocinonide 0.05 % topical cream 1 applic topical DAILY PRN Itching 10/03/20 04/30/22 insulin aspart U-100 100 unit/mL See Protocol subcut BIDAC 10/03/20 04/30/22 (3 mL) subcutaneous pen (Novolog Flexpen U-100 Insulin aspart) insulin glargine 100 unit/mL (3 25 unit subcut BID 10/03/20 04/30/22 mL) subcutaneous pen (Lantus Solostar U-100 Insulin) montelukast 10 mg tablet 1 tab PO DAILY 10/03/20 04/30/22 polyethylene glycol 3350 17 17 g PO DAILY 10/03/20 04/30/22 gram/dose oral powder risperidone 0.25 mg tablet 0.25 mg PO BEDTIME 10/03/20 04/30/22 triamcinolone acetonide 0.1 % 1 appl topical DAILY PRN Itching 10/03/20 04/30/22 topical cream cetirizine 10 mg tablet 10 mg PO DAILY 04/26/22 04/30/22 lactulose 10 gram/15 mL oral 30 ml PO BID 04/26/22 04/30/22 solution omeprazole 20 mg capsule,delayed 20 mg PO BID 04/26/22 04/30/22 release hydromorphone 2 mg tablet 1 mg PO DAILY 04/30/22 04/30/22 (Dilaudid) metoprolol succinate 25 mg 25 mg PO BID 04/30/22 04/30/22 tablet,extended release 24 hr (Toprol XL) nitroglycerin 0.4 mg sublingual 0.4 mg sublingual Q5M PRN Chest 04/30/22 04/30/22 tablet Pain olopatadine 0.1 % eye drops 1 drp ophthalmic (eye) BID 04/30/22 04/30/22 risperidone 0.5 mg tablet 0.5 mg PO DAILY 04/30/22 04/30/22 (Risperdal) Allergies Allergy/AdvReac Type Severity Reaction Status Date / Time aspirin [ASA] Allergy Unknown RASH Verified 04/26/22 09:38 niacin [Niacin] Allergy Unknown Rash Verified 04/26/22 09:38 penicillin G [Penicillin G] Allergy Unknown HIVES Verified 04/26/22 09:38 rofecoxib [From Vioxx] Allergy Unknown UNKNOWN Verified 04/26/22 09:38 Iodinated Contrast Media Allergy Swelling Verified 04/26/22 09:38 [IV Contrast Dye] moxifloxacin AdvReac Nausea Verified 04/26/22 09:38 [facility] Past Medical History Medical History Anemia Dementia Diabetes mellitus, type 2 Hypertension Social History Social History Alcohol intake: unknown Advance Directives: Yes Advance Directives on File: Yes Advance Directives Date on File: 02/25/21 Physical Exam ED Vital Signs: Vital Signs - 24 hr 04/30/22 14:57 04/30/22 15:09 04/30/22 16:00 Temperature 97.9 F Pulse Rate 113 H 95 Respiratory Rate 18 20 16 Blood Pressure 157/79 H 120/73 Pulse Oximetry 98 Oxygen Delivery Method Room Air Room Air 04/30/22 18:00 Temperature Pulse Rate 72 Respiratory Rate 16 Blood Pressure Pulse Oximetry Oxygen Delivery Method BMI result Body Mass Index 17.6 Medical Decision Making Lab Data Result diagrams: 04/30/22 15:54 04/30/22 15:54 Labs: Lab Results 04/30/22 04/30/22 04/30/22 Range/Units 15:45 15:54 15:54 WBC 5.6 (4.8-10.8) X10*3/uL RBC 3.88 L (4.20-5.50) X10*6/uL Hgb 11.2 L (12.0-16.0) g/dl Hct 33.9 L (37.0-47.0) % MCV 87.4 (80.0-98.0) fL MCH 28.9 (27.0-33.0) pg MCHC 33.0 (31.0-35.0) g/dl RDW 13.5 (11.0-16.0) % Plt Count 232 (160-400) X10*3/uL MPV 10.2 (9.4-12.3) fL Immature Gran % (Auto) 0.4 (0.0-0.4) % Neut % (Auto) 66.5 (45-73) % Lymph % (Auto) 24.0 (20-40) % [place] % (Auto) 7.3 (2-11) % Eos % (Auto) 1.4 (0-4) % Baso % (Auto) 0.4 (0-2) % Lymph # (Auto) 1.3 (1.2-4.9) X10*3/uL [place] # (Auto) 0.4 (0.1-1.2) X10*3/uL Eos # (Auto) 0.1 (0.0-0.4) X10*3/uL Baso # (Auto) 0.0 (0.0-0.2) X10*3/uL Abs Immat Gran (auto) 0.02 (0.00-0.03) X10*3/uL Absolute Neuts (auto) 3.7 (2.0-8.3) x10*3/uL Absolute Nucleated RBC 0.000 (0.0-0.012) X10*3/uL Nucleated RBC % (auto) 0.0 (0.0-0.2) /100WBC Sodium 136 (135-145) mmol/L Potassium 4.5 (3.3-5.1) mmol/L Chloride 102 (96-108) mmol/L Carbon Dioxide 24 (22-29) mmol/L Anion Gap 15 (12-20) BUN 22 H (9-16) mg/dL Creatinine 0.99 (0.5-1.4) mg/dL Estim Creat Clear Calc 28.6 Estimated GFR 54 Random Glucose 217 H (60-115) mg/dL Calcium 8.9 (8.4-10.2) mg/dL Ethyl Alcohol < 10 mg/dL COVID-19 (CARMEN) Negative (Negative) COVID-19 Clin Com See Note Discharge Plan Discharge Clinical Impression: Dementia, Agitation due to dementia Patient Disposition: Still a Patient Transfer Details: I will sign out to Dr. Huggins pending evaluation and disposition. Prescriptions: No Action montelukast 10 mg tablet 1 tab PO DAILY clonazepam 0.5 mg tablet 0.5 mg PO TID risperidone 0.25 mg tablet 0.25 mg PO BEDTIME polyethylene glycol 3350 17 gram/dose powder 17 g PO DAILY triamcinolone acetonide 0.1 % cream 1 appl topical DAILY PRN (Reason: Itching) ammonium lactate 12 % cream 1 appl topical BID albuterol sulfate 90 mcg/actuation HFA aerosol inhaler 2 puff inhalation Q4H PRN (Reason: Wheezing) fluocinonide 0.05 % cream 1 applic topical DAILY PRN (Reason: Itching) insulin aspart U-100 [Novolog Flexpen U-100 Insulin] 100 unit/mL (3 mL) insulin pen See Protocol subcut BIDAC Protocol: Insulin Correction Scale Less than or equal to 110 ---- Give (units): 0 111 to 150 Give (units): 0 151 to 200 Give (units): 2 201 to 250 Give (units): 4 251 to 300 Give (units): 6 301 to 350 Give (units): 8 Greater than 350 Give (units): 10 Call MD if Blood Glucose > : 350 insulin glargine [Lantus Solostar U-100 Insulin] 100 unit/mL (3 mL) insulin pen 25 unit subcut BID hydromorphone [Dilaudid] 2 mg Tablet 1 mg PO DAILY olopatadine [Patanol] 0.1 % Drops 1 drp OPHTHALMIC (EYE) BID Rx Instructions: separate doses by at least 6-8 hours nitroglycerin 0.4 mg Tablet, Sublingual 0.4 mg SUBLINGUAL Q5M PRN (Reason: Chest Pain) Rx Instructions: do not exceed 3 doses per episode metoprolol succinate [Toprol XL] 25 mg Tablet Extended Release 24 Hr 25 mg PO BID risperidone [Risperdal] 0.5 mg Tablet 0.5 mg PO DAILY lactulose 10 gram/15 mL solution 30 ml PO BID omeprazole 20 mg capsule,delayed release(DR/EC) 20 mg PO BID cetirizine 10 mg tablet 10 mg PO DAILY
[2022-04-30 20:28] VITALS: BP 160/87; PULSE 88; RESP 16; TEMP 36.6; O2SAT 98
--- NOTE | 2022-04-30 20:29 | PC.NURSE ---
PATIENT GOT PSYCHIATRIC ORDERLY INTO HOSPITAL ATTIRE ,,PATIET WAS GIVEN DINNER ,BUT REFUSED TO EAT ,DRANK 2 CUPS OF COFFEE .
[2022-04-30 21:18] LABS: Appearance Urine CLEAR; Color Urine YELLOW; Glucose Urine UA NEG (NEG); Leukocyte Esterase Urine NEG (NEG); Nitrite Urine NEG (NEG); Urine Blood NEG (NEG); Urine Ketones NEG (NEG); Urine Protein NEG (NEG-TRACE)
[2022-04-30 21:25] LABS: Amphetamine Screen Urine Not Detected (Not Detect); Barbiturates, Urine Not Detected (Not Detect); Benzodiazepines Screen Urine Not Detected (Not Detect); Cannabinoid Screen Urine Not Detected (Not Detect); Cocaine Screen Urine Not Detected (Not Detect); Fentanyl, urine Not Detected (Not Detect); Opiate Screen Urine Not Detected (Not Detect); Phencyclidine Screen Urine Not Detected (Not Detect)
[2022-04-30 21:48] VITALS: BP 174/77; PULSE 84; RESP 16; TEMP 36.6; O2SAT 98
--- NOTE | 2022-04-30 21:54 | ECG_ITS ---
Test Reason : cp Blood Pressure : / mmHG Vent. Rate : 078 BPM Atrial Rate : 078 BPM P-R Int : 138 ms QRS Dur : 114 ms QT Int : 422 ms P-R-T Axes : 058 013 094 degrees QTc Int : 481 ms Normal sinus rhythm Incomplete left bundle branch block Prolonged QT Abnormal ECG When compared with ECG of 22-APR-2022 12:55, No significant change was found Referred By: Asif Hutchinson Electronically Signed By:Dakota Mcfadden
[2022-04-30 23:09] LABS: Troponin-I High Sensitivity 8.9 ng/L (<3.5-17.0)
[2022-05-01] VITALS (7 sets, daily range): BP systolic 138–152; BP diastolic 70–84; PULSE 80–88; RESP 16–20; TEMP 36.7; O2SAT 96–98
--- NOTE | 2022-05-01 05:36 | PC.NURSE ---
Resumed care at 3:00am from Wendi. Pt sleeping at this time.
--- NOTE | 2022-05-01 07:16 | PC.NURSE ---
Report received from Maggie PECK. Patient is asleep at this time. Respirations regular and even with equal chest rise/fall. Will continue to monitor.
[2022-05-01 09:20] LABS: Glucose, Whole Blood 106 mg/dL (60-115)
[2022-05-01] MEDS: risperiDONE 0.5 MG TABLET PO (09:25)
[2022-05-01] MEDS: Loratadine 10 MG TABLET PO (09:25)
[2022-05-01] MEDS: Metoprolol Succinate ER 25 MG TAB.ER.24H PO ×2 (09:25→22:55)
[2022-05-01] MEDS: HYDROmorphone HCl 2 MG TABLET 1 MG PO (09:26)
[2022-05-01] MEDS: Omeprazole 20 MG CAPSULE.DR PO ×2 (09:26→22:56)
[2022-05-01] MEDS: Lactulose 20 GM/30 ML SOLUTION PO (09:27)
[2022-05-01] MEDS: Insulin Glargine,Hum.rec.anlog 100 UNIT/ML 10 ML VIAL 25 UNIT SUBCUT (09:27)
[2022-05-01] MEDS: Montelukast Sodium 10 MG TABLET PO (09:28)
[2022-05-01] MEDS: polyethylene glycoL 3350 17 GM POWD.PACK PO (09:28)
[2022-05-01] MEDS: clonazePAM 0.5 MG TABLET PO ×3 (09:28→22:55)
[2022-05-01] MEDS: Ammonium Lactate 12 % Cream 140 GM TUBE 1 APPL TOPICAL ×2 (09:58→22:57)
--- NOTE | 2022-05-01 10:12 | PC.NURSE ---
Patient resting comfortably on stretcher. Up to commode twice and ambulates independently with this RN close for support. Patient calm and cooperative, took AM medications without a problem. Respirations regular and even. Skin PWD. Will continue to monitor.
--- NOTE | 2022-05-01 13:35 | PC.NURSE ---
Patient remains calm and cooperative. Up to use commode with assistance. Respirations regular and even. Skin PWD. Eating independently at this time.
--- NOTE | 2022-05-01 13:40 | MHC.CM.ED ---
Patient remains in ER. Is from [facility]. Crisis eval is still pending. Continue to monitor for d/c needs.
--- NOTE | 2022-05-01 15:35 | PC.NURSE ---
resumed care from agata, patient awake/alert, sitter at bedside, pt denies pain at this time, vss, will continue to monitor.
[2022-05-01] MEDS: Haloperidol Lactate 5 MG/ML VIAL IM (16:45)
[2022-05-01] MEDS: OLANZapine 10 MG VIAL 5 MG IM (17:52)
--- NOTE | 2022-05-01 17:53 | PC.NURSE ---
unable to give po medications as patient was spitting, provider notified im medication to be given, unable to get vitals at this time, pt rr stable
--- NOTE | 2022-05-01 18:54 | PC.NURSE ---
pt continues to be combative attempting to hit and bite staff when we get close to her, unable to obtain vitals, rr is wnl, breathing is non-labored, call chris within reach, sitter at bedside, will continue to monitor
--- NOTE | 2022-05-01 20:55 | PC.NURSE ---
[facility]BAL[facility] online referral completed by this RN.
--- NOTE | 2022-05-01 21:00 | MHC.CM.ED ---
Pt has not had crisis evaluation. CARE TEAM called. Requested RN SMART sheet to be completed. CM spoke with Christa VIRAMONTES. SMART sheet (N on line referral completed). Per patient observer, pt is now quiet, but has been aggressive, kicking and attempting to hit staff. Trying to get OOB. Ate only bites, was trying to throw food. CM will follow if needed after Crisis eval.
[2022-05-01] MEDS: risperiDONE 0.25 MG TABLET PO (22:55)
--- NOTE | 2022-05-01 23:03 | PC.NURSE ---
pt would only take meds finely crushed in pudding, pt spit out the meds when they were whole. pt also refused lactulose, and this nurse spoke with candy-provider and was verbally ok'd to hold lantus due to patient refusing food and her blood sugar being only 101
[2022-05-02] VITALS (7 sets, daily range): BP systolic 102–135; BP diastolic 58–69; PULSE 60–108; RESP 13–20; TEMP 37.1; O2SAT 95–966
[2022-05-02 00:42] LABS: Glucose, Whole Blood 101 mg/dL (60-115)
[2022-05-02 07:32] LABS: Glucose, Whole Blood 116 mg/dL (60-115)
--- NOTE | 2022-05-02 09:04 | PC.NURSE ---
pt is currently sleeping, respirations even and unlabored in no apparent distress at this time
--- NOTE | 2022-05-02 09:19 | MHC.CARE ---
cleared by [facility] case management notified
--- NOTE | 2022-05-02 10:33 | MHC.CARE ---
Pt cleared by N, Per N Pt is not presenting at imminent risk to herself or others and does require IPLOC admission at this time and cleared to return to residences.
--- NOTE | 2022-05-02 11:04 | PC.NURSE ---
pt continuos on sleeping, respirations even and unlabored.
--- NOTE | 2022-05-02 11:27 | MHC.CARE ---
Pt cleared by N, Per N Pt is not presenting at imminent risk to herself or others and does not require IPLOC admission at this time and is cleared to return to residences.
[2022-05-02] MEDS: risperiDONE 0.5 MG TABLET PO (13:35)
[2022-05-02] MEDS: clonazePAM 0.5 MG TABLET PO ×2 (13:36→18:46)
[2022-05-02] MEDS: Montelukast Sodium 10 MG TABLET PO (13:40)
--- NOTE | 2022-05-02 13:40 | PC.NURSE ---
Addendum entered by Anabel Lux 05/02/22 19:13: pt's right great toe, very foul smelling/black under the toe Original Note: pt woken up to eat lunch and this rn medicated her with the pt's 0900 medications at first pt very groggy put was taking her medications crushed with pudding uncertainly the metrolpol is not able to crush because its extended release so this this broke the tab in half and gave to the pt with pudding but pt spits it right out
[2022-05-02] MEDS: Loratadine 10 MG TABLET PO (13:44)
--- NOTE | 2022-05-02 13:45 | MHC.CM.ED ---
Patient remains in ER. Last IM medication was given on 05/01 at 1645. Per Kaila at [facility], patient can't receive any IM medications for 72 hours before building will be able to accept patient back. Continue to monitor for d/c needs.
[2022-05-02] MEDS: Ammonium Lactate 12 % Cream 140 GM TUBE 1 APPL TOPICAL ×2 (13:47→20:58)
[2022-05-02 13:52] LABS: Glucose, Whole Blood 143 mg/dL (60-115)
[2022-05-02] MEDS: Insulin Glargine,Hum.rec.anlog 100 UNIT/ML 10 ML VIAL 25 UNIT SUBCUT (13:52)
[2022-05-02] MEDS: Lactulose 20 GM/30 ML SOLUTION PO ×2 (13:54→20:56)
[2022-05-02 18:37] LABS: Glucose, Whole Blood 117 mg/dL (60-115)
--- NOTE | 2022-05-02 18:54 | PC.NURSE ---
per case management if pt is not medicated with IM injections for the next 72 hours pt can return back to [facility]
[2022-05-02 20:33] LABS: MANUAL DIFF FLAG NO
[2022-05-02 20:34] LABS: Glucose, Whole Blood 250 mg/dL (60-115)
[2022-05-02 20:34] LABS: Basophils Percent Auto 0.3 % (0-2); Eosinophils Absolute Auto 0.1 X10*3/uL (0.0-0.4); Eosinophils Percent Auto 1.8 % (0-4); Hematocrit 37.5 % (37.0-47.0); Hemoglobin 12.4 g/dl (12.0-16.0); Imm Gran Abs Auto 0.02 X10*3/uL (0.00-0.03); Imm Gran Pct Auto 0.3 % (0.0-0.4); Lymphocytes Absolute Auto 1.4 X10*3/uL (1.2-4.9); Mean Corpuscular HGB Conc 33.1 g/dl (31.0-35.0); Mean Corpuscular Hemoglobin 28.4 pg (27.0-33.0); Mean Platelet Volume 10.1 fL (9.4-12.3); Monocytes Absolute Auto 0.6 X10*3/uL (0.1-1.2); Monocytes Percent Auto 9.6 % (2-11); Neutrophils Absolute Auto 3.8 x10*3/uL (2.0-8.3); Platelet Count 247 X10*3/uL (160-400); Red Blood Count 4.36 X10*6/uL (4.20-5.50); Red Cell Distribution Width 13.5 % (11.0-16.0)
[2022-05-02 20:50] LABS: Anion Gap 16 (12-20); Blood Urea Nitrogen 32 mg/dL (9-16); C Reactive Protein 0.35 mg/dL (< or = 0.50); Calcium 9.1 mg/dL (8.4-10.2); Carbon Dioxide 22 mmol/L (22-29); Chloride 103 mmol/L (96-108); Creatinine Clr Calc Pharmacy 17.9; Estimated Glomerular Filt Rate 31; Glucose Random 294 mg/dL (60-115); Prothrombin Time 11.7 SEC (10.0-13.1); Sodium 136 mmol/L (135-145)
[2022-05-02] MEDS: Insulin Lispro 100 UNIT/ML 3 ML VIAL SUBCUT (20:55)
[2022-05-02] MEDS: Metoprolol Succinate ER 25 MG TAB.ER.24H PO (20:55)
[2022-05-02] MEDS: Omeprazole 20 MG CAPSULE.DR PO (20:58)
[2022-05-02] MEDS: risperiDONE 0.25 MG TABLET PO (20:58)
[2022-05-02 21:07] LABS: Erythrocyte Sedimentation Rate 32 MM/HR (0-20)
--- NOTE | 2022-05-02 23:18 | PC.NURSE ---
Assumed care of pt. at 2300 from Jose Pinon RN
--- NOTE | 2022-05-03 03:49 | PC.NURSE ---
Pt. resting quietly at this time. No complaints, no distress noted. Will continue to monitor
[2022-05-03 08:14] LABS: Glucose, Whole Blood 155 mg/dL (60-115)
--- NOTE | 2022-05-03 08:58 | PC.NURSE ---
patient arousable . patient verbalizing incoherent word salad . refused medication in AM attempted with use of applesauce and pudding , patient spit medication out . lungs clear . skin pink warm and dry . . patient refused breakfast tray in , pushing it away .. bed at lowest possible level . continue to monitor patient .
[2022-05-03 09:03] VITALS: BP 152/87; PULSE 89; RESP 16; TEMP 36.5; O2SAT 100
--- NOTE | 2022-05-03 10:30 | PC.NURSE ---
patient cooperative and calm motioning for food . breakfast was heated up ate . pt received 2 units of insulin coverage . she took most of morning medication after eating with no incidences . reported a pain level of 6/10 all over her body . patient was toileted and repositioned in bed . [employer] Perlita assess patients left toe that previously been examined for infection , no changes noted . bed at lowest position position possible .
[2022-05-03] MEDS: Insulin Lispro 100 UNIT/ML 3 ML VIAL SUBCUT (11:02)
[2022-05-03] MEDS: clonazePAM 0.5 MG TABLET PO ×2 (11:21→22:53)
[2022-05-03] MEDS: HYDROmorphone HCl 2 MG TABLET 1 MG PO (11:22)
[2022-05-03] MEDS: Loratadine 10 MG TABLET PO (11:27)
[2022-05-03] MEDS: Montelukast Sodium 10 MG TABLET PO (11:28)
[2022-05-03] MEDS: Metoprolol Succinate ER 25 MG TAB.ER.24H PO ×2 (11:28→22:53)
[2022-05-03] MEDS: risperiDONE 0.5 MG TABLET PO (11:29)
--- NOTE | 2022-05-03 12:35 | PC.NURSE ---
attempted to take POC glucose, pt refused and attempted to bite PCT, this manual writer. POC glucose not obtained.
--- NOTE | 2022-05-03 13:04 | PC.NURSE ---
pt refused blood draw at 1300.
--- NOTE | 2022-05-03 13:50 | PC.NURSE ---
patient attempted several times to void on bed desouza without success . patient was guarding pelvic and lower abdomen area .bladder scan reveled greater than 371 ml of urine in bladder . patient transferred to [facility] with assistance of tech to void and urine was obtained , patient only voided . post void bladder scan was 341 ml . ICE CAR[employer] Perlita notified and order obtained for UA . patient aware of plan of care with use of sign language interpreter .
--- NOTE | 2022-05-03 14:00 | PC.NURSE ---
patient adamantly refused POC and lunch . several attempts made . fluids encouraged , patient drank 180 water . insulin sliding scale not given . provider aware .
[2022-05-03 14:32] LABS: Appearance Urine CLOUDY; Color Urine YELLOW; Glucose Urine UA NEG (NEG); Leukocyte Esterase Urine 1+ (NEG); Nitrite Urine POS (NEG); PH 5.5 (5.0-8.0); Specific Gravity - Urine >= 1.030 (1.005-1.025); UACC Culture Trigger YES; Urine Blood NEG (NEG); Urine Ketones NEG (NEG); Urine Protein 1+ MG/DL (NEG-TRACE)
[2022-05-03 14:53] LABS: Bacteria Urine 3+ /LPF; RBC Urine 0 /HPF (0); Squamous Epithelial Cell Urine 4+ /LPF
[2022-05-03] MEDS: LORazepam 1 MG TABLET 2 MG PO (17:00)
--- NOTE | 2022-05-03 17:17 | PC.NURSE ---
Pt has been very difficult to manage since taking assignment at 1500. Agitated, swatting at staff, attempting to bite. sitter has needed to remain hands on for majority of time. Pt did take ativan crushed in pudding and with 3 person assist, stright cath and blood were obtained. Pt was bladder scanned for 500ml but only 300 were obtained in straight cath.
[2022-05-03 17:31] LABS: Anion Gap 20 (12-20); Blood Urea Nitrogen 37 mg/dL (9-16); Calcium 9.1 mg/dL (8.4-10.2); Carbon Dioxide 20 mmol/L (22-29); Chloride 101 mmol/L (96-108); Creatinine Clr Calc Pharmacy 22.5; Estimated Glomerular Filt Rate 41; Glucose Random 306 mg/dL (60-115); Potassium 4.7 mmol/L (3.3-5.1); Sodium 136 mmol/L (135-145)
--- NOTE | 2022-05-03 18:30 | PC.NURSE ---
Pt finally resting, sitter no longer needed at arm's reach.
[2022-05-03 18:42] VITALS: BP 145/80; PULSE 104; RESP 20; O2SAT 96
[2022-05-03] MEDS: 0.9 % Sodium Chloride 1,000 ML 999 ML IVCONT (19:25)
[2022-05-03 20:50] LABS: Glucose, Whole Blood 105 mg/dL (60-115)
[2022-05-03] MEDS: Omeprazole 20 MG CAPSULE.DR PO (22:53)
[2022-05-03] MEDS: Lactulose 20 GM/30 ML SOLUTION PO (22:53)
--- NOTE | 2022-05-04 04:27 | PC.NURSE ---
pt sleeping comfortably on stretcher. no apparent distress, equal chest rise and fall. call chris within reach. continuous monitoring in place.
[2022-05-04 05:46] VITALS: BP 140/64; PULSE 62; RESP 16; TEMP 36.6; O2SAT 97
[2022-05-04 07:30] LABS: Glucose, Whole Blood 132 mg/dL (60-115)
[2022-05-04] MEDS: Metoprolol Succinate ER 25 MG TAB.ER.24H PO ×2 (09:15→20:19)
[2022-05-04] MEDS: Omeprazole 20 MG CAPSULE.DR PO ×2 (09:15→20:19)
[2022-05-04] MEDS: Montelukast Sodium 10 MG TABLET PO (09:16)
[2022-05-04] MEDS: Lactulose 20 GM/30 ML SOLUTION PO ×2 (09:16→20:19)
[2022-05-04] MEDS: polyethylene glycoL 3350 17 GM POWD.PACK PO (09:19)
[2022-05-04] MEDS: risperiDONE 0.5 MG TABLET PO (10:00)
[2022-05-04] MEDS: HYDROmorphone HCl 2 MG TABLET 1 MG PO (10:00)
[2022-05-04] MEDS: Loratadine 10 MG TABLET PO (10:45)
[2022-05-04] MEDS: clonazePAM 0.5 MG TABLET PO ×3 (10:45→20:19)
[2022-05-04] MEDS: LORazepam 1 MG TABLET PO (12:25)
[2022-05-04 13:01] LABS: Glucose, Whole Blood 155 mg/dL (60-115)
[2022-05-04] MEDS: Insulin Lispro 100 UNIT/ML 3 ML VIAL SUBCUT ×2 (13:26→19:40)
[2022-05-04] MEDS: Ammonium Lactate 12 % Cream 140 GM TUBE 1 APPL TOPICAL (14:29)
--- NOTE | 2022-05-04 15:31 | PC.NURSE ---
pat got dressed herself and was constantly talking in micronesian but not making much sense. was also wandering the halls and would not sit or lay in her bed for several hours even though I medicated her with Ativan. Agus trammell
[2022-05-04 16:06] VITALS: BP 163/81; PULSE 66; RESP 16; TEMP 36.6; O2SAT 97
[2022-05-04] MEDS: Acetaminophen 325 MG TABLET 650 MG PO (16:58)
[2022-05-04 18:18] LABS: Glucose, Whole Blood 164 mg/dL (60-115)
[2022-05-04] MEDS: risperiDONE 0.25 MG TABLET PO (20:19)
[2022-05-04] MEDS: OLANZapine 2.5 MG TABLET PO (20:26)
--- NOTE | 2022-05-04 21:19 | PC.NURSE ---
Care resumed from sitter at 3pm ,patient was calm and cooperative ,went for several walks around the department ,ate dinner ,as the night goes by patient became very agitated and combative towards staff ,trying to bite staff ,slapping ,kicking went for more walks ,use bathroom several times ,food and drinks given ,also patient had a large loose bowel movement and voided a few times ,back in bed at this time .
[2022-05-04 21:36] VITALS: BP 153/71; PULSE 85; RESP 16; TEMP 36.6; O2SAT 97
[2022-05-04 22:07] LABS: Glucose, Whole Blood 149 mg/dL (60-115)
--- NOTE | 2022-05-04 22:52 | PC.NURSE ---
PATIENT CONTINUE TO BE AGITATED AND TRYING TO JUMP OUT OF BED ,RN AWARE .
--- NOTE | 2022-05-04 23:47 | PC.NURSE ---
pt ambulatory to and from bathroom with one staff assist. continuous monitoring in place. call chris within reach. pt to be constantly redirected to bed. bedtime medications given . will continue to monitor closely
--- NOTE | 2022-05-05 02:00 | PC.NURSE ---
pt sleeping comfortably on stretcher
[2022-05-05 07:15] LABS: Glucose, Whole Blood 141 mg/dL (60-115)
[2022-05-05 10:48] VITALS: BP 147/72; PULSE 70; RESP 16; O2SAT 99
[2022-05-05] MEDS: HYDROmorphone HCl 2 MG TABLET 1 MG PO (10:51)
[2022-05-05] MEDS: Omeprazole 20 MG CAPSULE.DR PO ×2 (10:52→19:59)
[2022-05-05] MEDS: clonazePAM 0.5 MG TABLET PO ×2 (10:52→19:58)
[2022-05-05] MEDS: risperiDONE 0.5 MG TABLET PO (10:52)
[2022-05-05] MEDS: Loratadine 10 MG TABLET PO (10:52)
[2022-05-05] MEDS: Metoprolol Succinate ER 25 MG TAB.ER.24H PO ×2 (10:52→19:59)
[2022-05-05] MEDS: Montelukast Sodium 10 MG TABLET PO (10:53)
[2022-05-05] MEDS: polyethylene glycoL 3350 17 GM POWD.PACK PO (10:53)
[2022-05-05] MEDS: Ammonium Lactate 12 % Cream 140 GM TUBE 1 APPL TOPICAL ×2 (10:53→22:03)
[2022-05-05] MEDS: Lactulose 20 GM/30 ML SOLUTION PO ×2 (10:53→19:58)
--- NOTE | 2022-05-05 17:22 | PC.NURSE ---
PT IRRITABLE, OOB WALKING AROUND ER, PUSHING STAFF WHEN REDIRECTED. PT WENT INTO BATHROOM THEN CAME BACK OUT AND ACEPTED REDIRECTION TO HER BED ROOM. PT WAS PREVIOUSLY SCRATCHING AT HER ARM, USING BREAD TO SCRATCH HER ARM. OFFERED LOTION. PT PUSHING T/W AWAY BUT AFTER BEING INFORMED THAT IT WILL HELP HER ITCHING PT ALLOWED T/W TO APPLY.
[2022-05-05 18:55] LABS: Glucose, Whole Blood 192 mg/dL (60-115)
[2022-05-05] MEDS: risperiDONE 0.25 MG TABLET PO (19:59)
[2022-05-05] MEDS: Insulin Lispro 100 UNIT/ML 3 ML VIAL SUBCUT (22:02)
[2022-05-05 22:04] VITALS: BP 146/74; PULSE 68; RESP 14; TEMP 36.7; O2SAT 97
[2022-05-06 03:12] VITALS: RESP 16
[2022-05-06 06:21] LABS: Glucose, Whole Blood 169 mg/dL (60-115)
[2022-05-06 07:14] VITALS: BP 134/56; PULSE 68; RESP 16
[2022-05-06 07:33] LABS: Glucose, Whole Blood 157 mg/dL (60-115)
[2022-05-06 07:39] VITALS: BP 135/55; PULSE 67; RESP 18; O2SAT 97
[2022-05-06] MEDS: Omeprazole 20 MG CAPSULE.DR PO (09:54)
[2022-05-06] MEDS: Metoprolol Succinate ER 25 MG TAB.ER.24H PO (09:54)
[2022-05-06] MEDS: Lactulose 20 GM/30 ML SOLUTION PO (09:54)
[2022-05-06] MEDS: Montelukast Sodium 10 MG TABLET PO (09:54)
[2022-05-06] MEDS: polyethylene glycoL 3350 17 GM POWD.PACK PO (09:54)
[2022-05-06] MEDS: Loratadine 10 MG TABLET PO (09:54)
[2022-05-06] MEDS: risperiDONE 0.5 MG TABLET PO (09:54)
[2022-05-06] MEDS: Ammonium Lactate 12 % Cream 140 GM TUBE 1 APPL TOPICAL (10:03)
[2022-05-06] MEDS: OLANZapine 10 MG TABLET PO (10:34)
[2022-05-06 15:25] LABS: COVID-19 Test Negative (Negative)
--- NOTE | 2022-05-06 16:00 | MHC.CM.ED ---
Auth obtained by [facility]. Pt to return. [facility] booked for 5pm. Med Nec on chart. RN/MD aware.
--- NOTE | 2022-05-06 17:09 | PC.NURSE ---
attempted to call in RN report to [facility] twice, no answer.
--- NOTE | 2022-05-06 17:52 | PC.NURSE ---
urine sample obtained, RN-RN report given.
[2022-05-06 17:58] LABS: Appearance Urine CLOUDY; Color Urine YELLOW; Glucose Urine UA NEG (NEG); Leukocyte Esterase Urine 2+ (NEG); Nitrite Urine NEG (NEG); PH 5.5 (5.0-8.0); UACC Culture Trigger YES; Urine Blood TRACE (NEG); Urine Ketones NEG (NEG); Urine Protein 1+ MG/DL (NEG-TRACE)
[2022-05-06 18:13] LABS: Bacteria Urine 1+ /LPF; Squamous Epithelial Cell Urine 4+ /LPF
[2022-05-06 18:14] LABS: RBC Urine 0-2 /HPF (0)
== END 2022-05-06 17:56 | disposition skilled nursing facility (03) ==
PROVIDERS: Internal Medicine; Nurse Practitioner Family; Physician Assistant; Emergency Provider Student in an Organized Health Care Education/Training Program; PCP Family Medicine
DX: F03.91 Unspecified dementia, unspecified severity, with behavioral disturbance (principal); R45.1 Restlessness and agitation; D64.9 Anemia, unspecified; E11.9 Type 2 diabetes mellitus without complications; I10 Essential (primary) hypertension; Z79.4 Long term (current) use of insulin; Z79.899 Other long term (current) drug therapy
CPT/HCPCS: 36415; 51798; 73660; 80048; 80307; 81001; 81003; 82077; 82947; 84484; 85025; 85610; 85652; 86140; 87086; 87088; 87186; 87635; 93005; 96360; 96372; 99285